=== PATIENT | female | born 1975 | race Caucasian/White ===

== ENCOUNTER 2019-07-22 15:30 | Outpatient (RCR) | payer OTHER, SELFPAY ==
--- NOTE | 2019-06-27 16:02 | HP.OTEVAL ---
Patient's Visit Information MARY JO MALDONADO is a 43 year old F, referred to Occupational Therapy by Jose D Duran MD, with a diagnosis of right Metacapal. Date of Evaluation: 06/27/19 Occupational Therapist: HERNANDEZ Maurer/Jonah, CHT - Subjective Subjective: This 43 year old female was seen for OT eval with dx. of closed displaced fx of neck of 5th Metacarpal bone- about two weeks ago- sx was 2018. Order is for hand based orthoplast orthosis in safe position- allowed to start active motion now active assistive motion at 2-4 weeks NO gripping for 4 weeks. Pt s/p 1 week 1 day s/p ORIF MC neck fracture with headless screw. - Pain right hand 2 Pain Intensity Range: 2, 6 - ROM ROM Comments: right LF MCP 0/10 PIP -15/50. right RF MCP 0/30 PIP 65. right MF MCP 0/65 PIP 100 - Strength Hearing Aid Repairer: right NT left 55# Lateral Pinch: right NT left 12# Tripod Pinch: right NT left 14# - Sensation Sensation Comments: denies - Quick DASH-Disab of Arm,Shoulder& Hand Quick DASH Score: 68.3325 - Goals Goal:: Pt will demo an increase in right composite fist equal to unaffected left composite fist to return pt to OF with grooming, dressing and home mtg tasks by D/C. Pt will demo the ability to form a composite fist to hold and receive 10 coins without dropping coins/ and coin manipulation/money mtg. tasks by D/C. Pt will demo the ability to form a composite fist to return to performing BADLs and IADLS at PLOF by d/c. Goal:: Pt will report pain no greater than 1/10 with use of affected hand with BADLs and IADLs by d/c. Goal:: Pt will demo improvement with FMS demo by IND with manipulating fasteners by d/c Goal:: Pt will demo ind. Donning/doffing of custom orthosis by end of 1st session. Pt will demonstrate understanding of orthosis use and precautions by end of 1st session and demonstrate knowledge of returning to clinic if orthosis needs adj. to increase comfort by end of 1st session. - Rehabilitation General Assessment: PT demo 1 week and 1 day s/p ORIF MC neck fracture with headless screw- pt demo crystal newrosa healing fx, limited ROM and pain. Pt demo need for skilled OT services 1-2 x week for to provide custom orthosis (hand based intrinsic safe position). along with ROM ex. Today pt was van. custom orthosis hand based -therapist attempted to get pt in intrisic safe position pt to painful to ken. positioning- able to get MCP to 40* flex- pt ed. pt on precautions of orthosis, skin care and use. pt demo understanding and demo IND. donning and doffing orthosis. pt request HEP- therapist ed. pt on dr. order on ROM- pt demo understanding- pt to return if orthosis req. adj. to increase comfort and use. pt demo understanding and agree to POC. Rehabilitation Potential: Good - Anticipated Interventions Anticipated Interventions: A/AAROM/PROM, Strengthening, Triggerpoint Release, Desensitization, Fine Motor Coord/Padilla - Visit Plan Frequency: 1-2x /Week Duration: 6 Weeks TEXT: Thank you for the opportunity to evaluate your patient. For Medicare and Medicare HMO plans, please review the plan of care and approve it. It will need to be FAXED BACK to us at [phone] for Medicare purposes. Please let me know if there are questions or concerns regarding this plan of care. Physician Signature: Date:
--- NOTE | 2019-07-22 16:04 | HP.OTDCSUM_ITS ---
HP - OT D/C Summary It has been my pleasure to treat MARY JO MALDONADO under orders from Jose D Duran MD, for the diagnosis of right Metacapal for a total of 5 visit(s). Please see the following information for a summary of their discharge status. - Objective Objective/Function: right MCP 0/20 increase from 10 - Goals Patient Goals: Regain Mobility, Regain Strength, Decrease Pain, Decrease Swelling/Stiffness, Improve Fine Motor Skills, Use Hand/Wrist/Arm Normally Ag ain, Increase ROM Other: orthosis use Goal:: Pt will demo an increase in right composite fist equal to unaffected left composite fist to return pt to PLOF with grooming, dressing and home mtg tasks by D/C. Pt will demo the ability to form a composite fist to hold and receive 10 coins without dropping coins/ and coin manipulation/money mtg. tasks by D/C. Pt will demo the ability to form a composite fist to return to performing BADLs and IADLS at PLOF by d/c. Goal:: Pt will report pain no greater than 1/10 with use of affected hand with BADLs and IADLs by d/c. Goal:: Pt will demo improvement with FMS demo by IND with manipulating fasteners by d/c Goal:: Pt will demo ind. Donning/doffing of custom orthosis by end of 1st session. Pt will demonstrate understanding of orthosis use and precautions by end of 1st session and demonstrate knowledge of returning to clinic if orthosis needs adj. to increase comfort by end of 1st session. - Plan Plan: cont with ROM. adj . orthosis - D/C Information Discharge Comments: Pt seen for 5 OT visits- pt demo with limited MP gains in ROM- pt did return to and states she will have sx in Sep. for scar tissue- untill then pt to cont with HEP of ROM/ PROM/ and scar mtg. pt to call with question or concerns If there are questions or concerns regarding this patient's occupational therapy, please fell free to call me at [phone]. Thank you for the referral of this patient. Sincerely, Kavita Harvey, OTR/L, CHT
== END 2019-07-22 19:00 | disposition home or self-care (01) ==
LOC: OT 15:30
PROVIDERS: Family Provider Family Medicine; PCP Family Medicine; Referring Provider Orthopaedic Surgery; Visit Provider Orthopaedic Surgery
DX: S62.336D Displaced fracture of neck of fifth metacarpal bone, right hand, subsequent encounter for fracture with routine healing (principal)
CPT/HCPCS: 97140; 97166; 97760

== ENCOUNTER → 2019-10-31 10:45 | Outpatient (CLI) | payer OTHER, SELFPAY ==
[2019-10-31 12:23] LABS: Absolute Lymphocyte Count 1.75 X10^3/uL (0.83-4.51); Absolute Neutrophil Count 5.2 X10^3/uL (2.0-7.7); Basophil# 0.04 X10^3/uL; Basophil% 0.5 % (0-1); Eosinophil# 0.27 X10^3/uL; Eosinophils% 3.3 % (0-5); Hematocrit 41.2 % (37-47); Hemoglobin 13.7 g/dL (12.0-15.0); Lymphocyte # 1.75 X10^3/ul (4.0); Lymphocyte % 21.7 % (19-41); Mean Corp Hgb Conc 33.3 g/dL (32-36); Mean Corpuscular Hgb 29.8 pg (27.0-32.0); Mean Corpuscular Volume 89.8 fL (81-99); Mean Platelet Vol. 10.3 fl (6.2-12.0); Monocyte# 0.75 X10^3/uL; Monocyte% 9.3 % (0-10); NRBC Flagged by Analyzer 0 % (0-5); Neutrophil # 5.21 X10^3/uL (2.7-7.7); Neutrophil % 64.6 % (47-70); Platelet Count 348 K/mm3 (150-450); RBC Distribution Width CV 12.6 % (11.6-14.6); RBC Distribution Width SD 41.3 fl (35.1-43.9); Red Blood Count 4.59 M/mm3 (4.2-5.4); White Blood Count 8.1 K/mm3 (4.4-11.0)
[2019-10-31 12:37] LABS: AST(SGOT) 18 U/L (15-37); Alanine Aminotransfer ALT/SGPT 32 U/L (13-56); Albumin, Serum 3.9 g/dL (3.2-5.0); Alkaline Phosphatase 93 U/L (45-117); Anion Gap 7 (5-15); BUN 12 mg/dL (7-18); BUN/Creat Ratio 12.3 RATIO (10-20); Calcium,Total 8.8 mg/dL (8.5-10.1); Chloride 100 mmol/L (98-107); Cholesterol 253 mg/dL (200); Creatinine, Serum 0.98 mg/dL (0.55-1.02); EST Glomerular Filtration Rate 65 mL/min (>60); Est Glom Filt Rate - Afr Amer 79 mL/min (>60); Globulin 3.9 g/dL (2.2-4.2); Glucose 86 mg/dL (74-106); High Density Lipoprotein 49 mg/dL; Protein, Total 7.8 g/dL (6.4-8.2); Sodium Level 137 mmol/L (136-145); T4 Free Direct 0.77 ng/dL (0.76-1.46); Triglycerides 118 mg/dL; Very Low Density Lipoprotein 24 mg/dL (5-40)
[2019-10-31 12:39] LABS: Hemoglobin A1c 5.3 % (4.2-6.3)
[2019-10-31 12:42] LABS: hCG Titer Quant., Serum 4 mIU/mL (1-3)
== END ==
PROVIDERS: Family Provider Family Medicine; PCP Family Medicine; Visit Provider Family Medicine
DX: Z00.00 Encounter for general adult medical examination without abnormal findings (principal); N93.9 Abnormal uterine and vaginal bleeding, unspecified; R63.5 Abnormal weight gain
CPT/HCPCS: 36415; 80053; 80061; 82533; 83036; 84439; 84443; 84702; 85025

== ENCOUNTER → 2019-12-31 15:13 | Outpatient (CLI) | payer OTHER, SELFPAY ==
[2017-06-24 12:03] VITALS: BMI 37.3
[2019-12-31 17:49] LABS: Anion Gap 5 (5-15); BUN 11 mg/dL (7-18); BUN/Creat Ratio 13.5 RATIO (10-20); Calcium,Total 8.8 mg/dL (8.5-10.1); Chloride 104 mmol/L (98-107); Cholesterol 199 mg/dL (200); Creatinine, Serum 0.82 mg/dL (0.55-1.02); EST Glomerular Filtration Rate 81 mL/min (>60); Est Glom Filt Rate - Afr Amer 98 mL/min (>60); Glucose 91 mg/dL (74-106); High Density Lipoprotein 41 mg/dL; Potassium 3.7 mmol/L (3.5-5.1); Sodium Level 137 mmol/L (136-145); T4 Free Direct 1.24 ng/dL (0.76-1.46); Thyroid Stim Hormone (TSH) 0.08 uIU/mL (0.358-3.74); Triglycerides 151 mg/dL; Very Low Density Lipoprotein 30 mg/dL (5-40)
== END ==
PROVIDERS: Family Provider Family Medicine; PCP Family Medicine; Visit Provider Family Medicine
DX: E03.9 Hypothyroidism, unspecified (principal); E78.5 Hyperlipidemia, unspecified
CPT/HCPCS: 36415; 80048; 80061; 84439; 84443

== ENCOUNTER → 2020-01-30 14:31 | Outpatient (CLI) | payer OTHER, SELFPAY ==
[2017-06-24 12:03] VITALS: BMI 37.3
[2020-01-30 18:05] LABS: Free T3 3.1 pg/mL (2.18-3.98); T4 Free Direct 0.76 ng/dL (0.76-1.46); T4 Total, Thyroxin 6.5 ug/dL (4.8-13.9); Thyroid Stim Hormone (TSH) 0.29 uIU/mL (0.358-3.74)
[2020-02-07 20:06] LABS: Thyroxin Bind Glob (TBG) 22 ug/mL (13-39)
[2020-02-07 22:14] LABS: Anti-Thyroglobulin AB 10.8 IU/mL (0.0-0.9); Thyroglobulin RIA 3.8 ng/mL (.); Thyroid Peroxidase AB 148 IU/mL (0-34)
== END ==
PROVIDERS: PCP Family Medicine; Referring Provider Family Medicine; Visit Provider Family Medicine
DX: E03.9 Hypothyroidism, unspecified (principal)
CPT/HCPCS: 36415; 84432; 84436; 84439; 84442; 84443; 84481; 86376; 86800

== ENCOUNTER → 2020-05-25 15:20 | Outpatient (CLI) | payer OTHER, SELFPAY ==
[2020-05-25 18:26] LABS: Free T3 2.5 pg/mL (2.18-3.98); T4 Free Direct 0.82 ng/dL (0.76-1.46); T4 Total, Thyroxin 7.2 ug/dL (4.8-13.9); Thyroid Stim Hormone (TSH) 0.06 uIU/mL (0.358-3.74)
[2020-05-28 15:31] LABS: Thyroxin Bind Glob (TBG) 21 ug/mL (13-39)
== END ==
PROVIDERS: PCP Family Medicine; Referring Provider Family Medicine; Visit Provider Family Medicine
DX: E03.9 Hypothyroidism, unspecified (principal)
CPT/HCPCS: 36415; 84436; 84439; 84442; 84443; 84481

== ENCOUNTER → 2020-12-31 15:30 | Outpatient (CLI) | payer OTHER, SELFPAY ==
[2020-08-03 10:40] VITALS: BMI 30.9
[2020-12-31 18:04] LABS: T4 Free Direct 1.31 ng/dL (0.76-1.46); Thyroid Stim Hormone (TSH) 0.08 uIU/mL (0.358-3.74)
== END ==
LOC: MTLAB 15:32
PROVIDERS: PCP Family Medicine; Referring Provider Internal Medicine Endocrinology, Diabetes & Metabolism; Visit Provider Internal Medicine Endocrinology, Diabetes & Metabolism
DX: E03.8 Other specified hypothyroidism (principal); E06.3 Autoimmune thyroiditis
CPT/HCPCS: 36415; 84439; 84443

== ENCOUNTER → 2021-04-01 16:24 | Outpatient (CLI) | payer OTHER, SELFPAY ==
[2020-08-03 10:40] VITALS: BMI 30.9
[2021-04-01 18:11] LABS: Thyroid Stim Hormone (TSH) 0.23 uIU/mL (0.358-3.74)
== END ==
PROVIDERS: PCP Family Medicine; Referring Provider Internal Medicine Endocrinology, Diabetes & Metabolism; Visit Provider Internal Medicine Endocrinology, Diabetes & Metabolism
DX: E03.8 Other specified hypothyroidism (principal); E06.3 Autoimmune thyroiditis
CPT/HCPCS: 36415; 84439; 84443

== ENCOUNTER → 2022-03-01 | Outpatient (CLI) | payer OTHER, SELFPAY ==
[2022-03-01 15:22] LABS: T4 Free Direct 0.99 ng/dL (0.76-1.46); Thyroid Stim Hormone (TSH) 1.32 uIU/mL (0.358-3.74)
== END | disposition home or self-care (01) ==
LOC: MTLAB 12:44
PROVIDERS: PCP Family Medicine; Referring Provider Family Medicine; Visit Provider Family Medicine
DX: E03.9 Hypothyroidism, unspecified (principal)
CPT/HCPCS: 36415; 84439; 84443

== ENCOUNTER → 2025-06-25 | Outpatient (CLI) | payer OTHER, SELFPAY ==
[2025-06-25 13:09] LABS: AST(SGOT) 15 U/L (<=31); Alanine Aminotransfer ALT/SGPT 14 U/L (<=34); Albumin, Serum 4.0 g/dL (3.5-5.0); Alkaline Phosphatase 74 U/L (35-104); Anion Gap 11 (5-15); BUN 7 mg/dL (4-19); BUN/Creat Ratio 7.2 RATIO (10-20); Calcium,Total 9.3 mg/dL (7.6-11.0); Carbon Dioxide 22.8 mmol/L (21.0-32.0); Chloride 106 mmol/L (98-108); Cholesterol 187 mg/dL (<=200); Globulin 3.1 g/dL (2.2-4.2); Glucose 105 mg/dL (70-99); Low Density Lipoprotein Calc. 110 mg/dL; Potassium 4.1 mmol/L (3.3-5.1); Triglycerides 96 mg/dL; Very Low Density Lipoprotein 19 mg/dL (5-40); Vitamin D,25 Hydroxy 24.0 ng/mL (30-100); cholesterol:hdl ratio screen 3.23
[2025-06-25 13:14] LABS: Hematocrit 38.1 % (37-47); Hemoglobin 12.4 g/dL (12.0-15.0); Immature Granulocytes Count 0.030 X10^3/uL (0.0-0.0); Mean Corp Hgb Conc 32.5 g/dL (32-36); Mean Corpuscular Volume 90.7 fL (81-99); Mean Platelet Vol. 11.0 fl (6.2-12.0); NRBC Flagged by Analyzer 0 % (0-5); Platelet Count 289 K/mm3 (150-450); RBC Distribution Width CV 13.4 % (11.6-14.6); RBC Distribution Width SD 45.1 fl (35.1-43.9); Red Blood Count 4.20 M/mm3 (4.2-5.4); White Blood Count 9.6 K/mm3 (4.4-11.0)
== END | disposition home or self-care (01) ==
LOC: BFHLAB 09:09
PROVIDERS: PCP Family Medicine; Visit Provider Family Medicine
DX: Z00.00 Encounter for general adult medical examination without abnormal findings (principal); E03.9 Hypothyroidism, unspecified; E55.9 Vitamin D deficiency, unspecified
CPT/HCPCS: 36415; 80053; 80061; 82306; 84439; 85025

== ENCOUNTER → 2025-07-23 | Outpatient (CLI) | payer OTHER, SELFPAY ==
--- NOTE | 2025-07-23 12:02 | BI_ITS ---
EXAM: SCRN MAMM (CAD)W/DEVIN BILAT DATE: 07/23/2025 CLINICAL HISTORY: F, Age 49 y/o , SCREENING No family history. TECHNIQUE: Procedure Code: BISMWCADBTOM Modality: MG Procedure: SCRN MAMM (CAD)W/DEVIN BILAT COMPARISON: Baseline examination. FINDINGS: TISSUE DENSITY: The breasts are heterogeneously dense, which may obscure small masses. Bilateral Breast Mammographic Findings: No significant masses, calcifications or other abnormalities are identified. Small benign-appearing axillary lymph nodes. BI/SCRN MAMM (CAD)W/DEVIN BILAT IMPRESSION: Unremarkable bilateral screening mammogram. OVERALL FINAL ASSESSMENT BI-RADS 2: BENIGN RECOMMENDATION: Routine annual follow-up in 1 Year Additional Recommendation none A letter with findings and recommendations will be mailed to the patient. Reading Location: [id number]
--- NOTE | 2025-07-23 12:02 | BI_ITS ---
EXAM: SCRN MAMM (CAD)W/DEVIN BILAT DATE: 07/23/2025 CLINICAL HISTORY: F, Age 49 y/o , SCREENING No family history. TECHNIQUE: Procedure Code: BISMWCADBTOM Modality: MG Procedure: SCRN MAMM (CAD)W/DEVIN BILAT COMPARISON: Baseline examination. FINDINGS: TISSUE DENSITY: The breasts are heterogeneously dense, which may obscure small masses. Bilateral Breast Mammographic Findings: No significant masses, calcifications or other abnormalities are identified. Small benign-appearing axillary lymph nodes. BI/SCRN MAMM (CAD)W/DEVIN BILAT IMPRESSION: Unremarkable bilateral screening mammogram. OVERALL FINAL ASSESSMENT BI-RADS 2: BENIGN RECOMMENDATION: Routine annual follow-up in 1 Year Additional Recommendation none A letter with findings and recommendations will be mailed to the patient. Reading Location: [id number]
== END | disposition home or self-care (01) ==
LOC: OPBI 12:00
PROVIDERS: PCP Family Medicine; Referring Provider Family Medicine; Visit Provider Family Medicine
DX: Z12.31 Encounter for screening mammogram for malignant neoplasm of breast (principal)
CPT/HCPCS: 77063; 77067

== ENCOUNTER 2025-07-24 19:42 | Emergency (ER) | payer OTHER, SELFPAY ==
[2025-07-24 19:43] VITALS: BP 154/87; PULSE 94; RESP 18; TEMP 36.4; O2SAT 100; BMI 33.0
--- OUTSIDE RECORDS SUMMARY | 2025-07-24 20:41 | XMS RPT_ITS | CCD ---
Author Organization [facility] Care Team Providers Care Electrical Research Engineer Name Role Phone Gigi Walker DO Primary Care Provider DR GIGI WALKER DO Primary Care Unavailab mayito ROGERS MD, DR GERSON Sorenson Attending GIGI Baker Primary Care Unavailable GIGI WALKER Primary Care Unavailable Gigi Walker DO Primary Care Provider Dr. Gigi Walker DO Primary Care Provider [phone] Dr. Gigi Walker DO Attending Provider GIGI WALKER Referring Unavailable ARUNA HARDWICK JR Admitting Unavailable ARUNA HARDWICK JR Primary Care Unavailable ARUNA HARDWICK JR Attending Unavailable GIGI WALKER Consulting Unavailable PROVIDER, UNKNOWN Consulting Unavailable GUANAKO JEROME DR Admitting Unavailable GUANAKO JEROME DR Primary Care Unavailable GUANAKO JEROME DR Attending Unavailable GIGI WALKER Consulting Unavailable PROVIDER, UNKNOWN Consulting Unavailable Gigi Walker Primary Care Unavailable Gigi Walker Referring Unavailable Gigi Walker Attending Unavailable Gigi Walker Primary Care Unavailable Gigi Walker Attending Unavailable Gigi Walker Attending Unavailable Gigi Walker Primary Care Unavailable Allergies Allergy Classification Reported Allergen(s) Allergy Type Date of Onset Reaction(s) Facility (5 sources) Acetaminophen / HYDROcodone; Translations: [HYDROCODONE-ACET AMINOPHEN] Drug Allergy 4 GI Upset [facility] (5 sources) Amoxicillin; Translations: [AMOXICILLIN] Drug Allergy 1 [facility] (5 sources) Codeine; Translations: [CODEINE] Drug Allergy 4 GI Upset [facility] (6 sources) traMADol; Translations: [TRAMADOL] Drug Allergy 4 GI Upset [facility] (2 sources) Adhesive Tape; Translations: [adhesive tape] Allergy to substance 0 Unknown [facility] (1 source) Penicillins Propensity to adverse reactions 0 Vomiting [facility] (1 source) Penicillins Drug allergy (disorder) 0 [facility] Repository (1 source) traMADol Drug Allergy 0 [facility] Repository Medications Current Medications Medication Drug Class(es) Dates Sig (Normalized) Sig (Original) Acetaminophen (4 sources) ACETAMINOPHEN (T YLENOL ORAL) Take by mouth. Active ACETAMINOPHEN (T YLENOL ORAL) Take by mouth. 0 Active Comment on above: Take by mouth. acetaminophen 250 mg / aspirin 250 mg / caffeine 65 mg oral tablet (1 source) Platelet Aggregation Inhibitor, Nonsteroidal Anti-inflammatory Drug, Central Nervous System Stimulant, Methylxanthine Start: 08-03-20 Aspirin-Acetaminop hen-Caffeine (Excedrin Extra Strength) 250-250-65 mg tablet Active 1 {tbl} PO ONCE August 03, 2020 12:00am ALPRAZolam 1 mg oral tablet (1 source) Benzodiazepine Start: 06-24-20 17 take 1-2 mg by mouth twice daily as needed for anxiety Alprazolam (Xanax) 1 MG tablet Active 1 - 2 mg PO TWICE DAILY NEEDED as needed for Anxiety June 24, 2017 12:00am citalopram 20 mg oral tablet (3 sources) Serotonin Reuptake Inhibitor Start: 10-29-20 21 take 1 tablet by mouth once daily citalopram (CELEXA) 20 mg tablet Take 20 mg by mouth once daily. 10/29/2021 Active Comment on above: Take 20 mg by mouth once daily. ibuprofen 200 mg oral capsule (4 sources) Nonsteroidal Anti-inflammatory Drug Start: 08-03-20 take 1 capsule by mouth every six hours as needed Ibuprofen (Motrin Ib) 200 mg capsule Active 200 mg PO EVERY 6 HOURS as needed August 03, 2020 12:00am End: 07-14-2022 IBUPROFEN ORAL Take by mouth . 07/14/2022 Discontinued End: 07-14-2022 IBUPROFEN ORAL Take by mouth . 0 07/14/2022 Discontinued Comment on above: Take by mouth. levothyroxine sodium 0.088 mg oral tablet (10 sources) l-Thyroxine Start: 07-14-2022 take 1 tablet by mouth once daily levothyroxine (SYNTHROID) 88 mcg tablet Take 1 tablet by mouth once daily. 07/14/2022 Active Start: 01-01-2021 take 1 tablet by daylin th once daily Levothyroxine 100 mcg tablet Active 100 ug PO DAILY 30 January 01, 2021 1:00am Start: 08-31-2020 End: 07-14-2022 levothyroxine (SYNTHROID) 11 2 mcg tablet Take 88 mcg by mouth once daily. 08/31/2020 07/14/2022 Discontinued Start: 08-03-2020 End: 01-01-2021 take 1 tablet by mouth once daily Levothyroxine 112 mcg tablet Discontinued 112 ug PO DAILY 28 04August 03, 2020 12:00am January 01, 2021 8:44am Start: 10-31-2019 End: 07-14-2022 take 1 tablet by mouth once daily levothyroxine (SYNTHROID) 125 mcg tablet Take 1 tablet by mouth once daily. 10/31/2019 07/14/2022 Discontinued Comment on above: Take 1 tablet by daylin th once daily. Take 88 mcg by mouth once daily. LORazepam 0.5 mg oral tablet (4 sources) Benzodiazepine Start: 0 take 0.5-1 mg by mouth every twelve hours as needed LORazepam (ATIVAN) 0.5 mg Take 0.5-1 mg by mouth twice daily as needed. 06/01/2020 Active Comment on above: Take 0.5-1 mg by daylin th twice daily as needed. magnesium hydroxide 80 mg/ml oral suspension (1 source) Start: 0 take 1 mL by mouth once daily as needed Magnesium Hydroxide (Dulcolax (Magnesium Hydroxide)) 400 mg/5 mL suspension Active 5 mL PO DAILY as needed August 03, 2020 12:00am omeprazole 20 mg delayed release oral capsule (10 sources) Proton Pump Inhibitor Start: 0 omeprazole (PRILOSEC) 20 mg capsule 40 mg. 09/27/2020 Active Start: 08-03-2020 End: 02-02-2021 take 1 capsule by mouth once daily Omeprazole 20 mg capsule,delayed release(DR/EC) Active 20 mg PO DAILY 30 February 02, 2021 9:11am End: 07-14-2022 take 20 mg by mouth once daily Omeprazole 20 mg TbEC T tia 20 mg by mouth once daily. 07/14/2022 Discontinued Comment on above: 40 mg. Take 20 mg by mouth once daily. Completed/Discontinued Medications Medication Drug Class(es) Dates Sig (Normalized) Sig (Original) ondansetron 4 mg oral tablet (1 source) Serotonin-3 Receptor Antagonist Start: 11-27-2019 End: 05-18-2021 take 1 tablet by mouth every eight hours as needed ondansetron (ZOFRAN) 4 mg tablet Take 1 tablet by mouth every 8 hours as needed. 15 tablet 11/27/2019 05/18/2021 Discontinued (Course of therapy completed) thyroid (long-term) 60 mg oral tablet (5 sources) Start: 08-03-2020 End: 07-14-2022 take 1 tablet by mouth once daily Thyroid (Pork) (Hamilton Thyroid) 60 mg tablet Discontinued 60 mg PO DAILY August 03, 2020 12:00am August 03, 2020 11:31am Start: 08-03-2020 End: 08-03-2020 take 1 tablet by mouth once daily Thyroid (Pork) (Hamilton Thyroid) 90 mg tablet Discontinued 90 mg PO DAILY August 03, 2020 12:00am August 03, 2020 11:31am Comment on above: Take 60 mg by mouth once daily. Problems Active Problems Problem Classification Problem Date Documented Date Episodic/Chronic Anxiety disorders (4 sources) Anxiety; Translations: [Anxiety disorder, unspecified] Onset: 06-17-2019 06-17-2019 Chronic Esophageal disorders (4 sources) Gastroesophageal reflux disease without esophagitis; Translations: [Gastro-esophageal reflux disease without esophagitis] Onset: 06-17-2019 06-17-2019 Chronic Headache; including migraine (5 sources) Refractory migraine without aura; Translations: [Migraine without aura, intractable, without status migrainosus] Onset: 08-24-2018 08-24-2018 Chronic Other connective tissue disease (1 source) Pain in right hand; Translations: [Pain in right hand] 09-28-2020 Episodic Other nutritional; endocrine; and metabolic disorders (1 source) Obesity; Translations: [Other obesity due to excess calories] Onset: 06-17-2019 11-11-2019 Chronic Other nutritional; endocrine; and metabolic disorders (3 sources) Obesity caused by energy imbalance; Translations: [Other obesity due to excess calories] Onset: 06-17-2019 11-11-2019 Chronic Other screening for suspected conditions (not mental disorders or infectious disease) (1 source) Encounter for screening mammogram for malignant neoplasm of breast; Translations: [Encounter for screening mammogram for malignant neoplasm of breast] Onset: 07-23-2025 Episodic Spondylosis; intervertebral disc disorders; other back problems (2 sources) Backache; Translations: [Dorsalgia, unspecified] Episodic Thyroid disorders (5 sources) Hypothyroidism; Translations: [Other specified hypothyroidism] Onset: 11-11-2019 11-11-2019 Chronic Past or Other Problems Problem Classification Problem Date Documented Da te Episodic/Chronic Fluid and electrolyte disorders (4 sources) Hypokalemia; Translations: [Hypokalemia] Onset: 11-11-2019 11-11-2019 Episodic Fracture of upper limb (4 sources) Closed fracture of neck of fifth metacarpal bone; Translations: [Displaced fracture of neck of fifth metacarpal bone, right hand, initial encounter for closed fracture] Onset: 06-17-2019 06-17-2019 Episodic Other connective tissue disease (3 sources) Adhesive capsulitis of right shoulder; Translations: [Adhesive capsulitis of right shoulder] Onset: 12-30-2024 Episodic Other connective tissue disease (1 source) Calcific tendinitis of right shoulder; Translations: [Calcific tendinitis of right shoulder] Onset: 12-30-2024 Episodic Other non-traumatic joint disorders (4 sources) Finger joint stiff; Translations: [Stiffness of right hand, not elsewhere classified] Onset: 12-30-2019 12-30-2019 Episodic Screening and history of mental health and substance abuse codes (4 sources) Ex-smoker; Translations: [Personal history of nicotine dependence] Onset: 06-17-2019 06-17-2019 Episodic Sprains and strains (1 source) Strain of muscle, fascia and tendon of triceps, right arm, subsequent encounter; Translations: [Strain of muscle, fascia and tendon of triceps, right arm, subsequent encounter] Onset: 12-30-2024 Episodic Results Test Name Value Interpretation Reference Range Facility SCRN MAMM (CAD)W/DEVIN León n 07-23-2025 SCRN MAMM (CAD)W/DEVIN BILAT [facility] Imaging Services [address] [place] [address] SCRN MAMM (CAD)W/DEVIN BILAT MR#: [id number] Acct: [id number] Name: MARY JO MALDONADO Rep #: [id number] : 1975 F 49 From: Steve ortega MD PCP: Dr. Gigi Walker DO Status: REG CLI Study: SCRN MAMM (CAD)W/DEVIN BILAT Date of Exam: 07/01 02/21 Exam# [id number] Ordering Dr: Gigi Walker DO EXAM: SCRN MAMM (CAD)W/DEVIN BILAT DATE: 07/23/2025 CLINICAL HISTORY: F, Age 49 y/o , SCREENING No family history. TECHNIQUE: Procedure Code: [id number] Modality: MG Procedure: SCRN MAMM (CAD)W/DEVIN BILAT COMPARISON: Baseline examination. FINDINGS: TISSUE DENSITY: The breasts are heterogeneously dense, which may obscure small masses. Bilateral Breast Mammographic Findings: No significant masses, calcifications or other abnormalities are identified. Small benign-appearing axillary lymph nodes. BI/SCRN MAMM (CAD)W/DEVIN BILAT IMPRESSION: Unremarkable bilateral screening mammogram. OVERALL FINAL ASSESSMENT BI-RADS 2: BENIGN RECOMMENDATION: Routine annual follow-up in 1 Year Additional Recommendation none A letter with findings and recommendations will be mailed to the patient. Reading Location: [facility] CC: Dr. Gigi Walker DO Hazardous Waste Technician: Signed Normal [facility] Absolute lymphocyte countOrd ered By: Gigi Walker on 06-25-2025 Lymphocytes Auto (Unsp spec) [#/Vol] 0.95 10*3/uL 0.83-4.51 [facility] Absolute neutrophil countOrd ered By: Gigi Walker on 06-25-2025 Neutrophils (Bld) [#/Vol] 7.7 10*3/uL 2.0-7.7 [facility] Anion gap in Serum or Plasma Ordered By: Gigi Walker on 06-25-2025 Anion gap [Moles/Vol] 11 mmol/L 5-15 [facility] Automated lymphocyte count a s percentage of total leukocytesOrdered By: Gigi Walker on 06-25-2025 Lymphocytes/100 WBC Auto (Unsp spec) 9.9 % Low 19-41 [facility] BUN/creatinine ratioOrdered By: Gigi Walker on 06-25-2025 Urea nitrogen/Creatinine [Mass ratio] 7.2 mg/mg Low 10-20 [facility] Basophil percentageOrdered B y: Gigi Walker on 06-25-2025 Basophils/100 WBC (Bld) 0.5 % 0-1 [facility] Bilirubin, totalOrdered By: Gigi Walker on 06-25-2025 Bilirubin [Mass/Vol] 0.41 mg/dL 0.00-1.30 [facility] CBC W/Diff, Automatedon 05-31 Absolute Lymph 0.95 X10 3/uL Normal 0.83-4.51 [facility] Comment on above: Performed By: #### L 500.4100, L500.4050, L100.0100, L506.1001, L506.0400 #### [facility] Laboratory [address] [place], [address] Absolute Neut 7.7 X10 3/uL Normal 2.0-7.7 [facility] Comment on above: Performed By: #### L 500.4100, L500.4050, L100.0100, L506.1001, L506.0400 #### [facility] [address] [place], [address] Basophils/100 WBC (Bld) 0.5 % Normal 0-1 [facility] Comment on above: Performed By: #### L 500.4100, L500.4050, L100.0100, L506.1001, L506.0400 #### [facility] [address] [place], [address] Eosinophils/100 WBC (Bld) 2.5 % Normal 0-5 [facility] Comment on above: Performed By: #### L 500.4100, L500.4050, L100.0100, L506.1001, L506.0400 #### [facility] [address] [place], [address] Erythrocyte distribution width (RBC) [Ratio] 13.4 % Normal 11.6-14.6 [facility] Comment on above: Performed By: #### L 500.4100, L500.4050, L100.0100, L506.1001, L506.0400 #### [facility] [address] [place], [address] Hematocrit (Bld) [Volume fraction] 38.1 % Normal 37-47 [facility] Comment on above: Performed By: #### L 500.4100, L500.4050, L100.0100, L506.1001, L506.0400 #### [facility] [address] [place], [address] Hemoglobin (Bld) [Mass/Vol] 12.4 g/dL Normal 12.0-15.0 [facility] Comment on above: Performed By: #### L 500.4100, L500.4050, L100.0100, L506.1001, L506.0400 #### [facility] [address] [place], [address] IG% 0.300 Normal 0.0-0.9 [facility] Comment on above: Result Comment: IG% - Immature Granulocytes (promyelocytes, myelocytes and metamyelocytes) > 1% indicates that a LEFT SHIFT is Present. Performed By: #### L 500.4100, L500.4050, L100.0100, L506.1001, L506.0400 #### [facility] [address] [place], [address] Lymphocytes/100 WBC (Bld) 9.9 % Low 19-41 [facility] Comment on above: Performed By: #### L 500.4100, L500.4050, L100.0100, L506.1001, L506.0400 #### [facility] [address] [place], [address] MCH (RBC) [Entitic mass] 29.5 pg Normal 27.0-32.0 [facility] Comment on above: Performed By: #### L 500.4100, L500.4050, L100.0100, L506.1001, L506.0400 #### [facility] [address] [place], [address] MCHC (RBC) [Mass/Vol] 32.5 g/dL Normal 32-36 [facility] Comment on above: Performed By: #### L 500.4100, L500.4050, L100.0100, L506.1001, L506.0400 #### [facility] [address] [place], [address] MCV (RBC) [Entitic vol] 90.7 fL Normal 81-99 [facility] Comment on above: Performed By: #### L 500.4100, L500.4050, L100.0100, L506.1001, L506.0400 #### [facility] [address] [place], [address] Monocytes/100 WBC (Bld) 7.0 % Normal 0-10 [facility] Comment on above: Performed By: #### L 500.4100, L500.4050, L100.0100, L506.1001, L506.0400 #### [facility] [address] [place], [address] Neutrophils/100 WBC (Bld) 79.8 % High 47-70 [facility] Comment on above: Performed By: #### L 500.4100, L500.4050, L100.0100, L506.1001, L506.0400 #### [facility] [address] [place], [address] Nucleated RBC (Bld) [#/Vol] 0 10*3/uL Normal 0-5 [facility] Comment on above: Performed By: #### L 500.4100, L500.4050, L100.0100, L506.1001, L506.0400 #### [facility] [address] [place], [address] Platelet mean volume (Bld) [Entitic vol] 11.0 fL Normal 6.2-12.0 [facility] Comment on above: Performed By: #### L 500.4100, L500.4050, L100.0100, L506.1001, L506.0400 #### [facility] [address] [place], [address] Platelets (Bld) [#/Vol] 289 10*3/uL Normal 150-450 [facility] Comment on above: Performed By: #### L 500.4100, L500.4050, L100.0100, L506.1001, L506.0400 #### [facility] [address] [place], [address] RBC (Bld) [#/Vol] 4.20 10*6/uL Normal 4.2-5.4 [facility] Comment on above: Performed By: #### L 500.4100, L500.4050, L100.0100, L506.1001, L506.0400 #### [facility] [address] [place], [address] RDW SD 45.1 fl High 35.1-43.9 [facility] Comment on above: Performed By: #### L 500.4100, L500.4050, L100.0100, L506.1001, L506.0400 #### [facility] [address] [place], [address] WBC (Bld) [#/Vol] 9.6 10*3/uL Normal 4.4-11.0 [facility] Comment on above: Performed By: #### L 500.4100, L500.4050, L100.0100, L506.1001, L506.0400 #### [facility] [address] [place], [address] Calculated very low density lipoprotein (VLDL) cholesterol measurementOrdered By: Gigi Walker on 06-25-2025 Calculated very low density lipoprotein (VLDL) cholesterol measurement 19 mg/dL 5-40 [facility] Carbon dioxide, total [Moles /volume] in Central venous bloodOrdered By: Gigi Walker on 06-25-2025 CO2 [Moles/Vol] 22.8 mmol/L 21.0-32.0 [facility] Chloride assayOrdered By: Ryan Walker on 06-25-2025 Chloride [Moles/Vol] 106 mmol/L 98-108 [facility] Comprehensive Metabolic Prof ilon 06-25-2025 Albumin [Mass/Vol] 4.0 g/dL Normal 3.5-5.0 [facility] Comment on above: Performed By: #### L 500.4100, L500.4050, L100.0100, L506.1001, L506.0400 #### [facility] [address] [place], [address] Albumin/Globulin [Mass ratio] 1.3 {ratio} Normal 0.9-2.4 [facility] Comment on above: Performed By: #### L 500.4100, L500.4050, L100.0100, L506.1001, L506.0400 #### [facility] [address] [place], [address] ALK PHOS 74 U/L Normal 35-104 [facility] Comment on above: Performed By: #### L 500.4100, L500.4050, L100.0100, L506.1001, L506.0400 #### [facility] [address] [place], [address] ALT [Catalytic activity/Vol] 14 U/L Normal <=34 [facility] Comment on above: Performed By: #### L 500.4100, L500.4050, L100.0100, L506.1001, L506.0400 #### [facility] [address] [place], [address] AST [Catalytic activity/Vol] 15 U/L Normal <=31 [facility] Comment on above: Performed By: #### L 500.4100, L500.4050, L100.0100, L506.1001, L506.0400 #### [facility] [address] [place], [address] Bilirubin [Mass/Vol] 0.41 mg/dL Normal 0.00-1.30 [facility] Comment on above: Performed By: #### L 500.4100, L500.4050, L100.0100, L506.1001, L506.0400 #### [facility] [address] [place], [address] BUN/CRE 7.2 RATIO Low 10-20 [facility] Comment on above: Performed By: #### L 500.4100, L500.4050, L100.0100, L506.1001, L506.0400 #### [facility] [address] [place], [address] Calcium [Mass/Vol] 9.3 mg/dL Normal 7.6-11.0 [facility] Comment on above: Performed By: #### L 500.4100, L500.4050, L100.0100, L506.1001, L506.0400 #### [facility] [address] [place], [address] Chloride [Moles/Vol] 106 mmol/L Normal 98-108 [facility] Comment on above: Performed By: #### L 500.4100, L500.4050, L100.0100, L506.1001, L506.0400 #### [facility] [address] [place], [address] CO2 [Moles/Vol] 22.8 mmol/L Normal 21.0-32.0 [facility] Comment on above: Performed By: #### L 500.4100, L500.4050, L100.0100, L506.1001, L506.0400 #### [facility] [address] [place], [address] Creatinine [Mass/Vol] 0.94 mg/dL Normal 0.70-1.20 [facility] Comment on above: Performed By: #### L 500.4100, L500.4050, L100.0100, L506.1001, L506.0400 #### [facility] [address] [place], [address] GAP 11 Normal 5-15 [facility] Comment on above: Performed By: #### L 500.4100, L500.4050, L100.0100, L506.1001, L506.0400 #### [facility] [address] [place], [address] GFR/1.73 sq M.predicted among non-blacks MDRD (S/P/Bld) [Vol rate/Area] 74 mL/min/{1.73_m2} Normal >60 [facility] Comment on above: Result Comment: mL/m in/1.73m2 CKD-EPI Creatinine Equation (2020) Performed By: #### L 500.4100, L500.4050, L100.0100, L506.1001, L506.0400 #### [facility] [address] [place], [address] Globulin (S) [Mass/Vol] 3.1 g/dL Normal 2.2-4.2 [facility] Comment on above: Performed By: #### L 500.4100, L500.4050, L100.0100, L506.1001, L506.0400 #### [facility] [address] [place], [address] Glucose [Mass/Vol] 105 mg/dL High 70-99 [facility] Comment on above: Performed By: #### L 500.4100, L500.4050, L100.0100, L506.1001, L506.0400 #### [facility] [address] [place], [address] Potassium [Moles/Vol] 4.1 mmol/L Normal 3.3-5.1 [facility] Comment on above: Performed By: #### L 500.4100, L500.4050, L100.0100, L506.1001, L506.0400 #### [facility] [address] [place], [address] Sodium [Moles/Vol] 140 mmol/L Normal 133-145 [facility] Comment on above: Performed By: #### L 500.4100, L500.4050, L100.0100, L506.1001, L506.0400 #### [facility] [address] [place], [address] T PROT 7.1 g/dL Normal 5.9-8.4 [facility] Comment on above: Performed By: #### L 500.4100, L500.4050, L100.0100, L506.1001, L506.0400 #### [facility] [address] [place], [address] Urea nitrogen [Mass/Vol] 7 mg/dL Normal 4-19 [facility] Comment on above: Performed By: #### L 500.4100, L500.4050, L100.0100, L506.1001, L506.0400 #### [facility] [address] [place], [address] Eosinophil percentageOrdered By: Gigi Walker on 06-25-2025 Eosinophils/100 WBC (Bld) 2.5 % 0-5 [facility] Erythrocyte distribution wid th ratioOrdered By: Gigi Walker on 06-25-2025 Erythrocyte distribution width (RBC) [Ratio] 13.4 % 11.6-14.6 [facility] Erythrocyte distribution wid th standard deviationOrdered By: Gigi Walker on 06-25-2025 Erythrocyte distribution width (RBC) [Ratio] 45.1 fl High 35.1-43.9 [facility] Glomerular filtration rate ( GFR) estimation/1.73 sq m using serum, plasma, or whole bOrdered By: Gigi Walkre on 06-25-2025 GFR/1.73 sq M.predicted among non-blacks MDRD (S/P/Bld) [Vol rate/Area] 74 mL/min/{1.73_m2} >60 [facility] Comment on above: mL/min/1.73m2 CKD-EP I Creatinine Equation (2020) Hematocrit Auto (Bld) [Volum e fraction]Ordered By: Gigi Walker on 06-25-2025 Hematocrit (Bld) [Volume fraction] 38.1 % 37-47 [facility] Hemoglobin measurementOrdere d By: Gigi Walker on 06-25-2025 Hemoglobin (Bld) [Mass/Vol] 12.4 g/dL 12.0-15.0 [facility] Immature granulocytes/100 WB C Auto (Bld)Ordered By: Gigi Walker on 06-25-2025 Immature granulocytes/100 WBC (Bld) 0.300 % 0.0-0.9 [facility] Comment on above: IG% - Immature Granu locytes (promyelocytes, myelocytes and metamyelocytes) > 1% indicates that a LEFT SHIFT is Present. LDL calc ser/plasOrdered By: Gigi Walker on 06-25-2025 Cholesterol in LDL [Mass/Vol] 110 mg/dL [facility] Comment on above: Sqcdogaysl=692-079 m g/dL & Higher Itqa=777 mg/dL or greaterFriedwald Equation for LDL-C Laboratory - Chemistry and C hemistry - challengeOrdered By: Gigi Walker on 06-25-2025 AST [Catalytic activity/Vol] 15 U/L <32 [facility] Lipid Profileon 06-25-2025 CHOL:HDL 3.23 Normal [facility] Comment on above: Performed By: #### L 500.4100, L500.4050, L100.0100, L506.1001, L506.0400 #### [facility] Laboratory [address] [place], [address] Cholesterol [Mass/Vol] 187 mg/dL Normal <=200 [facility] Comment on above: Result Comment: Chol esterol level, Desirable <200 mg/dL Borderline high cholesterol 200-239 mg/dL High cholesterol >=240 mg/dL Recommendations of the NCEP Adult Treatment Panel for the following risk-cutoff thresholds for the [place] population. Performed By: #### L 500.4100, L500.4050, L100.0100, L506.1001, L506.0400 #### [facility] Laboratory [address] [place], [address] Cholesterol in HDL [Mass/Vol] 58 mg/dL Normal [facility] Comment on above: Result Comment: Nickie onal Cholesterol Education Program (NCEP) guidelines: <40 mg/dL: Low HDL-cholesterol (major risk factor for CHD) >= 60 mg/dL: High HDL-cholesterol (negative risk factor for CHD) HDL-cholesterol is affected by a number of factors, e.g. smoking, exercise, hormones, sex and age. Performed By: #### L 500.4100, L500.4050, L100.0100, L506.1001, L506.0400 #### [facility] Laboratory [address] [place], [address] Cholesterol in LDL [Mass/Vol] 110 mg/dL Normal [facility] Comment on above: Result Comment: Bord mrhfzx=849-550 mg/dL Higher Xzwj=632 mg/dL or greater Friedwald Equation for LDL-C Performed By: #### L 500.4100, L500.4050, L100.0100, L506.1001, L506.0400 #### [facility] Laboratory [address] [place], [address] Cholesterol in VLDL [Mass/Vol] 19 mg/dL Normal 5-40 [facility] Comment on above: Performed By: #### L 500.4100, L500.4050, L100.0100, L506.1001, L506.0400 #### [facility] Laboratory [address] [place], [address] Triglyceride [Mass/Vol] 96 mg/dL Normal [facility] Comment on above: Result Comment: The drugs N-Acetylcysteine and Metamizole may falsely depress this assay. Normal range: <150 mg/dL Borderline High: 150-199 mg/dL High: 200-499 mg/dL Very High: >500 mg/dL Performed By: #### L 500.4100, L500.4050, L100.0100, L506.1001, L506.0400 #### [facility] Laboratory [address] [place], [address] MCV (mean corpuscular volume ) determinationOrdered By: Gigi Walker on 06-25-2025 MCV (RBC) [Entitic vol] 90.7 fL 81-99 [facility] Mean corpuscular hemoglobin (MCH) determinationOrdered By: Gigi Walker on 06-25-2025 MCH (RBC) [Entitic mass] 29.5 pg 27.0-32.0 [facility] Mean corpuscular hemoglobin concentration (MCHC) determinationOrdered By: Gigi Walker on 06-25-2025 MCHC (RBC) [Mass/Vol] 32.5 g/dL 32-36 [facility] Mean platelet volume determi nationOrdered By: Gigi Walker on 06-25-2025 Platelet mean volume (Bld) [Entitic vol] 11.0 fL 6.2-12.0 [facility] Monocyte percentageOrdered B y: Gigi Walker on 06-25-2025 Monocytes/100 WBC (Bld) 7.0 % 0-10 [facility] Neutrophil percentageOrdered By: Gigi Walker on 06-25-2025 Neutrophils/100 WBC (Bld) 79.8 % High 47-70 [facility] Nucleated red blood cell per centageOrdered By: Gigi Walker on 06-25-2025 Nucleated RBC/100 WBC (Bld) [Ratio] 0 % 0-5 [facility] Platelet countOrdered By: Ryan Walker on 06-25-2025 Platelets (Bld) [#/Vol] 289 10*3/uL 150-450 [facility] Potassium measurement (mass/ volume)Ordered By: Gigi Wakler on 06-25-2025 Potassium (Unsp spec) [Mass/Vol] 4.1 mmol/L 3.3-5.1 [facility] RBC Auto (Bld) [#/Vol]Ordere d By: Gigi Walker on 06-25-2025 RBC (Bld) [#/Vol] 4.20 10*6/uL 4.2-5.4 [facility] Screening total cholesterol/ high density lipoprotein (HDL) cholesterol ratioOrdered By: Gigi Walker on 06-25-2025 Cholesterol.total/Choles terol in HDL [Mass ratio] 3.23 {ratio} [facility] Serum creatinine measurement (mass/volume)Ordered By: Gigi Walker on 06-25-2025 Creatinine [Mass/Vol] 0.94 mg/dL 0.70-1.20 [facility] Serum globulin measurementOr dered By: Gigi Walker on 06-25-2025 Globulin (S) [Mass/Vol] 3.1 g/dL 2.2-4.2 [facility] Serum glucose measurement (m ass/volume)Ordered By: Gigi Walker on 06-25-2025 Glucose [Mass/Vol] 105 mg/dL High 70-99 [facility] Serum or plasma alanine montoya otransferase (ALT) measurementOrdered By: Gigi Walker on 06-25-2025 ALT [Catalytic activity/Vol] 14 U/L <35 [facility] Serum or plasma albumin alon urement (mass/volume)Ordered By: Gigi Walker on 06-25-2025 Albumin [Mass/Vol] 4.0 g/dL 3.5-5.0 [facility] Serum or plasma albumin/glob ulin mass ratioOrdered By: Gigi Walker on 06-25-2025 Albumin/Globulin [Mass ratio] 1.3 {ratio} 0.9-2.4 [facility] Serum or plasma alkaline kayode sphatase measurementOrdered By: Gigi Walker on 06-25-2025 ALP [Catalytic activity/Vol] 74 U/L 35-104 [facility] Serum or plasma calcium alon urement (mass/volume)Ordered By: Gigi Walker on 06-25-2025 Calcium [Mass/Vol] 9.3 mg/dL 7.6-11.0 [facility] Serum or plasma cholesterol in HDL measurement (mass/volume)Ordered By: Gigi Walker on 06-25-2025 Cholesterol in HDL [Mass/Vol] 58 mg/dL >40 [facility] Comment on above: National Cholesterol Education Program (NCEP) guidelines:<40 mg/dL: Low HDL-cholesterol (major risk factor for CHD)>= 60 mg/dL: High HDL-cholesterol (negative risk factor for CHD)HDL-cholesterol is affected by a number of factors, e.g. smoking, exercise, hormones, sex and age. Serum or plasma cholesterol measurement (mass/volume)Ordered By: Gigi Walker on 06-25-2025 Cholesterol [Mass/Vol] 187 mg/dL <201 [facility] Comment on above: Cholesterol level, D esirable <200 mg/dLBorderline high cholesterol 200-239 mg/dLHigh cholesterol >=240 mg/dLRecommendations of the NCEP Adult Treatment Panel for the following risk-cutoff thresholds for the [place] population. Serum or plasma urea nitroge n measurement (mass/volume)Ordered By: Gigi Walker on 06-25-2025 Urea nitrogen [Mass/Vol] 7 mg/dL 4-19 [facility] Sodium levelOrdered By: Gigi Walker on 06-25-2025 Sodium [Moles/Vol] 140 mmol/L 133-145 [facility] T4 Free Directon 06-25-2025 T4 FREE DIRECT 0.60 ng/dL Low 0.76-1.46 [facility] Comment on above: Performed By: #### L 500.4100, L500.4050, L100.0100, L506.1001, L506.0400 #### [facility] Laboratory [address] [place], [place], [id number] T4 freeOrdered By: Gigi serrano on 06-25-2025 Free T4 [Mass/Vol] 0.60 ng/dL Low 0.76-1.46 [facility] Total proteinOrdered By: Gina Walker on 06-25-2025 Protein [Mass/Vol] 7.1 g/dL 5.9-8.4 [facility] Triglycerides measurementOrd ered By: Gigi Walker on 06-25-2025 Triglyceride [Mass/Vol] 96 mg/dL <199 [facility] Comment on above: The drugs N-Acetylcy steine and Metamizole may falsely depress this assay. Normal range: <150 mg/dLBorderline High: 150-199 mg/dLHigh: 200-499 mg/dLVery High: >500 mg/dL Vitamin D,25 Hydroxyon 06-25 Vitamin D 25-OH 24.0 ng/mL Low 30-100 [facility] Comment on above: Result Comment: Shilpi min D Status Deficiency: <20 ng/mL (50nmol/L) Insufficiency: 20-30 ng/mL (50-75 nmol/L) Sufficiency: 30-100 ng/mL (75-250 nmol/L) Toxicity: >100 ng/mL (>250 nmol/L) Performed By: #### L 500.4100, L500.4050, L100.0100, L506.1001, L506.0400 #### [facility] Laboratory [address] [place], [address] White blood cell (WBC) count Ordered By: Gigi Walker on 06-25-2025 WBC (Bld) [#/Vol] 9.6 10*3/uL 4.4-11.0 [facility] CV VENOUS ARM RTon CV VENOUS ARM RT [address] [address] Patient: MARY JO MALDONADO Phone#: : 1975 Age: 48 Gender: F Pt. Type: ER Account: [id number] Location: 052 Ordering: ARUNA HARDWICK Exam Date: 10/02/2024/11:57 Family Phys: GIGI WALKER Charge Code: 838300 Physician: Daniels Order #: [id number] Dose#: PROCEDURE: VENOUS DOPPLER RT ARM COMPARISON: None. INDICATIONS: ARM PAIN TECHNIQUE: Color duplex Doppler ultrasound evaluation analysis was performed in the usual manner. GABE RICHARDS T [facility] TRACTOR TRAILER MECHANIC RISK FACTORS FOR VENOUS DISEASE: EXAMINATION: RIGHT +Present -Reduced o Absent LEFT SPONT PHASIC AUG REFLUX COMP SPONT PHASIC AUG REFLUX COMP + + + o + JUGULAR + + + o + SUBCL.(prox) + + + o + AXILLARY V + + + o + BRACHIAL V + CEPHALIC V + BASILIC V + + + o + RADIAL V + + + o + ULNAR V SONOGRAPHERS NOTES: FINDINGS: THROMBI: None visible. COMPRESSIBILITY: Normal. OTHER: Negative. CONCLUSION: 1. There is no evidence of superficial or deep vein thrombus. [address] [address] Patient: MARY JO MALDONADO Phone#: : 1975 Age: 48 Gender: F Pt. 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 Medication Given (Toradol) IM 15 mg Wastage: 15 mg wasted. - 11:37 Raul Keane R.N. 11:37 10/02/2024 (NOW x1) Raul Keane R.N. Scanned 1 of 1 [facility] ED NURSES CLINICAL NOTEon ED NURSES CLINICAL NOTE Nurse Narrative Nurse Clinical Narrative [address] [address] [id number] 10/02/2024 Patient: MARY JO MALDONADO Sex: Female : 1975 Age: 48y Disposition: Discharge to Home Disposition Decision Time: 12:26 10/02/2024 Departure Time: 12:36 10/02/2024 TRIAGE Arrived by private vehicle. Historian: patient. ( Pt states she noted about a month ago discomfort in the right shoulder, the discomfort has not improved.). Triage time: 09:05 10/02/2024. Acuity: LEVEL 4. Chief Complaint: INJURY TO RIGHT SHOULDER. SEPSIS SCREEN: NEGATIVE. SIRS criteria negative. No possible sources of infection. -- :10/02/24 CHINO Coleman R.N. 09:17 10/02/24. BP: 143/84 MAP: 104. HR: 78. RR: 14. O2 saturation: 100% Temperature: 97.6 F. Pain level now 3/10. Describes the pain as aching. Physician notified. -- 09:17 10/02/24 EST Theresa Coleman R.N. Measurements: 09:24 10/02/24 Wt: 83.5 kg, Ht/Tavares: 64.0 in, BMI: 31.58 -- 09:24 10/02/24 EST Theresa Coleman R.N. 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 omeprazole 40 mg capsule,delayed release: 80 mg once a day . -- 09:29 10/02/24 EST Theresa Coleman R.N. D3-80/K 10 -- 09:30 10/02/24 EST Theresa Coleman R.N. 1 of 4 Nurse Narrative Allergies: no known drug allergies -- 09:20 10/02/24 EST Theresa Coleman R.N. Problems: Hypothyroidism -- 09:10/02/24 EST Theresa Coleman R.N. 09:05 10/02/24. Preferred pharmacy: [facility]. -- 09:10/02/24 EST Theresa Coleman R.N. ADDITIONAL SURGERIES: Tubal Ligation -- 09:10/02/24 EST Theresa Coleman R.N. Adenoidectomy -- 09:10/02/24 EST Theresa Coleman R.N. Tonsillectomy -- 09:10/02/24 EST Theresa Coleman R.N. right wrist -- 09:21 10/02/24 EST Theresa Coleman R.N. History 09:05 10/02/24. PAST MEDICAL HX: No menstrual periods. SOCIAL HX: Smoker- current status unknown. Occasional vaping. Alcohol use; consumes beer occasionally. The patient has not traveled outside the [place] Infectious disease exposure: No infectious disease exposure. ABUSE ASSESSMENT: The patient answered yes to the question(s) Do you feel safe in your home? and no to the question(s) Are you afraid to go home?. No report of abuse. SELF HARM ASSESSMENT: Self harm assessment was performed. The patient answered no to the question(s) Have you recently felt down, depressed, or hopeless? and Do you have thoughts of harming or killing yourself?. FALL RISK ASSESSMENT: Fall risk assessment completed. No risk factors identified. -- :10/02/24 CHINO Coleman R.N. 2 of 4 Nurse Narrative 09:24 10/02/24. PAST MEDICAL HX: Denies current . -- 09:10/02/24 CHINO Coleman R.N. Interventions 09:05 10/02/24. Identification band on patient. Advanced care plan discussed with patient. Patient does not have advanced directive. -- :10/02/24 CHINO Coleman R.N. PHYSICAL ASSESSMENT 10:10/02/24. GENERAL / NEURO / PSYCH: Alert. Appears in no acute distress. 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 Pt states pain is a 2/10 while at rest but with certain movements pain is a 7-8/10, throbbing aching, and hurts when just lift the covers off her at night and wakes her while sleeping.). EXTREMITIES: Capillary refill is less than 2 seconds in the extremities. Extremity pulses are within normal limits. Extremities exhibit normal ROM. Neuro-vascular status intact to the extremity. Right arm: tenderness. No laceration, puncture wound, foreign body or deformity. No localization. SKIN: Skin intact. Skin is warm and dry. -- 10:06 10/02/24 CHINO Medel R.N. NURSING PROGRESS NOTES 10:25 10/02/24. alarm technician at the patient's bedside (10:25 10/02/2024). -- 10:42 10/02/24 CHINO Medel R.N. 11:23 10/02/24. Care transferred and report received (from Vane STEVENS). -- 11:38 10/02/24 CHINO Keane R.N. 11:37 10/02/24. KetorOLAC (Toradol) IM 15 mg given. Medication Wastage: 15 mg wasted. -- 11:37 10/02/24 CHINO Keane R.N. 11:54 10/02/24. ( validation technician at bedside with DVT study.). -- 11:54 10/02/24 EST Raul Keane R.N. DISPOSITION / DISCHARGE Departure time: 12:36 10/02/2024. Condition at departure: improved. No learning barriers present. Discharge instructions provided and reviewed with the patient. The patient was discharged by the physician. The patient was discharged home. The patient left ambulatory and via private vehicle. Patient driving. -- 12:38 10/02/24 EST Raul Keane R.N. 3 of 4 Nurse Narrative (Electronically signed by Raul Keane R.N. 10/02/24 13:50:15 EST) Generated by [facility] 4 of (more content not included)... Normal [facility] ED ORDER SHEET (CPOE ONLY)on 10-02-2024 ED ORDER SHEET (CPOE ONLY) Order Sheet Order Sheet [address] [place] [address] [id number] 10/02/2024 Patient: MARY JO MALDONADO Sex: Female : 1975 Age: 48y MEASUREMENTS: Wt: 83.5 kg, Ht/Tavares: 64.0 in, BMI: 31.58 ALLERGIES: No known drug allergies MEDICATION/IV/DRIP/F LUID ORDERS Order Description Priority Entered Acknowledged Completed KetorOLAC (Toradol) IM15 mg 11:17 10/02/2024 11:37 (NOW x1) Aruna Hardwick D.O. 10/02/2024 Raul Keane R.N. LAB ORDERS Order Description Priority Entered Acknowledged Collected Completed DIAGNOSTIC STUDY ORDERS Order Description Priority Entered Acknowledged Completed Humerus R 2V Stat Stat 10:12 10/02/2024 10:42 Aruna Hardwick D.O. 10/02/2024 Vane Medel R.N. Reason for Study: Pain CV Upper Ext RT Venous Stat 11:10 10/02/2024 11:27 Doppler Stat Aruna Hardwick D.O. 10/02/2024 Vane Medel, 1 of 2 Order Sheet Hosea Reason for Study: pain,limb STAFF ORDERS Order Description Priority Entered Acknowledged Collected Completed [Electronically signed by Aruna Hardwick D.O. (10/02/2024 12:34 EST)] 2 of 2 Normal [facility] ED PHYSICIAN CLINICAL REPORT on 10-02-2024 ED PHYSICIAN CLINICAL REPORT Narrative Physician Clinical Narrative [facility] [address] [place] [phone] 10/02/2024 Patient: MARY JO MALDONADO Sex: Female : 1975 Age: 48y Measurements Wt: 83.5 kg, Ht/Tavares: 64.0 in, BMI: 31.58 Initial Vital Sign Measured Time BP MAP HR RR O2Sat ETCO2 Temp Pain GCS RTS 09:17 10/02/2024 143/84 104 78 14 100% 97.6 F 3 Time Seen: 09:48 10/02/2024. Arrived- By private vehicle. Historian- patient. HISTORY OF PRESENT ILLNESS Chief Complaint: UPPER EXTREMITY PAIN. This started 2 months and is still present. Symptoms located in the area of the right arm. Patient notes an injury. Similar symptoms previously. None. Recent medical care: Not recently seen/assessed. REVIEW OF SYSTEMS : No difficulty with urination, urinary frequency or hematuria. CONSTITUTIONAL: No fever or chills. THROAT: No sore throat. PSYCHIATRIC: No depression. RESPIRATORY: No cough. SKIN: No skin rash. ENDO/HEME/LYMPH: No enlarged lymph nodes. MUSCULOSKELETAL: No neck pain. GI: No abdominal pain, nausea or diarrhea. NEUROLOGICAL: No headache. 1 of 6 Narrative PAST HISTORY Hypothyroidism Surgeries: Adenoidectomy right wrist Tonsillectomy Tubal Ligation Medications: D3-80/K 10 [employer] OFF[employer]ER Thyroid 30 mg tablet omeprazole 40 mg capsule,delayed release: 80 mg once a day . Allergies: no known drug allergies SOCIAL HISTORY Unknown if ever smoked. No alcohol use or drug use. ADDITIONAL NOTES The nursing notes have been reviewed. PHYSICAL EXAM Vital Signs: Have been reviewed. Appearance: No acute distress. Eyes: Pupils equal, round and reactive to light. Eyes normal inspection. Neck: Normal inspection. CVS: Normal heart rate and rhythm. Respiratory: No respiratory distress. Skin: Skin warm and dry. Normal skin color. Normal skin turgor. Extremities: Upper extremities exhibit normal ROM. Right arm. Neurovascular intact distally. (Tenderness noted over the dorsal aspect of the mid humerus over the triceps. Pain is elicited with extension Of the forearm 2 of 6 Narrative with resistance. There is no pain over the biceps. No bruising or masses.). Neuro: Oriented X 3. No motor deficit. No sensory deficit. LABS, X-RAYS, AND EKG Diagnostic Study Tests: CV VENOUS ARM RT Final EXAM Date: 10/02/2024 12:13:00 EST MsgRcvd: 10/02/2024 12:[address] [address] Patient: MARY JO MALDONADO Phone#: : 1975 Age: 48 Gender: F Pt. Type: ER Account: [id number] Location: [facility] Ordering: ARUNA HARDWICK Exam Date: 10/02/2024/11:57 Family Phys: GIGI WALKER Charge Code: [id number] Physician: Daniels Order #: [id number] Dose#: PROCEDURE: VENOUS DOPPLER RT ARM COMPARISON: None. INDICATIONS: ARM PAIN TECHNIQUE: Color duplex Doppler ultrasound evaluation analysis was performed in the usual manner. GABE RICHARDS T [facility] TRACTOR TRAILER MECHANIC RISK FACTORS FOR VENOUS DISEASE: EXAMINATION: RIGHT +Present -Reduced o Absent LEFT SPONT PHASIC AUG REFLUX COMP SPONT PHASIC AUG REFLUX COMP + + + o + JUGULAR + + + o + SUBCL.(prox) + + + o + AXILLARY V + + + o + BRACHIAL V + CEPHALIC V + BASILIC V + + + o + RADIAL V 3 of 6 Narrative + + + o + ULNAR V SONOGRAPHERS NOTES: FINDINGS: THROMBI: None visible. COMPRESSIBILITY: Normal. OTHER: Negative. CONCLUSION: 1. There is no evidence of superficial or deep vein thrombus. [address] [address] Patient: MARY JO MALDONADO Phone#: : 1975 Age: 48 Gender: F Pt. Type: ER Account: [id number] Location: 2 Ordering: ARUNA HARDWICK Exam Date: 10/02/2024/11:57 Family Phys: GIGI WALKER Charge Code: [id number] Physician: Daniels Order #: [id number] Dose#: Dictated by: Sangeetha Pizarro MD on 10/02/2024 at 12:22 Approved by: Sangeetha Pizarro MD on 10/02/2024 at 12:23 HUMERUS RT Final EXAM Date: 10/02/2024 10:49:00 EST MsgRcvd: 10/02/2024 11:22 [place] [address] Patient: MARY JO MALDONADO Phone#: : 1975 Age: 48 Gender: F Pt. Type: ER Account: [id number] Location: [facility] Ordering: ARUNA HARDWICK Exam Date: 10/02/2024/10:22 Family Phys: GIGI WALKER Charge Code: [id number] Physician: Daniels Order #: [id number] Dose#: PROCEDURE: X-RAY HUMERUS RT MIN 2 VIEWS COMPARISON: None. 4 of 6 Narrative INDICATIONS: Pain. FINDINGS: BONES: Normal. No significant arthropathy or acute abnormality. SOFT TISSUES: Negative. No visible soft tissue swelling. EFFUSION: None visible. OTHER: Negative. CONCLUSION: No acute disease. Di (more content not included)... Normal [facility] [address] [id number] 10/02/2024 Patient: MARY JO MALDONADO Sex: Female : 1975 Age: 48y Item Facility Professional Category Description Code Code Quantity Fee Total Nurse/E/M EMERGENCY 486537 1 $0.00 $0.00 DEPARTMENT VISIT HIGH/URGENT SEVERITY (72969-91) Nurse/IV/IM/Infusion s IM/SQ (30979) 276870 1 $0.00 $0.00 Grand Total $0.00 Providers Aruna Hardwick D.O. Chief Complaint UPPER EXTREMITY PAIN. Principal Diagnosis Muscle strain of the left triceps. 1 of 2 Superbill ICD-10 Codes S46.312A: Strain of muscle, fascia and tendon of triceps, left arm, initial encounter 2 of 2 Normal [facility] ED VISIT SUMMARYon ED VISIT SUMMARY Visit Overview Visit Overview [place] [address] [facility] 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 1 of 3 Visit Overview PAST MEDICAL HISTORY / PROBLEMS Hypothyroidism No menstrual periods PAST SURGICAL HISTORY Adenoidectomy right wrist Tonsillectomy Tubal Ligation SOCIAL HISTORY Smoking status: Yes Alcohol use: Yes ED COURSE MEDICATIONS GIVEN IN EMERGENCY DEPARTMENT 11:37 10/02/24 KetorOLAC (Toradol) IM 15 mg IV SITE INFORMATION INTAKE OUTPUT REASSESMENT (most recent) 10:01 10/02/24. GENERAL / NEURO / PSYCH: Alert. Appears in no acute distress. 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 Pt states pain is a 2/10 while at rest but with certain movements pain is a 7-8/10, throbbing aching, and hurts when just lift the covers off her at night and wakes her while sleeping.). EXTREMITIES: Capillary refill is less than 2 seconds in the extremities. Extremity pulses are within normal limits. Extremities exhibit normal ROM. Neuro-vascular status intact to the extremity. Right arm: tenderness. No laceration, puncture wound, foreign body or deformity. No localization. SKIN: Skin intact. Skin is warm and dry. VITAL SIGNS 2 of 3 Visit Overview First Vitals Last Vitals Temp 09:17 10/02/24 97.6 F Temp 09:17 10/02/24 97.6 F BP 09:17 10/02/24 143/84 BP 09:17 10/02/24 143/84 HR 09:17 10/02/24 78 HR 09:17 10/02/24 78 RR 09:17 10/02/24 14 RR 09:17 10/02/24 14 O2 Sat 09:10/02/24 100% O2 Sat 09:10/02/24 100% Pain 09:17 10/02/24 3 Pain 09:10/02/24 3 ETCO2 09:10/02/24 ETCO2 09:17 10/02/24 GCS 09:10/02/24 GCS 09:17 10/02/24 RTS 09:17 10/02/24 RTS 09:17 10/02/24 PROCEDURES NURSING INTERVENTIONS LABS / STUDIES LABS / STUDIES ORDERED CV Upper Ext RT Venous Doppler Humerus R 2V CLINICAL IMPRESSION MUSCLE STRAIN OF THE LEFT TRICEPS 3 of 3 Normal [facility] ED VITALS FLOW SHEETon 10-02 ED VITALS FLOW SHEET Vitals Vital Sign Flow Sheet [address] [address] [id number] 10/02/2024 Patient: MARY JO MALDONADO Sex: Female : 1975 Age: 48y Measurements Wt: 83.5 kg, Ht/Tavares: 64.0 in, BMI: 31.58 Measured Time BP MAP HR RR O2Sat ETCO2 Temp Pain GCS RTS 09:17 10/02/2024 143/84 104 78 14 100% 97.6 F 3 1 of 1 Normal [facility] HUMERUS RTon 10-02-2024 HUMERUS RT [address] [address] Patient: MARY JO MALDONADO. Phone#: : 1975 Age: 48 Gender: F Pt. Type: ER Account: [id number] Location: 052 Ordering: ARUNA HARDWICK Exam Date: 10/02/2024/10:22 Family Phys: GIGI WALKER Charge Code: 821320 Physician: Daniels Order #: [id number] Dose#: PROCEDURE: X-RAY HUMERUS RT MIN 2 VIEWS COMPARISON: None. INDICATIONS: Pain. FINDINGS: BONES: Normal. No significant arthropathy or acute abnormality. SOFT TISSUES: Negative. No visible soft tissue swelling. EFFUSION: None visible. OTHER: Negative. CONCLUSION: No acute disease. Dictated by: Sangeetha Pizarro MD on 10/02/2024 at 11:18 Approved by: Sangeetha Pizarro MD on 10/02/2024 at 11:18 [facility] 10-20-2023 [facility] Telephone (UCTR) MARY JO MALDONADO ([id number]) 1975 F Date Time Provider Department 10/20/23 CHAUNCEY HOUSER [facility] During your visit today, we recorded the following information about you: Chauncey Houser PA 10/20/2023 8:58 AM Signed Please call patient and let her know that her COVID test came back positive. Isolate for 5 days. Mask for 5 more days. Supportive measures as discussed at visit. Brianna Santana 10/20/2023 9:55 AM Signed Patient given results and verbalized understanding of instructions given. Brianna Santana Allergies As of Date: 10/20/2023 Noted Allergy Reaction AMOXICILLIN 10/17/2001 Comments: yeast infections TRAMADOL 09/09/2014 8 - GI Upset TYLENOL #3 (CODEINE) 09/09/2014 8 - GI Upset VICODIN (HYDROCODONE-ACETAMI NOPHE*09/09/2014 8 - GI Upset Date Reviewed: 10/19/2023 Reviewed by: Mesha Neri APRN.LASER SPECIALIST - Fully Assessed Reason for Visit: Results [95] Prescriptions as of 10/20/2023 - levothyroxine (SYNTHROID) 88 mcg tablet Take 1 tablet by mouth once daily. - citalopram (CELEXA) 20 mg tablet Take 20 mg by mouth once daily. - LORazepam (ATIVAN) 0.5 mg Take 0.5-1 mg by mouth twice daily as needed. - omeprazole (PRILOSEC) 20 mg capsule 40 mg. - ACETAMINOPHEN (TYLENOL ORAL) Take by mouth. Problem List As Of Date 10/20/2023 Noted Resolved Migraine without aura, intractable, without sta*08/24/2018 Anxiety [F41.9] 06/17/2019 Gastroesophageal reflux disease without esophag*06/17/2019 Former smoker [Z87.891] 06/17/2019 Class 1 obesity due to excess calories without *06/17/2019 Closed displaced fracture of neck of fifth meta*06/17/2019 Other specified hypothyroidism [E03.8] 11/11/2019 Hypokalemia [E87.6] 11/11/2019 Finger stiffness, right [M25.641] 12/30/2019 Encounter Status:Closed by BRIANNA SANTANA on 10/20/23 [facility] CNOVon 10-19-2023 CNOV Office Visit (UCWSTR) MARY JO MALDONADO ([id number]) 1975 F Date Time Provider Department 10/19/23 5:45 PM MESHA NERI WS During your visit today, we recorded the following information about you: Temperature Pulse Respiration Blood pressure 98.5 degrees 90/minute 21/minute 130/90 Weight 86.2 kg Mesha Neri APRN.LASER SPECIALIST 10/19/2023 6:10 PM Signed Subjective The history is provided by the patient. No speech language pathology assistant was used. HPI Mary Jo Maldonado is a 47 year old female who presents today for CC of needs a PCR covid test for work. She had two rapid positive tests this week. She is having cough, nasal congestion, ear pressure, and runny nose Symptoms started Monday evening. She denies any fever, sob, nausea, vomiting diarrhea. Using dayquil and nyquil with short term relief. BP 130/90 Pulse 90 Temp 36.9 ?C (98.5 ?F) Resp 21 Wt 86.2 kg (190 lb) LMP 12/30/2016 SpO2 97% BMI 32.61 kg/m? Social History Tobacco Use Smoking status: Every Day Packs/day: .05 Types: Cigarettes Last attempt to quit: 02/11/2019 Years since quittin.6 Smokeless tobacco: Never Tobacco comments: vapes Vaping Use Vaping Use: current everyday user Substance Use Topics Alcohol use: Yes Comment: occasional Drug use: Never PAST MEDICAL HISTORY Diagnosis Date Anxiety Hypothyroidism Migraine without aura, intractable, without status migrainosus 08/24/2018 I have confirmed and edited as necessary, the [facility] Review of Systems Constitutional: Negative for chills and fever. HENT: Negative for congestion, ear pain, sinus pain and sore throat. Respiratory: Positive for cough. Negative for sputum production, shortness of breath and wheezing. Cardiovascular: Negative for chest pain. Musculoskeletal: Negative for myalgias. Neurological: Negative for headaches. Objective Physical Exam Vitals and nursing note reviewed. HENT: Head: Normocephalic and atraumatic. Right Ear: Tympanic membrane, ear canal and external ear normal. Left Ear: Tympanic membrane, ear canal and external ear normal. Nose: Mucosal edema, congestion and rhinorrhea present. Right Sinus: No maxillary sinus tenderness or frontal sinus tenderness. Left Sinus: No maxillary sinus tenderness or frontal sinus tenderness. Mouth/Throat: Pharynx: Uvula midline. Posterior oropharyngeal erythema present. No oropharyngeal exudate. Cardiovascular: Rate and Rhythm: Normal rate and regular rhythm. Heart sounds: Normal heart sounds. Pulmonary: Effort: Pulmonary effort is normal. Breath sounds: Normal breath sounds. Lymphadenopathy: Head: Right side of head: No submental, submandibular or tonsillar adenopathy. Left side of head: No submental, submandibular or tonsillar adenopathy. Cervical: No cervical adenopathy. Skin: General: Skin is warm and dry. Neurological: Mental Status: She is alert. Psychiatric: Mood and Affect: Affect normal. ASSESSMENT/PLAN: 1. URI with cough and congestion - ICD9: 465.9, ICD10: J06.9 (primary diagnosis) - Discussed viral etiology and rationale for treatment. - Symptomatic treatment with prn analgesia - Supportive care with fluids and rest 2. Positive self-administered antigen test for COVID-19 - ICD9: 079.89, ICD10: U07.1 PCR done, guidelines discussed. - COVID NAAT, UPPER RESPIRATORY, ROUTINE Diagnosis and treatment plan were discussed and questions were answered to the patient's satisfaction. Pt acknowledged understanding of concepts and follow up plan. Specific signs and symptoms that would indicate the need for higher level of care were discussed in detail warranting prompt ER evaluation. MEGAN Grayson Tonya, APRN.CNP 10/19/2023 6:10 PM Signed covid test ordered You will be notified in 12-24 hours, results available on MyChart Rest, increase water intake Motrin or Tylenol as needed for fever or pain. Salt water gargles, chloraseptic spray or lozenges as needed for sore throat. Warm beverages, honey. Nasal saline spray as needed Cool mist humidifier at night Tylenol (generic acetaminophen) 500 mg-2 tabs every 8 hrs. as needed for fever and aches Ibuprofen 600 mg (3-200mg tablets) every 6 hours -Sudafed (generic is fine), behind the counter, 2x30 mg tabs twice daily as needed for congestion -Mucinex (generic is fine) Guaifenesin 1200 mg twice daily to help with cough and to thin out mucus * Seek medical care immediately, call 911, go to ER if you have chest pain, difficulty breathing, shortness of breath, inability to swallow. Follow the CDC guidelines for isolation for covid positive: 1. Everyone, regardless of vaccination status, should stay home for 5 days. 2. If you have no symptoms or your symptoms are resolving after 5 days, you can leave your house. 3. Continue to wear a mask around others for 5 additional days. If you have a fe (more content not included)... Normal [facility] SARS-CoV-2 RNA Resp Ql DIANNA+p harmony 10-19-2023 SARS-CoV-2 (COVID-19) RNA DIANNA+probe Ql (Resp) COVID 19 RESULT: Detected The method used is RT-PCR or an equivalent NAAT method. Reference Range (the expected result in uninfected individuals): Not detected Normal [facility] Comment on above: Performed By: #### [id number] #### [facility] CLIA [id number] [address] [place] [address] [place] XR ELBOW MINIMUM 3 VIEWS RIG HTon 05-24-2023 XR ELBOW MINIMUM 3 VIEWS RIGHT ORIGINAL EXAMINATION: THREE XRAY VIEWS OF THE RIGHT ELBOW 05/23/2023 10:30 pm COMPARISON: Same day forearm radiograph. HISTORY: ORDERING SYSTEM PROVIDED HISTORY: Reason for Exam: pain FINDINGS: No acute fracture or dislocation. The joint spaces are maintained. No joint effusion. No radiopaque retained foreign body or appreciable soft tissue swelling. IMPRESSION: No acute fracture or dislocation. I have personally reviewed the images of this examination and agree with the resident's findings and interpretation. Interpreted by: Dutch Santos Preliminary Report By: Artis Bernal Electronically signed By Dutch Santos Dictated Date: 05/23/2023 10:46:21 PM Prelim Date: 05/23/2023 10:47:20 PM Sign Date: 05/23/2023 11:02:40 PM Ordering Provider: GERSON Hodge [facility] ([place]) XR FOREARM 2 VIEWS RIGHTon 0 05-24-2023 XR FOREARM 2 VIEWS RIGHT ORIGINAL EXAMINATION: TWO XRAY VIEWS OF THE RIGHT FOREARM 05/23/2023 10:30 pm COMPARISON: None. HISTORY: ORDERING SYSTEM PROVIDED HISTORY: Reason for Exam: pain FINDINGS: No acute fracture or dislocation. The joint spaces are maintained. No joint effusion. No radiopaque retained foreign body or appreciable soft tissue swelling. IMPRESSION: No acute fracture or dislocation. I have personally reviewed the images of this examination and agree with the resident's findings and interpretation. Interpreted by: Dutch Santos Preliminary Report By: Artis Bernal Electronically signed By Dutch Santos Dictated Date: 05/23/2023 10:45:06 PM Prelim Date: 05/23/2023 10:46:11 PM Sign Date: 05/23/2023 11:02:14 PM Ordering Provider: GERSON ROGERS [facility] ([place]) XR SHOULDER MINIMUM 2 VIEWS RIGHTon 05-24-2023 XR SHOULDER MINIMUM 2 VIEWS RIGHT ORIGINAL EXAMINATION: TWO XRAY VIEWS OF THE RIGHT SHOULDER 05/23/2023 10:32 pm COMPARISON: None. HISTORY: ORDERING SYSTEM PROVIDED HISTORY: Reason for Exam: pain FINDINGS: No acute fracture or dislocation. The coracoclavicular distance is within normal limits. No radiopaque retained foreign body or appreciable soft tissue swelling. The included thoracic structures are unremarkable. IMPRESSION: No acute fracture or dislocation. I have personally reviewed the images of this examination and agree with the resident's findings and interpretation. Interpreted by: Dutch Santos Preliminary Report By: Artis Bernal Electronically signed By Dutch Santos Dictated Date: 05/23/2023 10:47:27 PM Prelim Date: 05/23/2023 10:48:30 PM Sign Date: 05/23/2023 11:03:13 PM Ordering Provider: GERSON ROGERS [facility] ([place]) CNOVon 02-14-2023 CNOV Office Visit (UCWSTR) MARY JO MALDONADO ([id number]) 1975 F Date Time Provider Department 02/14/23 2:15 PM SHARON DE PAZ [facility] During your visit today, we recorded the following information about you: Temperature Pulse Respiration Blood pressure 98.3 degrees 81/minute 16/minute 112/78 Weight 85.5 kg Sharon De Paz APRN.HALIE 02/14/2023 2:48 PM Signed Subjective Came in with complaints of itching rash on bilateral lower legs. Patient says she had it about 10 days. Patient says about 2 weeks ago she was clearing trees from her yard. Patient's never had poison crystal. Patient denies any other symptoms. The history is provided by the patient. No speech language pathology assistant was used. Rash Review of Systems Skin: Positive for itching and rash. Objective Physical Exam Constitutional: Appearance: Normal appearance. Pulmonary: Effort: Pulmonary effort is normal. Skin: Comments: Patient does have contact dermatitis located in the areas marked above that appear to be vesicular in nature and consistent with contact dermatitis of poison crystal. Neurological: Mental Status: She is alert. PAST MEDICAL HISTORY Diagnosis Date Anxiety Hypothyroidism Migraine without aura, intractable, without status migrainosus 08/24/2018 PAST SURGICAL HISTORY Procedure Laterality Date CAPSULECTOMY/CAPSULO CASIMIRO IPHAL JOINT EACH Right 11/26/2019 Right 5th finger capsulotomy, MCP joint tenolysis of extensor tendons, manipulation under anesthesia PIP joint OPEN TX METACARPAL FRACTURE SINGLE EA BONE Right 06/19/2019 ORIF Right 5th MC PAST SURGICAL HISTORY OF 1977 tonsils AND adenoids PAST SURGICAL HISTORY OF 2005 tubes tied PAST SURGICAL HISTORY OF 2005 right wrist surgery ALLERGIES Amoxicillin, Tramadol, Tylenol #3 [Codeine], and Vicodin [Hydrocodone-Acetami nophen] MEDICATIONS levothyroxine (SYNTHROID) 88 mcg tablet Take 1 tablet by mouth once daily. citalopram (CELEXA) 20 mg tablet Take 20 mg by mouth once daily. LORazepam (ATIVAN) 0.5 mg Take 0.5-1 mg by mouth twice daily as needed. omeprazole (PRILOSEC) 20 mg capsule 40 mg. ACETAMINOPHEN (TYLENOL ORAL) Take by mouth. predniSONE (DELTASONE) 10 mg tablet Take 4 tabs daily for 3 days, then 2 tabs daily for 3 days, then 1 tab daily for 3 days with food. FAMILY HISTORY Problem Relation Age of Onset Hypertension Mother Thyroid Mother Diabetes Father Hypertension Father Cancer Maternal Grandfather Cancer Paternal Grandmother Social History Tobacco Use Smoking status: Every Day Packs/day: 0.05 Types: Cigarettes Last attempt to quit: 02/11/2019 Years since quittin.0 Smokeless tobacco: Never Tobacco comments: vapes Vaping Use Vaping Use: current everyday user Substance Use Topics Alcohol use: Yes Comment: occasional Drug use: Never ASSESSMENT/PLAN: 1. Allergic contact dermatitis due to plants, except food - ICD9: 692.6, ICD10: L23.7 - PREDNISONE 10 MG TABLET Patient was educated about proper use of medication supportive therapies. Patient will follow-up if signs and symptoms seem to getting worse not better. Patient was okay with this care plan. Sharon De Paz APRN.LASER SPECIALIST Allergies As of Date: 02/14/2023 Noted Allergy Reaction AMOXICILLIN 10/17/2001 Comments: yeast infections TRAMADOL 09/09/2014 8 - GI Upset TYLENOL #3 (CODEINE) 09/09/2014 8 - GI Upset VICODIN (HYDROCODONE-ACETAMI NOPHE*09/09/2014 8 - GI Upset Date Reviewed: 02/14/2023 Reviewed by: Mckenzie Hdez LPN - Fully Assessed Reason for Visit: Rash [1087] Cmt: Body rash x 10 days Primary Visit Diagnosis:Allergic contact dermatitis due to plants, except food [L23.7] Order(s):predniSONE (DELTASONE) 10 mg tabletTake 4 tabs daily for 3 days, then 2 tabs daily for 3 days, then 1 tab daily for 3 days with food.Disp: 21 tabletRfl: 0 Prescriptions as of 02/14/2023 - predniSONE (DELTASONE) 10 mg tablet Take 4 tabs daily for 3 days, then 2 tabs daily for 3 days, then 1 tab daily for 3 days with food. - levothyroxine (SYNTHROID) 88 mcg tablet Take 1 tablet by mouth once daily. - citalopram (CELEXA) 20 mg tablet Take 20 mg by mouth once daily. - LORazepam (ATIVAN) 0.5 mg Take 0.5-1 mg by mouth twice daily as needed. - omeprazole (PRILOSEC) 20 mg capsule 40 mg. - ACETAMINOPHEN (TYLENOL ORAL) Take by mouth. Problem List As Of Date 02/14/2023 Noted Resolved Migraine without aura, intractable, without sta*08/24/2018 Anxiety [F41.9] 06/17/2019 Gastroesophageal reflux disease without esophag*06/17/2019 Former smoker [Z87.891] 06/17/2019 Class 1 obesity due to excess calories without *06/17/2019 Closed displaced fracture of neck of fifth meta*06/17/2019 Other specified hypothyroidism [E03.8] 11/11/2019 Hypokalemia [E87.6] 11/11/2019 Finger stiffness, right [M25.641] 12/30/2019 Prescriptions ordered this encounter Disp Refills Start En (more content not included)... Normal [facility] XR THORACIC LIMITED 2V AP/LA Ton 07-14-2022 [facility] XR Thoracic spine AP and Lat eralon 07-14-2022 IMPRESSION: Thoracic spine mild degenerative changes. Hazardous Waste Technician: YAMIL Transcribe Date/Time: Jul 14 2022 2:29P Dictated by : ESTEPHANIE COLLADO MD This examination was interpreted and the report reviewed and electronically signed by: ESTEPHANIE COLLADO MD on Jul 14 2022 2:30PM [facility] DIVISION OF RADIOLOGY * * *Final Report* * * DATE OF EXAM: Jul 14 2022 1:37PM WOX [id number] - XR THORACIC 2V AP/LAT / PROCEDURE REASON: Upper back pain * * * * Physician Interpretation * * * * EXAM TITLE: XR THORACIC 2V AP/LAT EXAM DATE/TIME: 07/14/2022 1:37 PM COMPARISON: None. CLINICAL INDICATION/HISTORY: Upper back pain TECHNIQUE: AP, swimmer's and lateral views of the thoracic spine are presented FINDINGS: No fractures or subluxations are noted. The disc spaces are well preserved. There is mild osteophyte formation. There is no paraspinal mass or bony destructive process. DIVISION OF RADIOLOGY Provider, [facility] - 07/14/2022 * * *Final Report* * * DATE OF EXAM: Jul 14 2022 1:37PM WOX [id number] - XR THORACIC 2V AP/LAT / PROCEDURE REASON: Upper back pain * * * * Physician Interpretation * * * * EXAM TITLE: XR THORACIC 2V AP/LAT EXAM DATE/TIME: 07/14/2022 1:37 PM COMPARISON: None. CLINICAL INDICATION/HISTORY: Upper back pain TECHNIQUE: AP, swimmer's and lateral views of the thoracic spine are presented FINDINGS: No fractures or subluxations are noted. The disc spaces are well preserved. There is mild osteophyte formation. There is no paraspinal mass or bony destructive process. IMPRESSION IMPRESSION: Thoracic spine mild degenerative changes. Hazardous Waste Technician: YAMIL Transcribe Date/Time: Jul 14 2022 2:29P Dictated by : ESTEPHANIE COLLADO MD This examination was interpreted and the report reviewed and electronically signed by: ESTEPHANIE COLLADO MD on Jul 14 2022 2:30PM [facility]ative[facility] XR Thoracic spine AP and Lat eralOrdered By: Cc Provider on 07-14-2022 [facility] XR Foot - left AP and Latera l and obliqueon 11-23-2021 IMPRESSION: No fracture. Hazardous Waste Technician: PSCB Transcribe Date/Time: Nov 23 2021 7:06P Dictated by : SELENE OLMOS MD This examination was interpreted and the report reviewed and electronically signed by: SELENE OLMOS MD on Nov 23 2021 7:09PM [facility] DIVISION OF RADIOLOGY * * *Final Report* * * DATE OF EXAM: Nov 23 2021 7:04PM WOX [id number] - XR FOOT 3V AP/LAT/OBL LT / PROCEDURE REASON: Foot injury, left, initial encounter * * * * Physician Interpretation * * * * EXAMINATION: XR FOOT 3V AP/LAT/OBL LT HISTORY: vacuum shafting cleaner fell on midfoot dorsal side on top of the foot, apin across top of midfoot. Foot injury, left, initial encounter. TECHNIQUE: XR FOOT 3V AP/LAT/OBL LT Laterality: LEFT Number of different views (projections): 3 M: XB_1 COMPARISON: There are no prior relevant examinations available for comparison within the [facility]. RESULT: Standing frontal radiographs of the bilateral feet with oblique and lateral weightbearing views of the left foot show no acute osseous, articular or soft tissue process. Joint spaces are preserved. DIVISION OF RADIOLOGY Provider, [facility] - 11/23/2021 * * *Final Report* * * DATE OF EXAM: Nov 23 2021 7:04PM WOX [id number] - XR FOOT 3V AP/LAT/OBL LT / PROCEDURE REASON: Foot injury, left, initial encounter * * * * Physician Interpretation * * * * EXAMINATION: XR FOOT 3V AP/LAT/OBL LT HISTORY: vacuum shafting cleaner fell on midfoot dorsal side on top of the foot, apin across top of midfoot. Foot injury, left, initial encounter. TECHNIQUE: XR FOOT 3V AP/LAT/OBL LT Laterality: LEFT Number of different views (projections): 3 M: XB_1 COMPARISON: There are no prior relevant examinations available for comparison within the [facility]. RESULT: Standing frontal radiographs of the bilateral feet with oblique and lateral weightbearing views of the left foot show no acute osseous, articular or soft tissue process. Joint spaces are preserved. IMPRESSION IMPRESSION: No fracture. Hazardous Waste Technician: YAMIL Transcribe Date/Time: Nov 23 2021 7:06P Dictated by : SELENE OLMOS MD This examination was interpreted and the report reviewed and electronically signed by: SELENE OLMOS MD on Nov 23 2021 7:09PM EST [facility] Radiology Study observation (narrative) [facility] XR Foot - left AP and Latera l and obliqueOrdered By: Ccf Provider on 11-23-2021 [facility] XR Hand - right PA and Later al and Obliqueon 09-28-2020 IMPRESSION: Postsurgical changes without interval complication. No acute osseous or articular process noted. Hazardous Waste Technician: YAMIL Transcribe Date/Time: Sep 28 2020 6:16P Dictated by : SELENE OLMOS MD This examination was interpreted and the report reviewed and electronically signed by: SELENE OLMOS MD on Sep 28 2020 6:18PM EST DIVISION OF RADIOLOGY * * *Final Report* * * DATE OF EXAM: Sep 28 2020 6:07PM WOX [id number] - XR HAND 3V PA/LAT/OBL RT / PROCEDURE REASON: Hand pain, right * * * * Physician Interpretation * * * * EXAMINATION: XR HAND 3V PA/LAT/OBL RT HISTORY: Cadet right hand lump in the area of the index and middle finger MCP joints x several days. No known injury. Pt has a old injury to the right small finger resulting in chronic flexion. TECHNIQUE: XR HAND 3V PA/LAT/OBL RT Laterality: RIGHT Number of different views (projections): 3 M: XB_1 COMPARISON: Comparison is made to prior right hand dated 09/19/2019, 27 June 2019 and May 2019 RESULT: AP, oblique and lateral radiographs of the right hand show no acute osseous, articular or soft tissue process. Remote surgical pinning of the right fifth metacarpal as well as unchanged persistent posttraumatic flexion of the right fifth PIP is unchanged. Visualized surgical hardware is intact and there is no radiographic evidence for loosening or superimposed fracture. DIVISION OF RADIOLOGY Provider, [facility] - 09/28/2020 * * *Final Report* * * DATE OF EXAM: Sep 28 2020 6:07PM WOX [id number] - XR HAND 3V PA/LAT/OBL RT / PROCEDURE REASON: Hand pain, right * * * * Physician Interpretation * * * * EXAMINATION: XR HAND 3V PA/LAT/OBL RT HISTORY: Cadet right hand lump in the area of the index and middle finger MCP joints x several days. No known injury. Pt has a old injury to the right small finger resulting in chronic flexion. TECHNIQUE: XR HAND 3V PA/LAT/OBL RT Laterality: RIGHT Number of different views (projections): 3 M: XB_1 COMPARISON: Comparison is made to prior right hand dated 09/19/2019, 27 June 2019 and May 2019 RESULT: AP, oblique and lateral radiographs of the right hand show no acute osseous, articular or soft tissue process. Remote surgical pinning of the right fifth metacarpal as well as unchanged persistent posttraumatic flexion of the right fifth PIP is unchanged. Visualized surgical hardware is intact and there is no radiographic evidence for loosening or superimposed fracture. IMPRESSION IMPRESSION: Postsurgical changes without interval complication. No acute osseous or articular process noted. Hazardous Waste Technician: PSCB Transcribe Date/Time: Sep 28 2020 6:16P Dictated by : SELENE OLMOS MD This examination was interpreted and the report reviewed and electronically signed by: SELENE OLMOS MD on Sep 28 2020 6:18PM [facility] Radiology Study observation (narrative) Erwin Porter XR Hand - right PA and Later al and ObliqueOrdered By: Ccf Provider on 09-28-2020 [facility] CNTHERAPYon 01-16-2020 CNTHERAPY OT/PT/Speech Visit ([facility]) MARY JO MALDONADO ([id number]) 1975 F Date Time Provider Department 01/16/20 11:45 AM ROSANNA JEROME (OT) [facility] Date Time Provider Department Center 01/16/2020 11:45 AM [id number] JEROME *[facility] Reason for Visit: OT Discharge [750] Reason For Visit History Recorded Primary Visit Diagnosis:Pain of right hand [M79.641] Other Visit Diagnoses:Finger stiffness, right [M25.641] Closed displaced fracture of neck of fifth metacarpal bone of right hand, sequela [S62.336S] Allergies As of Date: 01/16/2020 Noted Allergy Reaction AMOXICILLIN 10/17/2001 Comments: yeast infections TRAMADOL 09/09/2014 8 - GI Upset TYLENOL #3 (CODEINE) 09/09/2014 8 - GI Upset VICODIN (HYDROCODONE-ACETAMI NOPHE*09/09/2014 8 - GI Upset Date Reviewed: 01/13/2020 Reviewed by: Jose D Duran - Fully Assessed Prescriptions as of 01/16/2020 Sig: ARMOUR THYROID 60 MG TABLET Take 60 mg by mouth once lilia* OMEPRAZOLE 20 MG TABLET,DELAY* Take 20 mg by mouth once lilia* ONDANSETRON HCL 4 MG TABLET Take 1 tablet by mouth every * LEVOTHYROXINE 125 MCG TABLET Take 1 tablet by mouth once d* TYLENOL ORAL Take by mouth. IBUPROFEN ORAL Take by mouth. Progress Notes: Rosanna Jerome OT/Jonah 04/03/2020 2:27 PM Addendum 04/03/2020 REHABILITATION AND SPORTS THERAPY OCCUPATIONAL THERAPY DISCONTINUANCE OF CARE Plan of Care Period: Start of Care Date: 12/05/19 Last Visit Date: 01/16/2020 Therapy Program: The following is a summary of the interventions provided for this episode of care; Therapeutic exercise, Self-snf management and Modalities Assessment: The following is the goal status: Patient will report a good understanding of diagnosis and OT recommendations for progression of program PROGRESSING 01/15 Patient will demonstrate independence with ongoing home exercise program PROGRESSING 01/15 Patient will increase AROM of right small and ring finger increase of 30 FITZGERALD or more in order to be able to maintain a bolt 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 PROGRESSED 01/15 Patient will report a good understanding of the use of modalities to help manage discomfort and promote healing PROGRESSED 01/15 Patient will independently demonstrate scar massage/management in order to decrease scar adherence by discharge PROGRESSED 01/15 Based on the most recent progress report, patient was progressing as expected toward functional goals based on documented subjective information on progress. Reason for Discontinuation of Care: Patient has not returned to therapy or scheduled additional follow-up appointments. Rosanna Jerome OT/L Episode Visit Count: 7 Therapist That Will Oversee The Plan Of Care: Joselito Marte Start of Care Date: 12/05/19 Onset Date: 11/26/19 Patient Identified by Name and Date of : Yes REHABILITATION AND SPORTS THERAPY OCCUPATIONAL THERAPY PROGRESS REPORT PLAN OF CARE UPDATE: Assessment: Mary Jo Maldonado exhibits difficulty with arom and improvements in AROM and strength . She continues to be limited with lifting and carrying. She is progressing as expected towards her therapy goals as demonstrated by: documented subjective information on progress. She will benefit from continued skilled therapy requiring exercises splinting manual techniques in order to improve function. Functional gains: Increased endurance / activity tolerance Increased independence with HEP Increased ROM Patient will report a good understanding of diagnosis and OT recommendations for progression of program PROGRESSING 01/15 Patient will demonstrate independence with ongoing home exercise program PROGRESSING 01/15 Patient will increase AROM of right small and ring finger increase of 30 FITZGERALD or more in order to be able to maintain a bolt 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 PROGRESSED 01/15 Patient will report a good understanding of the use of modalities to help manage discomfort and promote healing PROGRESSED 01/15 Patient will independently demonstrate scar massage/management in order to decrease scar adherence by discharge PROGRESSED 01/15 Planned Interventions, Frequency, and Duration: , Total Number of Visits Planned: 1 Planned Treatment Interventions: Prefabricated orthosis fitting;Custom orthosis fabrication;Therapeu tic exercise PLAN FOR NEXT VISIT: reassess upgrade HEP as needed SUBJECTIVE: Pt reporting overall finger and hand is better Pain: Post Treatment Pain Post Treatment Pain Level: 0 PROMIS Scales Higher is Better 12/03/2019 12/23/2019 01/09/2020 Phys Func - Score 55 (within normal limits) 50 (within normal limits) - Phys Func - Percentile 69 % 50 % - Social Roles - Score 45 (within normal limits) - 52 (within normal limits) Social Role - Percentile 31 % - 58 % GH Physical - Score 42.3 - - GH Physical - Percentile 22 % - - GH Mental - Score 38.8 - - GH Mental - Percentile 13 % - - Self-Eff Symptom - Score - - 50 (Average) Self-Eff Symptom - Percentile - - 50 % T-scores: mean of general population = 50. 5 points is clinically meaningfully difference Percentiles provide an indication of how the patient's score ranks in relation to the general population. Higher percentile rankings indicate better function/quality of life. 50th percentile is the average of the general population and indicates half of respondents had a worse score. Lower is Better 12/03/2019 12/23/2019 Fatigue - Score 59 (mild) 57 (mild) Fatigue - Percentile 18 % 24 % T-scores: mean of general population = 50. 5 points is clinically meaningfully difference Percentiles provide an indication of how the patient's score ranks in relation to the general population. Higher percentile rankings indicate better function/quality of life. 50th percentile is the average of the general population and indicates half of respondents had a worse score. OBJECTIVE MEASURES WITH LEVEL OF FUNCTION: Hand Right Hand AROM: Little Finger Left Hand AROM: Little Finger Strength: Associate Of Science In Nursing Position 2 Hand Strength L Associate Of Science In Nursing Position 2 (lbs): 40 lbs Hand AROM R Little Finger MP Flexion : 20 Degrees R Little Finger PIP Extension : -50 Degrees R Little Finger PIP Flexion : 82 Degrees R Little Finger DIP Extension : 0 Degrees R Little Finger DIP Flexion : 50 Degrees TREATMENT: Therapeutic Exercise: 1: tendon gliding with scar retraction 2: continue with putty exercise at home upgrade to medium (green) 3: PROM small finger 6: US 0.5 WCM2 x 5 minutes cont with scar retraction followed by scar massage Skilled Intervention: Patient was educated in proper exercise technique and purpose for exercises. Skilled judgment was provided in selection of appropriate interventions. Billing: Ana Rosa: Therapeutic Exercise ([id number]): 1:1 time:40 minutes (3 units: 38-52 mins) Total time: 40 minutes Rosanna Jerome OT/REINA Previous Version Normal [facility] PROGRESSon 01-16-2020 PROGRESS HNO ID: [id number] Author: Rosanna Jerome Service: ? Author Type: Occupational Therapist Type: Progress Notes Filed: 04/03/2020 2:27 PM Note Text: 04/03/2020 REHABILITATION AND SPORTS THERAPY OCCUPATIONAL THERAPY DISCONTINUANCE OF CARE Plan of Care Period: Start of Care Date: 12/05/19 Last Visit Date: 01/16/2020 Therapy Program: The following is a summary of the interventions provided for this episode of care; Therapeutic exercise, Self-snf management and Modalities Assessment: The following is the goal status: Patient will report a good understanding of diagnosis and OT recommendations for progression of program PROGRESSING 01/15 Patient will demonstrate independence with ongoing home exercise program PROGRESSING 01/15 Patient will increase AROM of right small and ring finger increase of 30 FITZGERALD or more in order to be able to maintain a bolt 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 PROGRESSED 01/15 Patient will report a good understanding of the use of modalities to help manage discomfort and promote healing PROGRESSED 01/15 Patient will independently demonstrate scar massage/management in order to decrease scar adherence by discharge PROGRESSED 01/15 Based on the most recent progress report, patient was progressing as expected toward functional goals based on documented subjective information on progress. Reason for Discontinuation of Care: Patient has not returned to therapy or scheduled additional follow-up appointments. Rosanna Jerome OT/Jonah Episode Visit Count: 7 Therapist That Will Oversee The Plan Of Care: Joselito Marte Start of Care Date: 12/05/19 Onset Date: 11/26/19 Patient Identified by Name and Date of : Yes REHABILITATION AND SPORTS THERAPY OCCUPATIONAL THERAPY PROGRESS REPORT PLAN OF CARE UPDATE: Assessment: Mary Jo Maldonado exhibits difficulty with arom and improvements in AROM and strength . She continues to be limited with lifting and carrying. She is progressing as expected towards her therapy goals as demonstrated by: documented subjective information on progress. She will benefit from continued skilled therapy requiring exercises splinting manual techniques in order to improve function. Functional gains: Increased endurance / activity tolerance Increased independence with HEP Increased ROM Patient will report a good understanding of diagnosis and OT recommendations for progression of program PROGRESSING 01/15 Patient will demonstrate independence with ongoing home exercise program PROGRESSING 01/15 Patient will increase AROM of right small and ring finger increase of 30 FITZGERALD or more in order to be able to maintain a bolt 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 PROGRESSED 01/15 Patient will report a good understanding of the use of modalities to help manage discomfort and promote healing PROGRESSED 01/15 Patient will independently demonstrate scar massage/management in order to decrease scar adherence by discharge PROGRESSED 01/15 Planned Interventions, Frequency, and Duration: , Total Number of Visits Planned: 1 Planned Treatment Interventions: Prefabricated orthosis fitting;Custom orthosis fabrication;Therapeu tic exercise PLAN FOR NEXT VISIT: reassess upgrade HEP as needed SUBJECTIVE: Pt reporting overall finger and hand is better Pain: Post Treatment Pain Post Treatment Pain Level: 0 PROMIS Scales Higher is Better 12/03/2019 12/23/2019 01/09/2020 Phys Func - Score 55 (within normal limits) 50 (within normal limits) - Phys Func - Percentile 69 % 50 % - Social Roles - Score 45 (within normal limits) - 52 (within normal limits) Social Role - Percentile 31 % - 58 % GH Physical - Score 42.3 - - GH Physical - Percentile 22 % - - GH Mental - Score 38.8 - - GH Mental - Percentile 13 % - - Self-Eff Symptom - Score - - 50 (Average) Self-Eff Symptom - Percentile - - 50 % T-scores: mean of general population = 50. 5 points is clinically meaningfully difference Percentiles provide an indication of how the patient's score ranks in relation to the general population. Higher percentile rankings indicate better function/quality of life. 50th percentile is the average of the general population and indicates half of respondents had a worse score. Lower is Better 12/03/2019 12/23/2019 Fatigue - Score 59 (mild) 57 (mild) Fatigue - Percentile 18 % 24 % T-scores: mean of general population = 50. 5 points is clinically meaningfully difference Percentiles provide an indication of how the patient's score ranks in relation to the general population. Higher percentile rankings indicate better function/quality of life. 50th percentile is the average of the general population and indicates half of respondents had a worse score. OBJECTIVE MEASURES WITH LEVEL OF FUNCTION: Hand Right Hand AROM: Little Finger Left Hand AROM: Little Finger Strength: Associate Of Science In Nursing Position 2 Hand Strength L Associate Of Science In Nursing Position 2 (lbs): 40 lbs Hand AROM R Little Finger MP Flexion : 20 Degrees R Little Finger PIP Extension : -50 Degrees R Little Finger PIP Flexion : 82 Degrees R Little Finger DIP Extension : 0 Degrees R Little Finger DIP Flexion : 50 Degrees TREATMENT: Therapeutic Exercise: 1: tendon gliding with scar retraction 2: continue with putty exercise at home upgrade to medium (green) 3: PROM small finger 6: US 0.5 WCM2 x 5 minutes cont with scar retraction followed by scar massage Skilled Intervention: Patient was educated in proper exercise technique and purpose for exercises. Skilled judgment was provided in selection of appropriate interventions. Billing: [facility]: Therapeutic Exercise ([id number]): 1:1 time:40 minutes (3 units: 38-52 mins) Total time: 40 minutes Rosanna Jerome OT/[facility] CNTHERAPYon 01-09-2020 CNTHERAPY OT/PT/Speech Visit ([facility]) MARY JO MALDONADO ([id number]) 1975 F Date Time Provider Department 01/09/20 1:30 PM ROSANNA JEROME (OT) [facility] Date Time Provider Department Center 01/09/2020 1:30 PM [id number] Visit: [facility] [504] Primary Visit Diagnosis:Finger stiffness, right [M25.641] Other Visit Diagnosis:Closed displaced fracture of neck of fifth metacarpal bone of right hand, sequela [S62.336S] Allergies As of Date: 01/09/2020 Noted Allergy Reaction AMOXICILLIN 10/17/2001 Comments: yeast infections TRAMADOL 09/09/2014 8 - GI Upset TYLENOL #3 (CODEINE) 09/09/2014 8 - GI Upset VICODIN (HYDROCODONE-ACETAMI NOPHE*09/09/2014 8 - GI Upset Date Reviewed: 12/09/2019 Reviewed by: Rhonda Russell (Pa) - Fully Assessed Prescriptions as of 01/09/2020 Sig: ONDANSETRON HCL 4 MG TABLET Take 1 tablet by mouth every * LEVOTHYROXINE 125 MCG TABLET Take 1 tablet by mouth once d* TYLENOL ORAL Take by mouth. IBUPROFEN ORAL Take by mouth. Progress Notes: Rosanna Jerome OT/Jonah 01/09/2020 5:00 PM Signed Episode Visit Count: 6 Therapist That Will Oversee The Plan Of Care: Joselito Marte Start of Care Date: 12/05/19 Onset Date: 11/26/19 Patient Identified by Name and Date of : Yes REHABILITATION AND SPORTS THERAPY OCCUPATIONAL THERAPY TREATMENT NOTE ASSESSMENT: Mary Jo Steven Bradfordchandrakantrenata demonstrated difficulty with small finger AROM. The patient will continue to benefit from continued skilled occupational therapy for exercises modalities and manual techniques PLAN FOR NEXT VISIT: SUBJECTIVE: s/p PIP manipulation capsulectomy tenolysis pt sick last week and did not get a chance to do her exercises much late to appoinment today. Pain: OBJECTIVE MEASURES WITH LEVEL OF FUNCTION: Hand Right Hand AROM: Little Finger Left Hand AROM: Little Finger Hand AROM R Little Finger MP Extension : 0 Degrees R Little Finger MP Flexion : 25 Degrees R Little Finger PIP Extension : -50 Degrees R Little Finger PIP Flexion : 82 Degrees R Little Finger DIP Extension : 0 Degrees R Little Finger DIP Flexion : 50 Degrees TREATMENT: Therapeutic Exercise: 1: tendon gliding with scar retraction 2: blocking with scar retraction 3: PROM small finger 4: provided additional straps for finger flexion glove 5: adjust static PIP extension splint 6: US 0.5 WCM2 x 5 minutes cont with scar retraction followed by scar massage Skilled Intervention: Patient was educated in proper exercise technique and purpose for exercises. Skilled judgment was provided in selection of appropriate interventions. Modalities: Fluidotherapy Body Region Treated - Fluidotherapy: right hand Patient Position: both hand with PROM FINGER FLKEXION AND EXTENSION Temperature: 106 Minute(s): 10 Activity 1: PROM See flowsheet for details regarding treatment. Skilled Intervention: Proper administration and selection of modality based on clinical presentation, deficits, and needs. Patient response monitored throughout treatment. Billing: Ana Rosa: Therapeutic Exercise ([id number]): 1:1 time:35 minutes (2 units: 23-37 mins) Fluidotherapy ([id number]) 1 unit(s) Total time: 45 minutes Rosanna Jerome OT/REINA [facility] PROGRESSon 01-09-2020 PROGRESS HNO ID: [id number] Author: Rosanna Jerome Service: ? Author Type: Occupational Therapist Type: Progress Notes Filed: 01/09/2020 5:00 PM Note Text: Episode Visit Count: 6 Therapist That Will Oversee The Plan Of Care: Joselito Marte Start of Care Date: 12/05/19 Onset Date: 11/26/19 Patient Identified by Name and Date of : Yes REHABILITATION AND SPORTS THERAPY OCCUPATIONAL THERAPY TREATMENT NOTE ASSESSMENT: Mary Jo Maldonado demonstrated difficulty with small finger AROM. The patient will continue to benefit from continued skilled occupational therapy for exercises modalities and manual techniques PLAN FOR NEXT VISIT: SUBJECTIVE: s/p PIP manipulation capsulectomy tenolysis pt sick last week and did not get a chance to do her exercises much late to appoinment today. Pain: OBJECTIVE MEASURES WITH LEVEL OF FUNCTION: Hand Right Hand AROM: Little Finger Left Hand AROM: Little Finger Hand AROM R Little Finger MP Extension : 0 Degrees R Little Finger MP Flexion : 25 Degrees R Little Finger PIP Extension : -50 Degrees R Little Finger PIP Flexion : 82 Degrees R Little Finger DIP Extension : 0 Degrees R Little Finger DIP Flexion : 50 Degrees TREATMENT: Therapeutic Exercise: 1: tendon gliding with scar retraction 2: blocking with scar retraction 3: PROM small finger 4: provided additional straps for finger flexion glove 5: adjust static PIP extension splint 6: US 0.5 WCM2 x 5 minutes cont with scar retraction followed by scar massage Skilled Intervention: Patient was educated in proper exercise technique and purpose for exercises. Skilled judgment was provided in selection of appropriate interventions. Modalities: Fluidotherapy Body Region Treated - Fluidotherapy: right hand Patient Position: both hand with PROM FINGER FLKEXION AND EXTENSION Temperature: 106 Minute(s): 10 Activity 1: PROM See flowsheet for details regarding treatment. Skilled Intervention: Proper administration and selection of modality based on clinical presentation, deficits, and needs. Patient response monitored throughout treatment. Billing: Ana Rosa: Therapeutic Exercise ([id number]): 1:1 time:35 minutes (2 units: 23-37 mins) Fluidotherapy ([id number]) 1 unit(s) Total time: 45 minutes Rosanna Jerome, OT/LCHT [facility] CNTHERAPYon 01-02-2020 CNTHERAPY OT/PT/Speech Visit ([facility]) MARY JO MALDONADO ([id number]) 1975 F Date Time Provider Department 01/02/20 11:45 AM ROSANNA JEROME () [facility] Date Time Provider Department Center 01/02/2020 11:45 AM [id number] JEROME *[facility] Reason for Visit: Occupational Therapy [504] Primary Visit Diagnosis:Finger stiffness, right [M25.641] Other Visit Diagnosis:Closed displaced fracture of neck of fifth metacarpal bone of right hand, sequela [S62.336S] Allergies As of Date: 01/02/2020 Noted Allergy Reaction AMOXICILLIN 10/17/2001 Comments: yeast infections TRAMADOL 09/09/2014 8 - GI Upset TYLENOL #3 (CODEINE) 09/09/2014 8 - GI Upset VICODIN (HYDROCODONE-ACETAMI NOPHE*09/09/2014 8 - GI Upset Date Reviewed: 12/09/2019 Reviewed by: Rhonda Russell (Pa) - Fully Assessed Prescriptions as of 01/02/2020 Sig: ONDANSETRON HCL 4 MG TABLET Take 1 tablet by mouth every * LEVOTHYROXINE 125 MCG TABLET Take 1 tablet by mouth once d* TYLENOL ORAL Take by mouth. IBUPROFEN ORAL Take by mouth. Progress Notes: CISCO Corrales 01/02/2020 2:50 PM Signed Episode Visit Count: 5 Therapist That Will Oversee The Plan Of Care: Joselito Marte Start of Care Date: 12/05/19 Onset Date: 11/26/19 Patient Identified by Name and Date of : Yes REHABILITATION AND SPORTS THERAPY OCCUPATIONAL THERAPY TREATMENT NOTE ASSESSMENT: Mary Jo Maldonado demonstrated difficulty with ROM of small finger. The patient will continue to benefit from continued skilled occupational therapy for exercises modalities manual techniques PLAN FOR NEXT VISIT: progress report SUBJECTIVE: Pt reports she does not bang her finger as much as she once did has been able to do paperwork at work Pain: Pain Pain Level: 1 OBJECTIVE MEASURES WITH LEVEL OF FUNCTION: Hand AROM R Little Finger MP Extension : 0 Degrees R Little Finger MP Flexion : 17 Degrees R Little Finger PIP Extension : -50 Degrees R Little Finger PIP Flexion : 85 Degrees R Little Finger DIP Extension : 0 Degrees R Little Finger DIP Flexion : 42 Degrees TREATMENT: Therapeutic Exercise: 1: tendon gliding with scar retraction 2: blocking with scar retraction 3: PROM small finger 4: wrapped in flexion with coban with hot pack for passive stretch 5: fabricated PIP extension static splint to wear at night instructed pt to continue with spring splint as able during the day 6: issued flexion glove instructed in wear schedule and precautions Skilled Intervention: Patient was educated in proper exercise technique and purpose for exercises. Correct performance of therapeutic exercises was facilitated with verbal and visual cuing. Manual Therapy: 1: joint mobilization to MP joint small digit 2: scar mobilization with suction tool Skilled Intervention: Manual skills to improve joint mobility, ROM, and decrease pain. Utilized anatomy knowledge of the therapist, and assessment of patient's response to intervention. Prefabricated orthosis: L 3912 O prefab flexion glove Prefabricated orthosis to provide Pt practiced orthosis application, donning on/off while under OT's supervision.. Patient was instructed in wear and care. Instructed in wearing schedule as able 3 x per day up to one hour . Skilled Intervention: Technical skill required for proper fitting of pre-fabricated orthotic and wearing schedule Billing: Ana Rosa: Therapeutic Exercise ([id number]): 1:1 time:25 minutes (2 units: 23-37 mins) Manual Therapy ([id number]): 1:1 time: 10 minutes (1 unit: 8-22 mins) Finger flexion glove Total time: 35 minutes Rosanna Jerome OT/REINA Normal [facility] PROGRESSon 01-02-2020 PROGRESS HNO ID: [id number] Author: Rosanna Jerome Service: ? Author Type: Occupational Therapist Type: Progress Notes Filed: 01/02/2020 2:50 PM Note Text: Episode Visit Count: 5 Therapist That Will Oversee The Plan Of Care: Joselito Marte Start of Care Date: 12/05/19 Onset Date: 11/26/19 Patient Identified by Name and Date of : Yes REHABILITATION AND SPORTS THERAPY OCCUPATIONAL THERAPY TREATMENT NOTE ASSESSMENT: Mary Jo Maldonado demonstrated difficulty with ROM of small finger. The patient will continue to benefit from continued skilled occupational therapy for exercises modalities manual techniques PLAN FOR NEXT VISIT: progress report SUBJECTIVE: Pt reports she does not bang her finger as much as she once did has been able to do paperwork at work Pain: Pain Pain Level: 1 OBJECTIVE MEASURES WITH LEVEL OF FUNCTION: Hand AROM R Little Finger MP Extension : 0 Degrees R Little Finger MP Flexion : 17 Degrees R Little Finger PIP Extension : -50 Degrees R Little Finger PIP Flexion : 85 Degrees R Little Finger DIP Extension : 0 Degrees R Little Finger DIP Flexion : 42 Degrees TREATMENT: Therapeutic Exercise: 1: tendon gliding with scar retraction 2: blocking with scar retraction 3: PROM small finger 4: wrapped in flexion with coban with hot pack for passive stretch 5: fabricated PIP extension static splint to wear at night instructed pt to continue with spring splint as able during the day 6: issued flexion glove instructed in wear schedule and precautions Skilled Intervention: Patient was educated in proper exercise technique and purpose for exercises. Correct performance of therapeutic exercises was facilitated with verbal and visual cuing. Manual Therapy: 1: joint mobilization to MP joint small digit 2: scar mobilization with suction tool Skilled Intervention: Manual skills to improve joint mobility, ROM, and decrease pain. Utilized anatomy knowledge of the therapist, and assessment of patient's response to intervention. Prefabricated orthosis: L 3912 HFO prefab flexion glove Prefabricated orthosis to provide Pt practiced orthosis application, donning on/off while under OT's supervision.. Patient was instructed in wear and care. Instructed in wearing schedule as able 3 x per day up to one hour . Skilled Intervention: Technical skill required for proper fitting of pre-fabricated orthotic and wearing schedule Billing: [place]: Therapeutic Exercise ([id number]): 1:1 time:25 minutes (2 units: 23-37 mins) Manual Therapy (10552): 1:1 time: 10 minutes (1 unit: 8-22 mins) Finger flexion glove Total time: 35 minutes Rosanna Jerome OT/[facility] CNTHERAPYon 12-30-2019 CNTHERAPY OT/PT/Speech Visit ([facility]) MARY JO MALDONADO ([id number]) 1975 F Date Time Provider Department 12/30/19 4:00 PM CHYNA WILLSON (OT/L) [facility] Date Time Provider Department Center 12/30/2019 4:00 PM [id number] [facility] Reason for Visit: Occupational Therapy [504] Primary Visit Diagnosis:Finger stiffness, right [M25.641] Allergies As of Date: 12/30/2019 Noted Allergy Reaction AMOXICILLIN 10/17/2001 Comments: yeast infections TRAMADOL 09/09/2014 8 - GI Upset TYLENOL #3 (CODEINE) 09/09/2014 8 - GI Upset VICODIN (HYDROCODONE-ACETAMI NOPHE*09/09/2014 8 - GI Upset Date Reviewed: 12/09/2019 Reviewed by: Rhonda Russell (Pa) - Fully Assessed Prescriptions as of 12/30/2019 Sig: ONDANSETRON HCL 4 MG TABLET Take 1 tablet by mouth every * LEVOTHYROXINE 125 MCG TABLET Take 1 tablet by mouth once d* TYLENOL ORAL Take by mouth. IBUPROFEN ORAL Take by mouth. Progress Notes: CISCO Andino 12/30/2019 6:19 PM Signed Episode Visit Count: 4 Therapist That Will Oversee The Plan Of Care: Joselito Marte Start of Care Date: 12/05/19 Onset Date: 11/26/19 Patient Identified by Name and Date of : Yes Surgical Procedure: PIP manipulation tenolysis capsulotomy Surgical Procedure Date: 11/26/19 REHABILITATION AND SPORTS THERAPY OCCUPATIONAL THERAPY TREATMENT NOTE ASSESSMENT: Mary Jo Maldonado demonstrated difficulty with thick adherent scarring and MP joint stiffness limiting functional A/PROM of small finger . The patient will continue to benefit from continued skilled occupational therapy for safe progression of exercises, splinting, scar management, modalities PLAN FOR NEXT VISIT: MP flex stretcing splint SUBJECTIVE: s/p PIP manipulation capsulectomy tenolysis pt sick last week and did not get a chance to do her exercises much late to appoinment today. Pain: Pain Pain Level: 1 Pain Location: Finger - Left Description: Aching Post Treatment Pain Post Treatment Pain Level: 4 Post Treatment Pain Location: Finger - Left Post Treatment Pain Description: Sharp;Burning Post Treatment Symptoms: 0 OBJECTIVE MEASURES WITH LEVEL OF FUNCTION: Hand Skin / Wound: Scar Scar: Severe adherance Right Hand AROM: Little Finger Hand AROM R Little Finger MP Extension : 0 Degrees R Little Finger MP Flexion : 20 Degrees R Little Finger PIP Extension : -30 Degrees R Little Finger PIP Flexion : 85 Degrees R Little Finger DIP Extension : -5 Degrees R Little Finger DIP Flexion : 53 Degrees TREATMENT: Therapeutic Exercise: 1: tendon gliding with scar retraction 2: blocking with scar retraction 3: PROM small finger Skilled Intervention: Patient was educated in proper exercise technique and purpose for exercises. Skilled judgment was provided in selection of appropriate interventions. Correct performance of therapeutic exercises was facilitated with verbal cuing. Patient education as noted. Manual Therapy: 1: joint mobilization to MP joint small digit 2: scar mobilization with dycem addedding retraction with gliding Skilled Intervention: Manual skills to improve joint mobility, ROM, and decrease pain. Utilized anatomy knowledge of the therapist, and assessment of patient's response to intervention. Home Exercise Program Assigned: 1: issued dycem for scar retraction exercises with tendon gliding and ROM to help mobilize scar 2: instructed on use of paper tape technique over scar to help with mobilizing scar to use during daytime activities and remove for dycem scar retraction ex 3: education on using dycem for scar retraction technique while performing tendon gliding and ROm ex [place]: [place]: Therapeutic Exercise ([id number]): 1:1 time:23 minutes (2 units: 23-37 mins) Manual Therapy ([id number]): 1:1 time: 15 minutes (1 unit: 8-22 mins) Total time: 38 minutes Chyna Willson OT/L Normal [facility] PROGRESSon 12-30-2019 PROGRESS HNO ID: [id number] Author: Chyna Lynch/Shaneka Willson Service: ? Author Type: Occupational Therapist Type: Progress Notes Filed: 12/30/2019 6:19 PM Note Text: Episode Visit Count: 4 Therapist That Will Oversee The Plan Of Care: Joselito Rosanna Start of Care Date: 12/05/19 Onset Date: 11/26/19 Patient Identified by Name and Date of : Yes Surgical Procedure: PIP manipulation tenolysis capsulotomy Surgical Procedure Date: 11/26/19 REHABILITATION AND SPORTS THERAPY OCCUPATIONAL THERAPY TREATMENT NOTE ASSESSMENT: Mary Jo Maldonado demonstrated difficulty with thick adherent scarring and MP joint stiffness limiting functional A/PROM of small finger . The patient will continue to benefit from continued skilled occupational therapy for safe progression of exercises, splinting, scar management, modalities PLAN FOR NEXT VISIT: MP flex stretcing splint SUBJECTIVE: s/p PIP manipulation capsulectomy tenolysis pt sick last week and did not get a chance to do her exercises much late to appoinment today. Pain: Pain Pain Level: 1 Pain Location: Finger - Left Description: Aching Post Treatment Pain Post Treatment Pain Level: 4 Post Treatment Pain Location: Finger - Left Post Treatment Pain Description: Sharp;Burning Post Treatment Symptoms: 0 OBJECTIVE MEASURES WITH LEVEL OF FUNCTION: Hand Skin / Wound: Scar Scar: Severe adherance Right Hand AROM: Little Finger Hand AROM R Little Finger MP Extension : 0 Degrees R Little Finger MP Flexion : 20 Degrees R Little Finger PIP Extension : -30 Degrees R Little Finger PIP Flexion : 85 Degrees R Little Finger DIP Extension : -5 Degrees R Little Finger DIP Flexion : 53 Degrees TREATMENT: Therapeutic Exercise: 1: tendon gliding with scar retraction 2: blocking with scar retraction 3: PROM small finger Skilled Intervention: Patient was educated in proper exercise technique and purpose for exercises. Skilled judgment was provided in selection of appropriate interventions. Correct performance of therapeutic exercises was facilitated with verbal cuing. Patient education as noted. Manual Therapy: 1: joint mobilization to MP joint small digit 2: scar mobilization with dycem addedding retraction with gliding Skilled Intervention: Manual skills to improve joint mobility, ROM, and decrease pain. Utilized anatomy knowledge of the therapist, and assessment of patient's response to intervention. Home Exercise Program Assigned: 1: issued dycem for scar retraction exercises with tendon gliding and ROM to help mobilize scar 2: instructed on use of paper tape technique over scar to help with mobilizing scar to use during daytime activities and remove for dycem scar retraction ex 3: education on using dycem for scar retraction technique while performing tendon gliding and ROm ex Billing: [place]: Therapeutic Exercise ([id number]): 1:1 time:23 minutes (2 units: 23-37 mins) Manual Therapy (98450): 1:1 time: 15 minutes (1 unit: 8-22 mins) Total time: 38 minutes Chyna Willson OT/L [facility] CNTHERAPYon 12-19-2019 CNTHERAPY OT/PT/Speech Visit ([facility]) MARY JO MALDONADO ([id number]) 1975 F Date Time Provider Department 12/19/19 1:30 PM ROSANNA JEROME (OT) [facility] Date Time Provider Department Center 12/19/2019 1:30 PM [id number] Visit: [facility]ational Therapy [504] Primary Visit Diagnosis:Closed displaced fracture of neck of fifth metacarpal bone of right hand, sequela [S62.336S] Allergies As of Date: 12/19/2019 Noted Allergy Reaction AMOXICILLIN 10/17/2001 Comments: yeast infections TRAMADOL 09/09/2014 8 - GI Upset TYLENOL #3 (CODEINE) 09/09/2014 8 - GI Upset VICODIN (HYDROCODONE-ACETAMI NOPHE*09/09/2014 8 - GI Upset Date Reviewed: 12/09/2019 Reviewed by: Rhonda Russell (Pa) - Fully Assessed Prescriptions as of 12/19/2019 Sig: ONDANSETRON HCL 4 MG TABLET Take 1 tablet by mouth every * LEVOTHYROXINE 125 MCG TABLET Take 1 tablet by mouth once d* TYLENOL ORAL Take by mouth. IBUPROFEN ORAL Take by mouth. Progress Notes: Rosanna Jerome OT/Jonah 12/19/2019 2:21 PM Signed Episode Visit Count: 3 Therapist That Will Oversee The Plan Of Care: Joselito Marte Start of Care Date: 12/05/19 Onset Date: 11/26/19 Patient Identified by Name and Date of : Yes REHABILITATION AND SPORTS THERAPY OCCUPATIONAL THERAPY TREATMENT NOTE ASSESSMENT: Mary Jo Maldonado demonstrated difficulty with edema full AROM and scar. The patient will continue to benefit from continued skilled occupational therapy for splinting modalities exercises PLAN FOR NEXT VISIT: MP flex stretcing splint SUBJECTIVE: Pt reports she was able to work light duty for 6 hour was sore Pain: Pain Pain Level: 5 Pain Location: Hand - Right OBJECTIVE MEASURES WITH LEVEL OF FUNCTION: Hand AROM R Little Finger MP Extension : 10 Degrees R Little Finger MP Flexion : 20 Degrees R Little Finger PIP Extension : -30 Degrees R Little Finger PIP Flexion : 74 Degrees R Little Finger DIP Extension : -15 Degrees R Little Finger DIP Flexion : 45 Degrees TREATMENT: Therapeutic Exercise: 1: tendon gliding 2: blocking 3: PROM small finger 4: issed silicone instructed in wear schedule and precautions 5: medium soft putty bolt man digit extension roll 6: spring extension splint instructed in wear schedule and precautions 7: scar mobilization with dycem Skilled Intervention: Patient was educated in proper exercise technique and purpose for exercises. Provided written instruction for home exercise program to facilitate proper performance and compliance. Correct performance of therapeutic exercises was facilitated with verbal cuing. Modalities: Fluidotherapy Body Region Treated - Fluidotherapy: right hand Patient Position: seated Temperature: 108 Minute(s): 10 See flowsheet for details regarding treatment. Skilled Intervention: Proper administration and selection of modality based on clinical presentation, deficits, and needs. Patient response monitored throughout treatment. Billing: Ana Rosa: Therapeutic Exercise ([id number]): 1:1 time:30 minutes (2 units: 23-37 mins) Fluidotherapy (94962) 1 unit(s) Finger extension splint Total time: 40 minutes Rosanna Jerome OT/MAXINEHT Annotated image of OT HAND THERAPUTTY EXERCISES PG 2 last updated by Rosanna Jerome on 12/19/2019 2:04 PM Normal [facility] PROGRESSon 12-19-2019 PROGRESS HNO ID: [id number] Author: Rosanna Jerome Service: ? Author Type: Occupational Therapist Type: Progress Notes Filed: 12/19/2019 2:21 PM Note Text: Episode Visit Count: 3 Therapist That Will Oversee The Plan Of Care: Joselito Marte Start of Care Date: 12/05/19 Onset Date: 11/26/19 Patient Identified by Name and Date of : Yes REHABILITATION AND SPORTS THERAPY OCCUPATIONAL THERAPY TREATMENT NOTE ASSESSMENT: Mary Jo Felderchandrakantrenata demonstrated difficulty with edema full AROM and scar. The patient will continue to benefit from continued skilled occupational therapy for splinting modalities exercises PLAN FOR NEXT VISIT: MP flex stretcing splint SUBJECTIVE: Pt reports she was able to work light duty for 6 hour was sore Pain: Pain Pain Level: 5 Pain Location: Hand - Right OBJECTIVE MEASURES WITH LEVEL OF FUNCTION: Hand AROM R Little Finger MP Extension : 10 Degrees R Little Finger MP Flexion : 20 Degrees R Little Finger PIP Extension : -30 Degrees R Little Finger PIP Flexion : 74 Degrees R Little Finger DIP Extension : -15 Degrees R Little Finger DIP Flexion : 45 Degrees TREATMENT: Therapeutic Exercise: 1: tendon gliding 2: blocking 3: PROM small finger 4: issed silicone instructed in wear schedule and precautions 5: medium soft putty bolt man digit extension roll 6: spring extension splint instructed in wear schedule and precautions 7: scar mobilization with dycem Skilled Intervention: Patient was educated in proper exercise technique and purpose for exercises. Provided written instruction for home exercise program to facilitate proper performance and compliance. Correct performance of therapeutic exercises was facilitated with verbal cuing. Modalities: Fluidotherapy Body Region Treated - Fluidotherapy: right hand Patient Position: seated Temperature: 108 Minute(s): 10 See flowsheet for details regarding treatment. Skilled Intervention: Proper administration and selection of modality based on clinical presentation, deficits, and needs. Patient response monitored throughout treatment. Billing: Ana Rosa: Therapeutic Exercise (30511): 1:1 time:30 minutes (2 units: 23-37 mins) Fluidotherapy (09870) 1 unit(s) Finger extension splint Total time: 40 minutes [facility]-2019 CNTHERAPY OT/PT/Speech Visit ([facility]) MARY JO MALDONADO ([id number]) 1975 F Date Time Provider Department 12/10/19 12:45 PM [facility] Date Time Provider Department Center 12/10/2019 12:45 PM [id number] JEROME *[facility] Reason for Visit: Occupational Therapy [504] Primary Visit Diagnosis:Closed displaced fracture of neck of fifth metacarpal bone of right hand, sequela [S62.336S] Allergies As of Date: 12/10/2019 Noted Allergy Reaction AMOXICILLIN 10/17/2001 Comments: yeast infections TRAMADOL 09/09/2014 8 - GI Upset TYLENOL #3 (CODEINE) 09/09/2014 8 - GI Upset VICODIN (HYDROCODONE-ACETAMI NOPHE*09/09/2014 8 - GI Upset Date Reviewed: 12/09/2019 Reviewed by: Rhonda Russell (Pa) - Fully Assessed Prescriptions as of 12/10/2019 Sig: ONDANSETRON HCL 4 MG TABLET Take 1 tablet by mouth every * LEVOTHYROXINE 125 MCG TABLET Take 1 tablet by mouth once d* TYLENOL ORAL Take by mouth. IBUPROFEN ORAL Take by mouth. Progress Notes: Rosanna Jerome OT/L 12/10/2019 1:56 PM Signed Episode Visit Count: 2 Therapist That Will Oversee The Plan Of Care: Joselito Marte Start of Care Date: 12/05/19 Onset Date: 11/26/19 Patient Identified by Name and Date of : Yes REHABILITATION AND SPORTS THERAPY OCCUPATIONAL THERAPY TREATMENT NOTE ASSESSMENT: Mary Jo Maldonado demonstrated difficulty with AROM small finger has lost some motion since initial eval, . The patient will continue to benefit from continued skilled occupational therapy for education splinting manual techniques exercises and modalities PLAN FOR NEXT VISIT: trial fluido, or paraffin in wrapped position SUBJECTIVE: Pt reporting sutures were removed reports she feels incision keeps opening up reports she has tried nahum taping and only splints on occasion Pain: Pain Pain Level: 2 Pain Location: Hand - Right OBJECTIVE MEASURES WITH LEVEL OF FUNCTION: Hand AROM R Little Finger MP Flexion : 23 Degrees R Little Finger PIP Extension : -30 Degrees R Little Finger PIP Flexion : 74 Degrees R Little Finger DIP Extension : -18 Degrees R Little Finger DIP Flexion : 44 Degrees TREATMENT: Therapeutic Exercise: 1: tendon gliding 2: blocking 3: PROM small finger 4: instructed in keeping incision dry secondary to a lot of moisture instructed in scar massage in dry areas 5: moist hot pack with extension stretch 6: fabricated hand based splint for protection during work only 7: fabricated PIP extension static splint for night wear or 1 hour period of time during the day instructed in wear schedule and precautions 8: ball rolling on table for extension stretch 9: instructed in importance of frequent motion Skilled Intervention: Patient was educated in proper exercise technique and purpose for exercises. Skilled judgment was provided in selection of appropriate interventions. Custom orthosis: Custom orthosis to provide other: to increase motion . Patient was instructed in care of orthosis and wearing schedule at night with precautions after she determines by day wear she can tolerate it during the day or during the day for 1 hour. Skilled Intervention: Clinical knowledge and skills required for custom orthotic fabrication and wearing schedule Billing: [place]: Therapeutic Exercise ([id number]): 1:1 time:45 minutes (3 units: 38-52 mins) Finger extension static splint custom Total time: 55 minutes Rosanna Jerome OT/REINA Normal [facility] PROGRESSon 12-10-2019 PROGRESS HNO ID: [id number] Author: Rosanna Jerome Service: ? Author Type: Occupational Therapist Type: Progress Notes Filed: 12/10/2019 1:56 PM Note Text: Episode Visit Count: 2 Therapist That Will Oversee The Plan Of Care: Joselito Marte Start of Care Date: 12/05/19 Onset Date: 11/26/19 Patient Identified by Name and Date of : Yes REHABILITATION AND SPORTS THERAPY OCCUPATIONAL THERAPY TREATMENT NOTE ASSESSMENT: Mary Jo Maldonado demonstrated difficulty with AROM small finger has lost some motion since initial eval, . The patient will continue to benefit from continued skilled occupational therapy for education splinting manual techniques exercises and modalities PLAN FOR NEXT VISIT: trial fluido, or paraffin in wrapped position SUBJECTIVE: Pt reporting sutures were removed reports she feels incision keeps opening up reports she has tried nahum taping and only splints on occasion Pain: Pain Pain Level: 2 Pain Location: Hand - Right OBJECTIVE MEASURES WITH LEVEL OF FUNCTION: Hand AROM R Little Finger MP Flexion : 23 Degrees R Little Finger PIP Extension : -30 Degrees R Little Finger PIP Flexion : 74 Degrees R Little Finger DIP Extension : -18 Degrees R Little Finger DIP Flexion : 44 Degrees TREATMENT: Therapeutic Exercise: 1: tendon gliding 2: blocking 3: PROM small finger 4: instructed in keeping incision dry secondary to a lot of moisture instructed in scar massage in dry areas 5: moist hot pack with extension stretch 6: fabricated hand based splint for protection during work only 7: fabricated PIP extension static splint for night wear or 1 hour period of time during the day instructed in wear schedule and precautions 8: ball rolling on table for extension stretch 9: instructed in importance of frequent motion Skilled Intervention: Patient was educated in proper exercise technique and purpose for exercises. Skilled judgment was provided in selection of appropriate interventions. Custom orthosis: Custom orthosis to provide other: to increase motion . Patient was instructed in care of orthosis and wearing schedule at night with precautions after she determines by day wear she can tolerate it during the day or during the day for 1 hour. Skilled Intervention: Clinical knowledge and skills required for custom orthotic fabrication and wearing schedule Billing: [place]: Therapeutic Exercise ([id number]): 1:1 time:45 minutes (3 units: 38-52 mins) Finger extension static splint custom Total time: 55 minutes Rosanna Jerome, OT/[facility] CNTHERAPYon 12-05-2019 CNTHERAPY OT/PT/Speech Visit ([facility]) MARY JO MALDONADO ([id number]) 1975 F Date Time Provider Department 12/05/19 11:00 AM ROSANNA JEROME (OT) [facility] Date Time Provider Department Center 12/05/2019 11:00 AM [id number] JEROME *[facility] Reason for Visit: OT EVAL [748] Primary Visit Diagnosis:Finger stiffness, right [M25.641] Other Visit Diagnosis:Closed displaced fracture of neck of fifth metacarpal bone of right hand with routine healing, subsequent encounter [S62.336D] Allergies As of Date: 12/05/2019 Noted Allergy Reaction AMOXICILLIN 10/17/2001 Comments: yeast infections TRAMADOL 09/09/2014 8 - GI Upset TYLENOL #3 (CODEINE) 09/09/2014 8 - GI Upset VICODIN (HYDROCODONE-ACETAMI NOPHE*09/09/2014 8 - GI Upset Date Reviewed: 11/26/2019 Reviewed by: Hema Mckenzie (Rn) FRANTZ Cartagen[place] - Fully Assessed Prescriptions as of 12/05/2019 Sig: ONDANSETRON HCL 4 MG TABLET Take 1 tablet by mouth every * LEVOTHYROXINE 125 MCG TABLET Take 1 tablet by mouth once d* TYLENOL ORAL Take by mouth. IBUPROFEN ORAL Take by mouth. Progress Notes: CISCO Corrales 12/05/2019 3:33 PM Signed Episode Visit Count: 1 Therapist That Will Oversee The Plan Of Care: Joselito Marte Start of Care Date: 12/05/19 Onset Date: 11/26/19 Patient Identified by Name and Date of : Yes [facility] REHABILITATION AND SPORTS THERAPY OCCUPATIONAL THERAPY EVALUATION PLAN OF CARE: Assessment: Mary Jo Maldonado presents with the chief complaint of stiffness and edema. She presents with impairments of AROM edema and scar. She may benefit from skilled occupational therapy services to improve function. 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 Patient will report a good understanding of the use of modalities to help manage discomfort and promote healing Patient will independently demonstrate scar massage/management in order to decrease scar adherence by discharge Planned Interventions, Frequency, and Duration: Current Frequency: 1x/week Duration: 8 weeks Total Number of Visits Planned: 8 Planned Treatment Interventions: Custom orthosis fabrication;Prefabri cated orthosis fitting;Therapeutic exercise;Manual therapy;Self-snf management;Modalitie sFluidotherapy PLAN FOR NEXT VISIT: remove sutures scar management measure strength Patient demonstrates good understanding of plan of care and treatment. The above goals and plan of care were discussed and agreed upon by patient/family. SUBJECTIVE: Mary Jo Maldonado is a 43 year old female seen today for s/p PIP manipulation capsulectomy tenolysis Functional Limitations: gripping;pinching;we ight bearing Prior Level of Function: Independent without limitations Patient Goals: to resume motion and function Intake Information: Prescription present Previous Treatment: None Pain: Pain Pain Level: 0 Pain Location: Hand - Right Description: Sore Frequency: Intermittent Post Treatment Pain Post Treatment Pain Level: 0 Post Treatment Pain Location: Hand - Right PROMIS Scales Higher is Better 12/03/2019 Phys Func - Score 55 (within normal limits) Phys Func - Percentile 69 % Social Roles - Score 45 (within normal limits) Social Role - Percentile 31 % GH Physical - Score 42.3 GH Physical - Percentile 22 % GH Mental - Score 38.8 GH Mental - Percentile 13 % T-scores: mean of general population = 50. 5 points is clinically meaningfully difference Percentiles provide an indication of how the patient's score ranks in relation to the general population. Higher percentile rankings indicate better function/quality of life. 50th percentile is the average of the general population and indicates half of respondents had a worse score. Lower is Better 12/03/2019 Fatigue - Score 59 (mild) Fatigue - Percentile 18 % T-scores: mean of general population = 50. 5 points is clinically meaningfully difference Percentiles provide an indication of how the patient's score ranks in relation to the general population. Higher percentile rankings indicate better function/quality of life. 50th percentile is the average of the general population and indicates half of respondents had a worse score. OBJECTIVE MEASURES WITH LEVEL OF FUNCTION: Hand Skin / Wound: Sutures Wound Description: to be removed Edema Location: right hand and finger Edema Description: Moderate Edema Measurements: Digits Edema - Digits: Little Finger R Little Finger P1 (cm): 6 cm R Little Finger P2 (cm): 5.4 cm L Little Finger P1 (cm): 5.2 cm L Little Finger P2 (cm): 4.4 cm Wrist AROM: Right Limitation Right Hand AROM: Ring Finger;Little Finger Sensation: Reports tingling or numbness UE AROM R Wrist Extension: 55 Degrees R Wrist Flexion: 75 Degrees R Wrist Radial Deviation: 30 Degrees R Wrist Ulnar Deviation: 15 Degrees Hand AROM R Ring Finger MP Extension : 0 Degrees R Ring Finger MP Flexion : 20 Degrees R Ring Finger PIP Extension: 0 Degrees R Ring Finger PIP Flexion : 57 Degrees R Ring Finger DIP Extension: 0 Degrees R Ring Finger DIP Flexion : 34 Degrees R Little Finger MP Extension : 4 Degrees R Little Finger MP Flexion : 35 Degrees R Little Finger PIP Extension : -30 Degrees R Little Finger PIP Flexion : 103 Degrees R Little Finger DIP Extension : 0 Degrees R Little Finger DIP Flexion : 55 Degrees Education: Education Learning Preferences: Demonstration;Explan ation Barriers: None Learning/educational needs: Home exercise program;Plan of Care;Brace Fit Education Provided: Yes, see treatment interventions for education provided Education Provided To: Patient Education Mode/Type: Demonstration;Explan ation/Discussion;Lit erature/Printed Materials Response to Education/Teach Back: States/Identifies;Re turn Demonstration;Requir es Review/Additional Education TREATMENT: Evaluation Evaluation Therapeutic Exercise: 1: tendon gliding 2: blocking 3: PROM small finger 4: assess incision deferred siuture removal til next week 5: instructed in edema reduction chun davison instructed in wear schedule 6: fabricated hand splint instructed in wear schedule and precautions Skilled Intervention: Patient was educated in proper exercise technique and purpose for exercises. Skilled judgment was provided in selection of appropriate interventions. Provided written instruction for home exercise program to facilitate proper performance and compliance. Self-Jail Management: 1: educated in diagnosis and healing 2: emphasized importance for frequent ROM Skilled Intervention: Skilled judgment in the selection of proper modification for activity of daily living/home management based on clinical presentation, deficits, and needs. Custom orthosis: L 3913 HFO custom w/o joints (oppon/ hand mendes/ hand trigger/ other) Custom orthosis to provide Pt practiced orthosis application, donning on/off while under OT's supervision. and to promote healing. Patient was instructed in care of orthosis and wearing schedule Protection only outdoors / heavy use.. Skilled Intervention: Clinical knowledge and skills required for custom orthotic fabrication and wearing schedule Billing: [place]: Evaluation - Moderate Complexity (44706) Self Care / Home Management (64921): 1:1 time:10 minutes (1 unit: 8-22 mins) Therapeutic Exercise (99446): 1:1 time:10 minutes (1 unit: 8-22 mins) Custom hand finger splint Total time: 55 minutes Rosanna Jerome OT/[facility] Annotated image of OT HAND TENDON GLIDING FINGER EX'S last updated by Rosanna Jerome on 12/05/2019 11:51 AM Normal [facility] PROGRESSon 12-05-2019 PROGRESS HNO ID: [id number] Author: Rosanna Jerome Service: ? Author Type: Occupational Therapist Type: Progress Notes Filed: 12/05/2019 3:33 PM Note Text: Episode Visit Count: 1 Therapist That Will Oversee The Plan Of Care: Joselito Marte Start of Care Date: 12/05/19 Onset Date: 11/26/19 Patient Identified by Name and Date of : Yes [facility] OCCUPATIONAL THERAPY EVALUATION PLAN OF CARE: Assessment: Mary Jo Maldonado presents with the chief complaint of stiffness and edema. She presents with impairments of AROM edema and scar. She may benefit from skilled occupational therapy services to improve function. 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 Patient will report a good understanding of the use of modalities to help manage discomfort and promote healing Patient will independently demonstrate scar massage/management in order to decrease scar adherence by discharge Planned Interventions, Frequency, and Duration: Current Frequency: 1x/week Duration: 8 weeks Total Number of Visits Planned: 8 Planned Treatment Interventions: Custom orthosis fabrication;Prefabri cated orthosis fitting;Therapeutic exercise;Manual therapy;Self-snf management;Modalitie sFluidotherapy PLAN FOR NEXT VISIT: remove sutures scar management measure strength Patient demonstrates good understanding of plan of care and treatment. The above goals and plan of care were discussed and agreed upon by patient/family. SUBJECTIVE: Mary Jo Maldonado is a 43 year old female seen today for s/p PIP manipulation capsulectomy tenolysis Functional Limitations: gripping;pinching;we ight bearing Prior Level of Function: Independent without limitations Patient Goals: to resume motion and function Intake Information: Prescription present Previous Treatment: None Pain: Pain Pain Level: 0 Pain Location: Hand - Right Description: Sore Frequency: Intermittent Post Treatment Pain Post Treatment Pain Level: 0 Post Treatment Pain Location: Hand - Right PROMIS Scales Higher is Better 12/03/2019 Phys Func - Score 55 (within normal limits) Phys Func - Percentile 69 % Social Roles - Score 45 (within normal limits) Social Role - Percentile 31 % GH Physical - Score 42.3 GH Physical - Percentile 22 % GH Mental - Score 38.8 GH Mental - Percentile 13 % T-scores: mean of general population = 50. 5 points is clinically meaningfully difference Percentiles provide an indication of how the patient's score ranks in relation to the general population. Higher percentile rankings indicate better function/quality of life. 50th percentile is the average of the general population and indicates half of respondents had a worse score. Lower is Better 12/03/2019 Fatigue - Score 59 (mild) Fatigue - Percentile 18 % T-scores: mean of general population = 50. 5 points is clinically meaningfully difference Percentiles provide an indication of how the patient's score ranks in relation to the general population. Higher percentile rankings indicate better function/quality of life. 50th percentile is the average of the general population and indicates half of respondents had a worse score. OBJECTIVE MEASURES WITH LEVEL OF FUNCTION: Hand Skin / Wound: Sutures Wound Description: to be removed Edema Location: right hand and finger Edema Description: Moderate Edema Measurements: Digits Edema - Digits: Little Finger R Little Finger P1 (cm): 6 cm R Little Finger P2 (cm): 5.4 cm L Little Finger P1 (cm): 5.2 cm L Little Finger P2 (cm): 4.4 cm Wrist AROM: Right Limitation Right Hand AROM: Ring Finger;Little Finger Sensation: Reports tingling or numbness UE AROM R Wrist Extension: 55 Degrees R Wrist Flexion: 75 Degrees R Wrist Radial Deviation: 30 Degrees R Wrist Ulnar Deviation: 15 Degrees Hand AROM R Ring Finger MP Extension : 0 Degrees R Ring Finger MP Flexion : 20 Degrees R Ring Finger PIP Extension: 0 Degrees R Ring Finger PIP Flexion : 57 Degrees R Ring Finger DIP Extension: 0 Degrees R Ring Finger DIP Flexion : 34 Degrees R Little Finger MP Extension : 4 Degrees R Little Finger MP Flexion : 35 Degrees R Little Finger PIP Extension : -30 Degrees R Little Finger PIP Flexion : 103 Degrees R Little Finger DIP Extension : 0 Degrees R Little Finger DIP Flexion : 55 Degrees Education: Education Learning Preferences: Demonstration;Explan ation Barriers: None Learning/educational needs: Home exercise program;Plan of Care;Brace Fit Education Provided: Yes, see treatment interventions for education provided Education Provided To: Patient Education Mode/Type: Demonstration;Explan ation/Discussion;Lit erature/Printed Materials Response to Education/Teach Back: States/Identifies;Re turn Demonstration;Requir es Review/Additional Education TREATMENT: Evaluation Evaluation Therapeutic Exercise: 1: tendon gliding 2: blocking 3: PROM small finger 4: assess incision deferred siuture removal til next week 5: instructed in edema reduction chun davison instructed in wear schedule 6: fabricated hand splint instructed in wear schedule and precautions Skilled Intervention: Patient was educated in proper exercise technique and purpose for exercises. Skilled judgment was provided in selection of appropriate interventions. Provided written instruction for home exercise program to facilitate proper performance and compliance. Self-Jail Management: 1: educated in diagnosis and healing 2: emphasized importance for frequent ROM Skilled Intervention: Skilled judgment in the selection of proper modification for activity of daily living/home management based on clinical presentation, deficits, and needs. Custom orthosis: L 3913 HFO custom w/o joints (oppon/ hand mendes/ hand trigger/ other) Custom orthosis to provide Pt practiced orthosis application, donning on/off while under OT's supervision. and to promote healing. Patient was instructed in care of orthosis and wearing schedule Protection only outdoors / heavy use.. Skilled Intervention: Clinical knowledge and skills required for custom orthotic fabrication and wearing schedule Billing: [place]: Evaluation - Moderate Complexity (59587) Self Care / Home Management (81254): 1:1 time:10 minutes (1 unit: 8-22 mins) Therapeutic Exercise (49388): 1:1 time:10 minutes (1 unit: 8-22 mins) Custom hand finger splint Total time: 55 minutes Rosanna Jerome OT/[facility] ANES Sandra 06-19-2019 ANES POST HNO ID: [id number] Author: Omer Melgar Service: Anesthesiology Author Type: Anesthesiologist Type: Anesthesia PostOp Filed: 06/19/2019 3:31 PM Note Text: POST ANESTHESIA EVALUATION NOTE SERVICE DATE: 06/19/2019 SERVICE TIME: 331 : 1975 Vitals: 06/19/19 1138 06/19/19 1500 06/19/19 1530 Temp: 37.1 ?C (98.8 ?F) 36.1 ?C (97 ?F) 36 ?C (96.8 ?F) 06/19/19 1235 06/19/19 1500 06/19/19 1515 06/19/19 1530 BP: 94/60 102/58 106/67 114/77 06/19/19 1235 06/19/19 1500 06/19/19 1515 06/19/19 1530 Pulse: (!) 54 77 62 (!) 53 06/19/19 1235 06/19/19 1500 06/19/19 1515 06/19/19 1530 Resp: 16 16 16 16 06/19/19 1235 06/19/19 1500 06/19/19 1515 06/19/19 1530 SpO2: 99% 96% 96% 98% Validated Vital Signs: Yes POST ANES STATUS: No apparent anesthetic complications. The patient is appropriately hydrated with stable respiratory and cardiovascular status. Patient has safe and adequate airway control. The patient has appropriate pain relief and no significant post operative nausea or vomiting. The patient has achieved baseline mental status. Intra-Operative Events: No Significant Anesthesia Events Further assessment by Anesthesia Service: None Other Remarks: SIGNATURE: Omer Melgar MD PATIENT NAME: Mary Jo Maldonado DATE: June 19, 2019 TIME: 3:31 PM PAGER/CONTACT #: anesthesia Normal [facility] ANES PREOPon 06-19-2019 ANES PREOP HNO ID: [id number] Author: Omer Melgar Service: Anesthesiology Author Type: Anesthesiologist Type: Anesthesia PreOp Filed: 06/19/2019 12:13 PM Note Text: ANESTHESIOLOGY DAY OF SURGERY NOTE SERVICE DATE: 06/19/2019 SERVICE TIME: 12.12 : 1975 Procedure(s) (LRB): ORIF METACARPAL (Right) Surgeon(s): Jose D Duran Estimated body mass index is 30.73 kg/m? as calculated from the following: Height as of 06/17/19: 162.6 cm (5' 4). Weight as of 06/17/19: 81.2 kg (179 lb). Most recent hematocrit and potassium results: Hematocrit 28.4 08/08/2002 ANES DOS/PREOP NOTE: Vitals: 06/19/19 1138 BP: 115/66 Pulse: (!) 54 Resp: 16 Temp: 37.1 ?C (98.8 ?F) SpO2: 98% ACTIVE PROBLEM LIST Migraine Without Aura, Intractable, Without Status Migrainosus Anxiety Gastroesophageal Reflux Disease Without Esophagitis Former Smoker Class 1 Obesity Due to Excess Calories Without Serious Comorbidity With Body Mass Index (Bmi) of 30.0 to 30.9 in Adult Closed Displaced Fracture of Neck of Fifth Metacarpal Bone of Right Hand PAST MEDICAL HISTORY Diagnosis Date - Anxiety - Migraine without aura, intractable, without status migrainosus 08/24/2018 PAST SURGICAL HISTORY Procedure Laterality Date - PAST SURGICAL HISTORY OF 1977 tonsils AND adenoids - PAST SURGICAL HISTORY OF 2005 tubes tied - PAST SURGICAL HISTORY OF 2005 right wrist surgery FAMILY HISTORY Problem Relation Age of Onset - Hypertension Mother - Thyroid Mother - Diabetes Father - Hypertension Father - Cancer Maternal Grandfather - Cancer Paternal Grandmother Social History: Social History Tobacco Use - Smoking status: Former Smoker Packs/day: 1.00 Types: Cigarettes Last attempt to quit: 02/11/2019 Years since quittin.3 - Smokeless tobacco: Never Used - Tobacco comment: no cigarettes; does vape Substance Use Topics - Alcohol use: Yes Comment: occasional - Drug use: Never No current facility-administere d medications on file prior to encounter. Current Outpatient Medications on File Prior to Encounter: ACETAMINOPHEN (TYLENOL ORAL) Take by mouth. escitalopram oxalate (LEXAPRO) 10 mg tablet topiramate (TOPAMAX) 25 mg tablet IBUPROFEN ORAL Take by mouth. Current Facility-Administere d Medications Medication Dose Route Frequency Provider Last Rate Last Dose - lidocaine 10 mg/mL (1 %) 1-2 mg injection (XYLOCAINE) 0.1-0.2 mL INTRADERMAL PRN Rhonda (Pa) [facility] - lactated ringers infusion 5-30 mL/hr INTRAVENOUS CONTINUOUS Rhonda (Pa) [facility] - clindamycin iv piggyback 600 mg in D5W 50 mL (CLEOCIN) 600 mg INTRAVENOUS Pre-Op Once Rhonda (Pa) [facility] - midazolam (PF) 2 mg injection (VERSED) 2 mg INTRAVENOUS Pre-Op Once Omer Melgar Allergies: ALLERGIES Allergen Reactions - Amoxicillin yeast infections - Tramadol GI Upset - Tylenol #3 [Codeine] GI Upset - Vicodin [Hydrocodon* GI Upset DOS EXAM: Adequate NPO status: Yes Anesthetic risks, benefits, alternatives, personnel and consent discussed: Yes Patient agrees to proceed: Yes Previous Anesthesia: No history of adverse event. Airway Assessment: MP 2; Neck ROM: Full ROM without neurologic symptoms; Airway Evaluation: No significant abnormalities Symptoms of Sleep Apnea: None Dentition: Poor dentition Additional Physical Exam: Lungs: Patient health status unchanged since recent history and physical. See history and physical for exam findings. Lungs clear to auscultation. Good diaphragmatic excursion. Cardiac: Patient health status unchanged since recent history and physical. See history and physical for exam findings. normal S1 and S2; no rubs, no murmurs, and no gallops Additional Pertinent Findings: N/A Blood Products: Not anticipated for this procedure. Anesthetic Plan: General, Standard ASA Monitors Pain Management Plan: Parenteral or Oral ASA Class: 2 Other Medical Problems: None Chronic Beta Elizabet medication administered within 24 hours: N/A I have interviewed and examined the patient. I have reviewed the medical record and/or the pre-anesthesia evaluation, pertinent labs, and test results. Significant changes in the patient's condition since the History and Physical, not otherwise documented in primary service progress notes: No This contains updated information obtained within 48 hours of Surgery/Procedure. SIGNATURE: Omer Melgar MD PATIENT NAME: Mary Jo Maldonado DATE: June 19, 2019 TIME: 12:12 PM CSN: [id number] [facility] NURSING PROGon 06-19-2019 NURSING PROG HNO ID: [id number] Author: Tami NolanRn) FRANTZ Garcia Service: Nursing Author Type: Registered Nurse Type: Nursing Progress Note Filed: 06/19/2019 12:48 PM Note Text: PRE OP LEARNING ASSESSMENT PROCEDURE/SURGERY: SURGERY: Preop protocol READINESS TO LEARN COGNITIVE ABILITY: Alert and oriented MOTIVATION TO LEARN: Eager FAMILY SUPPORT: High - Very involved in pt care PATIENT LEARNS BEST BY: Verbal Instruction FACTORS AFFECTING LEARNING: None PHYSICAL LIMITATIONS AFFECTING LEARNING: None Electronically Signed By: Tami Garcia RN In Department: [facility] OPERATIVE NOon 06-19-2019 OPERATIVE NO HNO ID: [id number] Author: Jose D Duran Service: Orthopaedic Surgery Author Type: Physician Type: Operative Report Filed: 06/23/2019 11:50 PM Note Text: OPERATIVE/PROCEDURE REPORT LOG ID: [id number] SURGERY/PROCEDURE DATE: 06/19/2019 INCISION/PROCEDURE START TIME: 2:11 PM INCISION CLOSE/PROCEDURE END TIME: 2:50 PM SURGEON(S)/PROCEDURA LIST(S) AND CHIEF LOCK TENDER OPERATOR(S): Surgeon(s) and Role: * Jose D Duran - Primary Physician Front Office Medical Assistant: Rhonda Russell (Pa) SURGERY/PROCEDURE(S) : Right, fifth metacarpal, open reduction and internal fixation. ANESTHESIA: Block Regional - Extremity Upper SURGERY/PROCEDURE DETAILS: This is a RHD, 43 yr old female who injured her right hand and sustained an angulated 5th MC fracture. She had malrotation and extensor lag. We reviewed the risks, benefits, alternatives and potential complications. She consented for surgery. On 06/19/2019, the patient was clearly identified and marked accordingly on the right, fifth finger. She received a regional block per the anesthetic team. She was given 600mg of Clinda in the IV within one hour of incision or tourniquet. She was taken to the OR and placed in a supine position . Anesthesia assumed control of the head and neck for the remainder of the case and added a MAC. The Right upper extremity was fitted with a tourniquet and set at 250mm Hg. It was then sterily prepped and draped in standard fashion. All other landmarks were appropriately padded in standard fashion. An appropriate timeout was conducted and all in the room were in agreement, signed consent form was on the chart, equipment was in the room.The extremity was exsanguinated with an eshmark bandage and the cuff was set at 250. A longitudinal incision was made over the extensor surface of the 5th MCP joint. Superficial dissection was made with tenotomy scissors. A longitudinal incision was made in the extensor tendon and down through the capsule. The fracture site was identified and a freer was used to enter the fracture site and lever the distal segment into anatomic alignment. The center of the MC head was identified And a k wire from the Accutrak micro screw set was driven in, across the fracture site in a center on center position and checked on fluoro. It was measured, drilled the near cortex, appropriately length screw selected and placed the headless screw with the correct amount of compression. Final images were obtained, showing appropriately positioned screw, and fracture reduction. The wound was copiously irrigated. The capsule was closed with 4-0 vicryl and the extensor mechanism was closed with 4-0 ethabond in a running, locked stitch. Last time irrigated and then the skin closed with 3-0 nylon. The finger was able to be flexed into a full flexed position. Xeroform gauze, 4 x 4s, webril cotton padding and a volar splint and light richardson and mal bandage for final dressings. The patient was safely awoken and transferred to the post-anesthesia care unit in stable condition. There were no complications during the procedure. PRE-OP/PRE-PROCEDURE DIAGNOSIS: Closed displaced fracture of neck of fifth metacarpal bone of right hand, initial encounter POST-OP/POST-PROCEDU RE DIAGNOSIS: Closed displaced fracture of neck of fifth metacarpal bone of right hand, initial encounter ESTIMATED BLOOD LOSS: 0 ml SPECIMENS: None IMPLANTABLE DEVICES: Accutrac micro 2.5mm DRAINS: None COMPLICATIONS: None PARTICIPATION IN SURGERY/PROCEDURE: I/primary surgeon/proceduralis t performed the procedure with assistance. No qualified resident/fellow was available. data entry assistant was required for patient transfer, positioning, tourniquet application, sterile prep and drape. Soft tissue retraction and digit/hand positioning during the procedure. Splint application and return to post care unit. SIGNATURE: Jose D Duran MD PATIENT NAME: Mary Jo Maldonado DATE: June 19, 2019 TIME: 3:05 PM PAGER/CONTACT #: [facility] OPERATIVE NO HNO ID: [id number] Author: Jose D Duran Service: Orthopaedic Surgery Author Type: Physician Type: Operative Report Filed: 08/05/2019 5:40 PM Note Text: dictated [facility] PT EDon 06-19-2019 PT ED HNO ID: [id number] Author: Carlota NolanRn) FRANTZ Herrera Service: Nursing Author Type: Registered Nurse Type: Patient Education Filed: 06/19/2019 3:47 PM Note Text: POST OP LEARNING RESPONSE INSTRUCTION PROVIDED TO: Patient and Family member METHOD OF INSTRUCTION: Individual instruction Written instruction - handouts Verbal instruction PATIENT / FAMILY RESPONSE: Verbalizes understanding of: POST-OPERATIVE INSTRUCTIONS-Correct actions to take to reduce postoperative complications FOLLOW-UP PLAN: Recommend - Recommend continued instruction and follow up as directed SUPPLEMENTAL MATERIAL: None REFERRAL (RECOMMENDATION): None Electronically Signed By: Carlota Herrera RN In Department: [facility] PT ED HNO ID: [id number] Author: Tami NolanRnLaurel Garcia RN Service: Nursing Author Type: Registered Nurse Type: Patient Education Filed: 06/19/2019 12:50 PM Note Text: Dr. Melgar at bedside for Right axillary nerve block. RN at bedside, pt monitored throughout, BP 115/66 Pulse (!) 54 Temp 37.1 ?C (98.8 ?F) Resp 16 LMP 12/30/2016 SpO2 98% . Pt tolerated procedure without difficulty. [facility] XR FLUOROSCOPYon 06-19-2019 XR FLUOROSCOPY * * *Final Report* * * DATE OF EXAM: Jun 19 2019 2:50PM MDR [id number] - XR FLUOROSCOPY / PROCEDURE REASON: ORIF RIGHT 5TH METACARPAL FOR FX * * * * Physician Interpretation * * * * INDICATION: ORIF RIGHT 5TH METACARPAL FOR FX TECHNIQUE: Fluoroscopy with 2 views of the right 5th metacarpal COMPARISON: 06/12/2019 Fluoroscopic Radiation Summary: Plane A, Air Kerma: 43.1 mGy Dose Area Product (DAP): 0.0 mGy*cmS2 Fluoro time: 2:01 min:sec FINDINGS/ IMPRESSION: Interval open reduction and internal fixation of the 5th metacarpal fracture. Satisfactory position of the cannulated screw and fracture fragments. Please refer to the performing LIP's report. Hazardous Waste Technician: PSCB Transcribe Date/Time: Jun 19 2019 3:08P Dictated by : BALDEV DALE MD This examination was interpreted and the report reviewed and electronically signed by: BALDEV DALE MD on Jun 19 2019 3:09PM EST [id number] [facility] NURSING PROGon 06-18-2019 NURSING PROG HNO ID: [id number] Author: Medina (Rn) FRANTZ Qiu Service: ? Author Type: Registered Nurse Type: Nursing Progress Note Filed: 06/18/2019 7:44 AM Note Text: PACC Nurse Progress Note History AND Physical: PACC Visit Date: 06/17/19 Original HANDP Date: N/A ED visit Date: N/A Outside HANDP Scanned Date: N/A Labs Within Last 6 Months: N/A Imaging Within Last 12 Months: X-ray-right hand Date of test: 06/12/19 See chart Cardiac Testing: N/A Last Menstrual Period: LMP Date: 12/30/16 Postmenopausal >1yr: Yes, S/P Hysterectomy: No BMI Percentile (PEDS): N/A Risk Assessment: N/A Anesthesia Review: N/A Narrative: Per HPI: GERD; Migraine; Anxiety Pre-op Considerations: N/A Chart Check: COMPLETED Medina Qiu RN June 18, 2019 7:43 AM [facility] HOSPon 06-13-2019 HOSP Patient:Mary Jo Maldonado MRN: Height:5' 4(1.626 m) Weight:179 lb (81.194 kg) Outpatient Medications as of 06/19/19: escitalopram oxalate (LEXAPRO) 10 mg tablet topiramate (TOPAMAX) 25 mg tablet ACETAMINOPHEN (TYLENOL ORAL) IBUPROFEN ORAL Admission/Clinic Administered Medications as of 06/19/19: lidocaine 10 mg/mL (1 %) 1-2 mg injection (XYLOCAINE) lactated ringers infusion clindamycin iv piggyback 600 mg in D5W 50 mL (CLEOCIN) Problem List: Migraine without aura, intractable, without status migrainosus [G43.019] Anxiety [F41.9] Gastroesophageal reflux disease without esophagitis [K21.9] Former smoker [Z87.891] Class 1 obesity due to excess calories without serious comorbidity with body mass index (BMI) of 30.0 to 30.9 in adult [E66.09, Z68.30] Closed displaced fracture of neck of fifth metacarpal bone of right hand [S62.336A] Allergies: Amoxicillin Tramadol Tylenol #3 [Codeine] Vicodin [Hydrocodone-Acetami nophen] Date Verified: 06/19/19 Lab Values No results within the last 30 days for the following basenames: K,HCT Progress Notes ([facility]): Jackie Milan Ma 06/13/2019 11:29 AM Signed Please schedule patient for Right hand 5th metacarpal open reduction internal fixation on 06/19/19. Dr. Duran is requesting Accutrak screws 2.0/2.4. Nelda Montoya [facility] 06/13/2019 2:10 PM Signed Surgical request and post ops completed. Patricia Arizmendi Ma 06/14/2019 9:37 AM Signed Surgery has been scheduled as requested. [facility] Notes [facility] Kathleen Michele RN 06/13/2019 10:35 AM Sign at close encounter Patient presents with: New Patient: right hand fracture AMB ROOMING INTAKE FLOWSHEET DATA Pain Pain Level: 5 Pain Location: Hand-Right Description: Shooting, Stabbing, Aching Duration Amount of Time: 1 Duration Units: Days Frequency: Continuous Intervention: Medication Patient states she punched a wall yesterday and injured right wrist. Patient is right handed. She was seen in urgent care. Wearing exos splint. She c/o pain in right wrist. is taking ibuprofen as needed with some relief. 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 Normal [facility] Vital Signs Date Time Vital Sign Value Performing Clinician Faci lity 07-14-2022 13:08-0400 Body temperature 98.4 [degF] Jalil Lomeli MD Work Phone: [facility] 07-14-2022 13:08-0400 Body weight 85.37 kg Jalil Lomeli MD Work Phone: [facility] 07-14-2022 13:08-0400 Diastolic blood pressure 84 mm[Hg] Jalil Lomeli MD Work Phone: [facility] 07-14-2022 13:08-0400 Heart rate 67 /min Jalil Lomeli MD Work Phone: [facility] 07-14-2022 13:08-0400 Respiratory rate 18 /min Jalil Lomeli MD Work Phone: [facility] 07-14-2022 13:08-0400 SaO2% (BldA) [Mass fraction] 99 % Jalil Lomeli MD Work Phone: [facility] 07-14-2022 13:08-0400 Systolic blood pressure 126 mm[Hg] Jalil Lomeli MD Work Phone: [facility] Encounters Encounter Date Encounter Type Care Provider Facility Start: 08-25-2025 ambulatory Gigi Walker Facility: [facility] Start: 07-23-2025 ambulatory Gigi Vishal Facility: [facility] Start: 07-04-2025 Encounter for genera l adult medical examination without abnormal findings Gigi [facility] Start: 06-25-2025 End: 06-25-[address] Gigi Walker DO Work Phone: -Laboratory [facility] Start: 06-25-2025 End: 06-25-[address] Gigi Walker DO -Laboratory [facility] Start: 06-25-2025 End: 06-25-2025 ambulatory Gigi Walker Facility:[facility] Start: 12-30-2024 End: 03-27-2025 ambulatory GUANAKO JEROME Tarun [facility] Start: 10-02-2024 End: 10-02-2024 Emergency department patient visit GIGI WALKER [facility] Start: 10-19-2023 End: 10-19-2023 ambulatory GIGI WALKER Facility:[facility] Start: 05-23-2023 End: 05-24-2023 Emergency department patient visit DR GIGI WALKER DO Facility:B Start: 02-14-2023 End: 02-14-2023 ambulatory GIGI WALKER Facility:[facility] Start: 07-14-2022 End: 07-14-2022 Subsequent hospital visit by physician Xr [facility] Work Phone: Radiology Comment on above: Upper back pain [M54 .9] Start: 07-14-2022 End: 07-14-2022 Patient encounter procedure Jalil Lomeli MD Work Phone: [facility] Comment on above: Upper back pain (Juliette daniel Dx) Start: 11-23-2021 End: 11-23-2021 Subsequent hospital visit by physician Xr [facility] Work Phone: Radiology Comment on above: Foot injury, left, i nitial encounter [F13.175B] Start: 09-28-2020 End: 09-28-2020 Subsequent hospital visit by physician Xr [facility] Work Phone: Radiology Comment on above: Hand pain, right [M7 9.641] Procedures Date Procedure Procedure Detail Performing Clinician Start: 06-25-2025 Vitamin D, 25-hydrox y measurement Dr. Gigi Walker DO Work Phone: Comment on above: Vitamin D StatusDefi ciency: <20 ng/mL (50nmol/L)Insufficiency: 20-30 ng/mL (50-75 nmol/L)Sufficiency: 30-100 ng/mL (75-250 nmol/L)Toxicity: >100 ng/mL (>250 nmol/L) Start: 07-14-2022 Radex spine thoracic 2 views Jalil Lomeli MD Work Phone: Start: 11-23-2021 Radex foot complete minimum 3 views Jose Womack APRN.LASER SPECIALIST Work Phone: Start: 09-28-2020 Radex hand minimum 3 views Krystina Will PA-C Work Phone: Plan of Treatment Date Care Activity Detail Author Start: 06-30-2024 Covid-19 Vaccine () Covid-19 Vaccine () [facility] Start: 06-30-2024 Influenza vaccination Influenza Vacc ine (#1) [facility] Start: 06-30-2022 Influenza vaccination INFLUENZA (#1) [facility] Start: 2019 COLOGUARD (FIT-DNA) COLOGUARD (FIT-D NA) [facility] Start: 2019 Colonoscopy COLONOSCOPY [facility] Start: 2019 COLORECTAL CANCER SCREENING COLORECTAL CANCER SCREENING [facility] Start: [address] COLONOGRAPHY [facility] Start: 2019 [facility]ET[facility]EN [facility] Start: 2019 Diabetes Screening Diabetes Screenin g [facility] Start: 2019 FECAL OCCULT BLOOD FECAL OCCULT BLOO D [facility] Start: 2019 Lipid panel Lipid Screening [facility] Start: 2019 LIPID SCREEN LIPID SCREEN [facility] Start: 2019 Screening for malign ant neoplasm of colon [facility] Start: 2019 SIGMOIDOSCOPY SIGMOIDOSCOPY [facility] Start: 2014 Mammography MAMMOGRAM [facility] Start: 2014 Screening for malign ant neoplasm of breast Mammogram Screening [facility] Start: 12-29-2008 PAP TESTING PAP TESTING [facility] Start: 12-29-2006 Screening for malign ant neoplasm of cervix Cervical Cancer Screening [facility] Start: 08-21-2006 HPV TESTING HPV TESTING [facility] Start: 1993 Hepatitis B Vaccine (1 of 3 - 19+ 3-dose series) Hepatitis B Vaccine (1 of 3 - 19+ 3-dose series) [facility] Start: 1993 Urine microalbumin profile [facility] Start: 1992 ANNUAL PCP TEAM STAINED GLASS PAINTER CHADWICK DISEASE VISIT ANNUAL PCP TEAM CHRONIC DISEASE VISIT [facility] Start: 1992 Depression Screening Depression Scre ening [facility] Start: 1992 HEPATITIS C SCREENING HEPATITIS C SC [facility] Start: 1992 Hepatitis C screening Hepatitis C Sc [facility] Start: 1992 HIV SCREENING HIV SCREENING [facility] Start: 1992 HIV screening HIV Screening [facility] Start: 1986 Adult depression scr eening assessment DEPRESSION SCREENING [facility] Start: 1980 PNEUMOCOCCAL (1 - PCV) PNEUMOCOCCAL (1 - PCV) [facility] Start: 1980 Pneumococcal vaccination Pneum ococcal Vaccine (1 of 2 - PCV) [facility] Start: 06-14-1975 COVID-19 VACCINE (#1) COVID-19 VACCI NE (#1) [facility] Start: 1974 HEPATITIS B (1 of 3 - 3-dose series) HEPATITIS B (1 of 3 - 3-dose series) [facility] Payers Date Payer Category Payer Self-pay 2019 Unknown [id number] 2015 Unknown [id number] 1975 Unknown [id number] 1974 Unknown [id number] 1974 Unknown [id number] [id number] Unknown [id number] Unknown [id number] [id number] [id number] Unknown [id number] Unknown [id number] Social History Date Type Detail Facility Start: 08-28-2020 End: 07-14-2022 Tobacco smoking status MDIS Smokes tobacco daily [facility] End: 02-11-2019 History of tobacco use Cigarette Smoker [facility] Start: 09-28-2020 End: 07-14-2022 Cigarettes smoked current (pack per day) - Reported 0.1 [facility] Start: 01-13-2020 End: 07-14-2022 Tobacco use and exposure Smokeless tobacco non-user [facility] Start: 09-28-2020 End: 07-14-2022 Alcohol intake Current drinker of alcohol (finding) [facility] Start: 06-13-2019 History SDOH Alcohol Comment occasional [facility] Start: 12-09-2019 End: 07-14-2022 Tobacco Comment vapes [facility] Start: 1975 Sex Assigned At Not on file [facility] Start: 08-29-2020 End: 07-14-2022 Exposure to SARS-CoV-2 (event) Not sure [facility] Start: 09-28-2020 End: 07-14-2022 Tobacco use panel [facility] National Score (1-10 0), lower number is lower risk Not on file [facility] Start: 1975 Sex Assigned At Female W [facility] Medical Equipment Procedure Code Equipment Code Equipment Origin al Text Equipment Identifier Dates Screw Acutrak 2 2.5-2.8mm Micro Full Thread Taper Titanium 30mm Bone Self - [id number] Start: 06-19-2019 Clinical Notes 09-28-2020 to 10-02-2024 Jalil Lomeli MD - 07/14/2022 1:14 PM Kayleen Brown, RT(R) - 11/23/2021 7:00 PM Kristina Martinez (Rt), Tech - 09/28/2020 6:20 PM EST Note Date & Type Note Facility 10-02-2024 Note Discharge Instructio ns Discharge Summary [address] [place] [id number] 10/02/2024 Patient: MARY JO MALDONADO Sex: Female : 1975 Age: 48y Thank you for visiting [facility]. You have been evaluated today by Aruna Hardwick D.O. for the following condition(s): Principal Diagnosis Muscle strain of the left triceps. INSTRUCTIONS Prescription Medications: cyclobenzaprine 10 mg tablet: Take 1 tablet by mouth every eight hours as needed for pain for 7 days, dispense 21 tablet. Refills 0. Notes prn muscle spasms. Pharmacy: [id number] - [address], [place] [id number]. Follow-up: Follow up with your healthcare provider. Understanding of the discharge instructions verbalized by patient. You have been given the following additional information: Muscle Strain in the Extremities Patient Signature 1 of 3 Discharge Instructions Facility [employer] Operator Date/Time General Instructions with ExitWriter [address] [place] [address] [id number] 10/02/2024 Patient: MARY JO MALDONADO Sex: Female : 1975 Age: 48y Thank you for visiting [facility]. You have been evaluated today by Aruna Hardwick D.O. for the following condition(s): Principal Diagnosis Muscle strain of the left triceps. INSTRUCTIONS Prescription Medications: cyclobenzaprine 10 mg tablet: Take 1 tablet by mouth every eight hours as needed for pain for 7 days, dispense 21 tablet. Refills 0. Notes prn muscle spasms. Pharmacy: [facility] #[id number] - [address], [place] [id number]. Follow-up: Follow up with your healthcare provider. Understanding of the discharge instructions verbalized by patient. ADDITIONAL INFORMATION 2 of 3 Discharge Instructions Muscle Strain in the Extremities A muscle strain is a stretching and tearing of muscle fibers. This causes pain, especially when you move that muscle. There may also be some swelling and bruising. Home care Keep the hurt area raised above heart level to reduce pain and swelling. This is especially important during the first 48 hours. Apply an ice pack over the injured area for 15 to 20 minutes every 3 to 6 hours. You should do this for the first 24 to 48 hours. You can make an ice pack by filling a plastic bag that seals at the top with ice cubes and then wrapping it with a thin towel. Be careful not to injure your skin with the ice treatments. Ice should never be applied directly to skin. Continue the use of ice packs for relief of pain and swelling as needed. After 48 hours, apply heat (warm shower or warm bath) for 15 to 20 minutes several times a day, or alternate ice and heat. You may use [id number] pain medicine to control pain, unless another medicine was prescribed. If you have chronic liver or kidney disease or ever had a stomach ulcer or gastrointestinal bleeding, talk with your healthcare provider before using these medicines. For leg strains: If crutches have been recommended, don't put full weight on the hurt leg until you can do so without pain. You can return to sports when you are able to hop and run on the injured leg without pain. Follow-up care Follow up with your healthcare provider, or as advised. When to seek medical advice Call your healthcare provider right away if any of these occur: The toes of the injured leg become swollen, cold, blue, numb, or tingly Pain or swelling increases 3 of 3 [facility] 10-19-2023 Note HNO ID: [id number] Author: Mesha Neri APRN.CNP Service: ? Author Type: Nurse Practitioner Type: Progress Notes Filed: 10/19/2023 6:10 PM Note Text: Subjective The history is provided by the patient. No speech language pathology assistant was used. HPI Mary Jo Maldonado is a 47 year old female who presents today for CC of needs a PCR covid test for work. She had two rapid positive tests this week. She is having cough, nasal congestion, ear pressure, and runny nose Symptoms started Monday evening. She denies any fever, sob, nausea, vomiting diarrhea. Using dayquil and nyquil with short term relief. BP 130/90 Pulse 90 Temp 36.9 ?C (98.5 ?F) Resp 21 Wt 86.2 kg (190 lb) LMP 12/30/2016 SpO2 97% BMI 32.61 kg/m? Social History Tobacco Use Smoking status: Every Day Packs/day: .05 Types: Cigarettes Last attempt to quit: 02/11/2019 Years since quittin.6 Smokeless tobacco: Never Tobacco comments: vapes Vaping Use Vaping Use: current everyday user Substance Use Topics Alcohol use: Yes Comment: occasional Drug use: Never PAST MEDICAL HISTORY Diagnosis Date Anxiety Hypothyroidism Migraine without aura, intractable, without status migrainosus 08/24/2018 I have confirmed and edited as necessary, the [facility] Review of Systems Constitutional: Negative for chills and fever. HENT: Negative for congestion, ear pain, sinus pain and sore throat. Respiratory: Positive for cough. Negative for sputum production, shortness of breath and wheezing. Cardiovascular: Negative for chest pain. Musculoskeletal: Negative for myalgias. Neurological: Negative for headaches. Objective Physical Exam Vitals and nursing note reviewed. HENT: Head: Normocephalic and atraumatic. Right Ear: Tympanic membrane, ear canal and external ear normal. Left Ear: Tympanic membrane, ear canal and external ear normal. Nose: Mucosal edema, congestion and rhinorrhea present. Right Sinus: No maxillary sinus tenderness or frontal sinus tenderness. Left Sinus: No maxillary sinus tenderness or frontal sinus tenderness. Mouth/Throat: Pharynx: Uvula midline. Posterior oropharyngeal erythema present. No oropharyngeal exudate. Cardiovascular: Rate and Rhythm: Normal rate and regular rhythm. Heart sounds: Normal heart sounds. Pulmonary: Effort: Pulmonary effort is normal. Breath sounds: Normal breath sounds. Lymphadenopathy: Head: Right side of head: No submental, submandibular or tonsillar adenopathy. Left side of head: No submental, submandibular or tonsillar adenopathy. Cervical: No cervical adenopathy. Skin: General: Skin is warm and dry. Neurological: Mental Status: She is alert. Psychiatric: Mood and Affect: Affect normal. ASSESSMENT/PLAN: 1. URI with cough and congestion - ICD9: 465.9, ICD10: J06.9 (primary diagnosis) - Discussed viral etiology and rationale for treatment. - Symptomatic treatment with prn analgesia - Supportive care with fluids and rest 2. Positive self-administered antigen test for COVID-19 - ICD9: 079.89, ICD10: U07.1 PCR done, guidelines discussed. - COVID NAAT, UPPER RESPIRATORY, ROUTINE Diagnosis and treatment plan were discussed and questions were answered to the patient's satisfaction. Pt acknowledged understanding of concepts and follow up plan. Specific signs and symptoms that would indicate the need for higher level of care were discussed in detail warranting prompt ER evaluation. Mesha Neri APRN.LASER SPECIALIST [facility] 02-14-2023 Note HNO ID: [id number] Author: Sharon De Paz APRN.LASER SPECIALIST Service: ? Author Type: Nurse Practitioner Type: Progress Notes Filed: 02/14/2023 2:48 PM Note Text: Subjective Came in with complaints of itching rash on bilateral lower legs. Patient says she had it about 10 days. Patient says about 2 weeks ago she was clearing trees from her yard. Patient's never had poison crystal. Patient denies any other symptoms. The history is provided by the patient. No speech language pathology assistant was used. Rash Review of Systems Skin: Positive for itching and rash. Objective Physical Exam Constitutional: Appearance: Normal appearance. Pulmonary: Effort: Pulmonary effort is normal. Skin: Comments: Patient does have contact dermatitis located in the areas marked above that appear to be vesicular in nature and consistent with contact dermatitis of poison crystal. Neurological: Mental Status: She is alert. PAST MEDICAL HISTORY Diagnosis Date Anxiety Hypothyroidism Migraine without aura, intractable, without status migrainosus 08/24/2018 PAST SURGICAL HISTORY Procedure Laterality Date CAPSULECTOMY/CAPSULOTOMY IPHAL JOINT EACH Right 11/26/2019 Right 5th finger capsulotomy, MCP joint tenolysis of extensor tendons, manipulation under anesthesia PIP joint OPEN TX METACARPAL FRACTURE SINGLE EA BONE Right 06/19/2019 ORIF Right 5th MC PAST SURGICAL HISTORY OF 1977 tonsils AND adenoids PAST SURGICAL HISTORY OF 2005 tubes tied PAST SURGICAL HISTORY OF 2006 right wrist surgery ALLERGIES Amoxicillin, Tramadol, Tylenol #3 [Codeine], and Vicodin [Hydrocodone-Acetaminophen] MEDICATIONS levothyroxine (SYNTHROID) 88 mcg tablet Take 1 tablet by mouth once daily. citalopram (CELEXA) 20 mg tablet Take 20 mg by mouth once daily. LORazepam (ATIVAN) 0.5 mg Take 0.5-1 mg by mouth twice daily as needed. omeprazole (PRILOSEC) 20 mg capsule 40 mg. ACETAMINOPHEN (TYLENOL ORAL) Take by mouth. predniSONE (DELTASONE) 10 mg tablet Take 4 tabs daily for 3 days, then 2 tabs daily for 3 days, then 1 tab daily for 3 days with food. FAMILY HISTORY Problem Relation Age of Onset Hypertension Mother Thyroid Mother Diabetes Father Hypertension Father Cancer Maternal Grandfather Cancer Paternal Grandmother Social History Tobacco Use Smoking status: Every Day Packs/day: 0.05 Types: Cigarettes Last attempt to quit: 02/11/2019 Years since quittin.0 Smokeless tobacco: Never Tobacco comments: vapes Vaping Use Vaping Use: current everyday user Substance Use Topics Alcohol use: Yes Comment: occasional Drug use: Never ASSESSMENT/PLAN: 1. Allergic contact dermatitis due to plants, except food - ICD9: 692.6, ICD10: L23.7 - PREDNISONE 10 MG TABLET Patient was educated about proper use of medication supportive therapies. Patient will follow-up if signs and symptoms seem to getting worse not better. Patient was okay with this care plan. Sharon De Paz APRN.[facility] 07-14-2022 History of Present illness Narrative Patient presents with: Fall: Pt reported fall at home 07/13/2022 mid back pain rated 8 w/mvmt. HPI: Back pain: Duration: fell in bath tub yesterday. Character: sharp with movement, constant pain Location: center of back Radiation: No. Aggravating: bending and twisting, deep breaths Relieving: holding still, lying down Pain relievers: Advil dual action Associated: lingering COVID cough Pertinent negatives: Denies numbness or weakness, fever, visible bruising. MEDICATIONS: citalopram (CELEXA) 20 mg tablet Take 20 mg by mouth once daily. LORazepam (ATIVAN) 0.5 mg Take 0.5-1 mg by mouth twice daily as needed. omeprazole (PRILOSEC) 20 mg capsule 40 mg. ACETAMINOPHEN (TYLENOL ORAL) Take by mouth. levothyroxine (SYNTHROID) 88 mcg tablet Take 1 tablet by mouth once daily. ALLERGIES: ALLERGIES Allergen Reactions Amoxicillin yeast infections Tramadol GI Upset Tylenol #3 [Codeine] GI Upset Vicodin [Hydrocodon* GI Upset VITALS: BP 126/84 Pulse 67 Temp 36.9 C (98.4 F) Resp 18 Wt 85.4 kg (188 lb 3.2 oz) LMP 12/30/2016 SpO2 99% BMI 32.30 kg/m PHYSICAL EXAM: GEN: pleasant, no acute distress, alert. Sits still in her chair to avoid pain. NECK: Supple. No lymphadenopathy or thyromegaly. No midline or paraspinal tenderness. HEART: regular rate, regular rhythm, no murmurs LUNGS: clear to auscultation, no wheezes or crackles, no increased WOB CHEST: No paraspinal tenderness. Tender thoracic spine around T8-T12. ABD: soft, non-distended, no masses palpated, non-tender EXT: no clubbing, no cyanosis, no edema BACK: Normal curvature of spine. No lumbar midline or paraspinal tenderness. Normal lower extremity strength. ASSESSMENT/PLAN: 1. Upper back pain - ICD9: 724.5, ICD10: M54.9 - XR THORACIC LIMITED 2V AP/LAT -no obvious fractures. Radiology interpretation is pending. The patient will be notified if there is a significant finding in the report not discussed at the time of the visit. Supportive care with as needed OTC analgesia. Follow-up with increasing pain, shortness of breath, progressive numbness or weakness. Jalil Lomeli MD documented in this encounter [facility] 11-23-2021 History of Present illness Narrative Radiology Service Progress Note PATIENT NAME: Mary Jo Maldonado DATE OF SERVICE: November 23, 2021 TIME: 6:57 PM PATIENT IDENTITY VERIFICATION COMPLETED USING TWO (2) IDENTIFIERS: Name and Date of confirmed by patient verbally. FALL SCREENING: Has the patient had 2 falls in the last year or 1 fall with injury or currently using an Ambulatory Assistive Device (Walker, Cane, Wheelchair, Crutches, etc.)? No PATIENT GENDER DATA: Female. status: : No status: NO. PATIENT RELEVANT IMPLANT DATA REVIEWED: Not Applicable RADIOLOGY DEPARTMENT: General X-ray: Exam(s) Completed: Lower Extremity X-Ray(s): Foot, Left and Wt. Bearing PERIPHERAL IV DATA: Not applicable SIGNED BY: RT Dajuan(R) November 23, 2021 6:57 PM documented in this encounter [facility] 09-28-2020 History of Present illness Narrative Radiology Service Progress Note PATIENT NAME: Mary Jo Maldonado DATE OF SERVICE: September 28, 2020 TIME: 6:01 PM PATIENT IDENTITY VERIFICATION COMPLETED USING TWO (2) IDENTIFIERS: Name and Date of confirmed by patient verbally. FALL SCREENING: Has the patient had 2 falls in the last year or 1 fall with injury or currently using an Ambulatory Assistive Device (Walker, Cane, Wheelchair, Crutches, etc.)? No PATIENT GENDER DATA: Female. status: : No status: NO. PATIENT RELEVANT IMPLANT DATA REVIEWED: Yes RADIOLOGY DEPARTMENT: General X-ray: Exam(s) Completed: Upper Extremity X-Ray(s): Hand, right : PERIPHERAL IV DATA: Not applicable SIGNED BY: RT Rhonda September 28, 2020 6:01 PM documented in this encounter [facility] Evaluation note Diagnosis Upper back pain- Primary [facility] Diagnosis Pre-operative examination- Primary Preoperative examination, unspecified Closed displaced fracture of neck of fifth metacarpal bone of right hand, sequela Anxiety Anxiety state, unspecified Gastroesophageal reflux disease without esophagitis Esophageal reflux Migraine without aura, intractable, without status migrainosus Class 1 obesity due to excess calories without serious comorbidity with body mass index (BMI) of 30.0 to 30.9 in adult Former smoker Personal history of tobacco use, presenting hazards to health Pre-operative examination- Primary Preoperative examination, unspecified Closed displaced fracture of neck of fifth metacarpal bone of right hand, sequela Hypokalemia Hypopotassemia Other specified hypothyroidism Gastroesophageal reflux disease without esophagitis Esophageal reflux Migraine without aura, intractable, without status migrainosus Anxiety Anxiety state, unspecified Class 1 obesity due to excess calories without serious comorbidity with body mass index (BMI) of 32.0 to 32.9 in adult Former smoker Personal history of tobacco use, presenting hazards to health Upper back pain documented in this encounter [facility] note* Diagnosis Pre-operative examination- Primary Preoperative examination, unspecified Closed displaced fracture of neck of fifth metacarpal bone of right hand, sequela Anxiety Anxiety state, unspecified Gastroesophageal reflux disease without esophagitis Esophageal reflux Migraine without aura, intractable, without status migrainosus Class 1 obesity due to excess calories without serious comorbidity with body mass index (BMI) of 30.0 to 30.9 in adult Former smoker Personal history of tobacco use, presenting hazards to health Pre-operative examination- Primary Preoperative examination, unspecified Closed displaced fracture of neck of fifth metacarpal bone of right hand, sequela Hypokalemia Hypopotassemia Other specified hypothyroidism Gastroesophageal reflux disease without esophagitis Esophageal reflux Migraine without aura, intractable, without status migrainosus Anxiety Anxiety state, unspecified Class 1 obesity due to excess calories without serious comorbidity with body mass index (BMI) of 32.0 to 32.9 in adult Former smoker Personal history of tobacco use, presenting hazards to health Hand pain, right Pain in limb [facility] noteNo assessment information availableWMercy Health [facility] Work Phone: Reason for referral (narrative)* Diagnostic Procedure Only (Urgent) - Closed Specialty Diagnoses / Procedures Referred By Contac t Referred To Contact XR IMAGING Diagnoses Upper back pain Procedures XR THORACIC LIMITED 2V AP/LAT RADEX SPINE THORACIC 2 VIEWS Jalil Lomeli MD [address] [place] [address] Xr Imaging Referral ID Status Reason Start Date Expiration Date V isits Requested Visits Authorized [id number] Closed Auto-Generate d Referral 07/14/2022 10/29/2022 1 1 [facility] for referral (narrative)* Diagnostic Procedure Only (Urgent) - Closed Specialty Diagnoses / Procedures Referred By Contac t Referred To Contact XR IMAGING Diagnoses Upper back pain Procedures XR THORACIC LIMITED 2V AP/LAT RADEX SPINE THORACIC 2 VIEWS Jalil Lomeli MD [address] [place] [address] [place] [address] Referral ID Status Reason Start Date Expiration Date V isits Requested Visits Authorized [id number] Closed Auto-Generate d Referral 07/14/2022 10/29/2022 1 1 [facility] for referral (narrative)No reason for referral information availableWMercy Health [facility]ard Hospital Work Phone: [facility] Narrative* Diagnostic Procedure Only (Urgent) - Closed Specialty Diagnoses / Procedures Referred By Contac t Referred To Contact XR IMAGING Diagnoses Upper back pain Procedures XR THORACIC LIMITED 2V AP/LAT RADEX SPINE THORACIC 2 VIEWS Jalil Lomeli MD [address] [place] [address] [place] [address] Referral ID Status Reason Start Date Expiration Date V isits Requested Visits Authorized [id number] Closed Auto-Generate d Referral 07/14/2022 10/29/2022 1 1 [facility] for visit Narrative* Diagnostic Procedure Only (Urgent) - Closed Specialty Diagnoses / Procedures Referred By Contac t Referred To Contact XR IMAGING Diagnoses Foot injury, left, initial encounter Procedures XR FOOT GENERAL 3V AP/LAT/OBL LEFT RADEX FOOT COMPLETE MINIMUM 3 VIEWS VuJose, DRY PAN OPERATOR.LASER SPECIALIST [address] [place] [address] [place] [address] Referral ID Status Reason Start Date Expiration Date V isits Requested Visits Authorized [id number] Closed Auto-Generate d Referral 11/23/2021 10/29/2022 1 1 [facility] Summary Purpose Family History No Family History Records Found Relationship Condition Age at Onset Recorded Date/T osiris Not Specified Disorder of intestine Unknown Disorder of liver Unknown Diabetes mellitus Unknown Cardiac disease Unknown Hyperlipidemia Unknown Kidney disorder Unknown Myocardial infarction Unknown Hemorrhagic disorder Unknown Malignant neoplasm Unknown Hypertension Unknown Malignant neoplasm of uterus Unknown Cerebrovascular accident (CVA) Unknown Advance Directives No Advanced Directives Records FoundNo Advanced Directives Records FoundNo Advanced Directives Records FoundNo Advanced Directives Records FoundNo Advanced Directives Records Found Additional Source Comments INFORMATION SOURCE (unrecogn ized section and content) DATE CREATED AUTHOR 04/03/2020 [facility] DATE CREATED AUTHOR AUTHOR'S ORGANIZ ATION 05/29/2023 [facility] ([place]) DATE CREATED AUTHOR AUTHOR'S ORGANIZ ATION 10/21/2023 [facility] DATE CREATED AUTHOR AUTHOR'S ORGANIZ ATION 07/17/2025 [facility] DATE CREATED AUTHOR AUTHOR'S ORGANIZ ATION 07/24/2025 [facility] Source Comments (unrecognize d section and content) In the event this informatio n is protected by the Federal Confidentiality of Alcohol and Drug Abuse Patient Records regulations: The Federal rules restrict any use of the information to criminally investigate or prosecute any alcohol or drug abuse patient.[facility] the event this information is protected by the Federal Confidentiality of Alcohol and Drug Abuse Patient Records regulations: The Federal rules restrict any use of the information to criminally investigate or prosecute any alcohol or drug abuse patient.[facility] the event this information is protected by the Federal Confidentiality of Alcohol and Drug Abuse Patient Records regulations: The Federal rules restrict any use of the information to criminally investigate or prosecute any alcohol or drug abuse patient.[facility] the event this information is protected by the Federal Confidentiality of Alcohol and Drug Abuse Patient Records regulations: The Federal rules restrict any use of the information to criminally investigate or prosecute any alcohol or drug abuse patient.[facility] Reason for Visit (unrecogniz ed section and content) Reason Comments Fall Pt reported fall at home 07/13/2022 mid back pain rated 8 w/mvmt. Specialty Diagnoses / Procedures Referred By David t Referred To Contact [facility] Diagnoses Examination Tripped and fell into bath tub hurting back (patient denies hitting head) Procedures OFFICE/OUTPATIENT ESTABLISHED MOD MDM 30-39 MIN NEW SAME DAY [facility] [address] [place] [address] Referral ID Status Reason Start Date Expiration Date Visits Re quested Visits Authorized [id number] Closed 07/14/2022 10/29/2022 1 1 Specialty Diagnoses / Procedures Referred By David lopez Referred To Contact [facility] Diagnoses RIGHT HAND BELOW INDEX FINGER SOMETHING IN IT Procedures URGENT CARE [facility] [address] [facility] [place] [address] Referral ID Status Reason Start Date Expiration Date Visits Re quested Visits Authorized [id number] Closed 09/28/2020 12/27/2020 99 99 Care Teams (unrecognized sec tion and content) Electrical Research Engineer Relationship Specialty Start Date End Date Gigi Walker DO [address] [place] [address] PCP - General Family Practice 08/24/18 Electrical Research Engineer Relationship Specialty Start Date End Date Gigi Walker DO [address] [address] PCP - General Family Medicine 08/24/18 Electrical Research Engineer Relationship Specialty Start Date End Date Giig Walker DO [address] [place] [address] PCP - General Family Medicine 08/24/18 Electrical Research Engineer Relationship Specialty Start Date End Date Gigi Walker DO [address] [place] [address] PCP - General Family Medicine 08/24/18 Team Status: Active Member Role/Relationship Status Dates Dr. Gigi Walker DO Family Provider Active Dr. Gigi Walker DO Primary Care Provider Active Team Status: Inactive Member Role/Relationship Status Dates Dr. Gigi Walker DO Primary Care Provider Active Start: June 25, 2025 End: June 25, 2025 Dr. Gigi Walker DO Attending Provider Active Start: June 25, 2025 End: June 25, 2025 Goals (unrecognized section and content) Goals may be documented in a n alternate section FOR RECORDS PERTAINING TO PATIENTS WHO ARE OR HAVE BEEN ENROLLED IN A CHEMICAL DEPENDENCY/SUBSTANCEABUSE PROGRAM, SOME INFORMATION MAY BE OMITTED. This clinical summary was aggregated from multiple sources. Caution should be exercised in using it in the provision of clinical care. This summary normalizes information from multiple sources, and as a consequence, information in this document may materially change the coding, format and clinical context of patient data. In addition, data may be omitted in some cases. CLINICAL DECISIONS SHOULD BE BASED ON THE PRIMARY CLINICAL RECORDS. [email or web address]. provides no warranty or guarantee of the accuracy or completeness of information in this document.
[2025-07-24] MEDS: Lidocaine 1% (20 ml mdv) 20 ML Vial INFILT (20:44)
--- NOTE | 2025-07-24 21:17 | EX.ED.DYSGE1 ---
HPI History of Present Illness Chief Complaint: Wound Detail of Chief Complaint: Read painful swollen area left temporal area Informant: patient Onset/Context/Timing Onset: Days Context: Sudden Onset Timing: Continuous Quality: Pain and swelling Location: Left temporal region Current Severity: Mild Maximum Severity: Moderate Worsened by: Palpation Relieved by: Nothing Associated Symptoms Associated Symptoms: No constitutional visual symptoms. Narrative Narrative: Patient is a 49-year-old woman. She presents with redness swelling pain left muslim area. She has no ocular symptoms. She denies fever, chills night sweats. She is not diabetic. She does have a history of GERD/reflux and hypothyroidism. She has no other complaints. Prior similar symptoms: No Recent Illness/Hospitalization: No [facility] Medical History (Updated 07/24/25 @ 21:[address] 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 07/24/25 Unknown History Thyroid) Allergy/AdvReac Type Severity Reaction Status Date / Time adhesive tape Allergy Severe Unknown Verified 07/24/25 19:47 Penicillins AdvReac Severe Vomiting Verified 07/24/25 19:47 tramadol AdvReac Intermediate Vomiting Verified 07/24/25 19:47 Family History Other Bleeding disorder Bowel disease CVA (cerebral vascular accident) Cancer Diabetes Heart disease Hyperlipidemia Hypertension Kidney disease Liver disease Myocardial infarction Uterine cancer Surgical History H/O hand surgery Hx of tubal ligation H/O adenoidectomy Hx of tonsillectomy Social History Smoking Status: Current every day smoker tobacco type: e-cigarettes alcohol intake: current substance use type: does not use what type of physical activity do you participate in: none ROS ROS ED Constitutional Constitutional ED: Denies chills, fever(s), subjective or sweats Eyes Eyes: Denies blurry vision, change in vision or diplopia ENT ENT ED: Denies ear pain, rhinorrhea or sore throat Cardiovascular Cardiovascular: Denies chest pain or palpitations Respiratory/Chest Respiratory/Chest: Denies cough or dyspnea Gastrointestinal Gastrointestinal: Denies nausea or vomiting Neurologic Neurologic: Denies headache(s), paresthesias or weakness Hematologic/Lymphatic Hematologic/Lymphatic: Denies easy bleeding or easy bruising EXAM Physical Exam Const Vital Signs: 07/24/25 19:43 07/24/25 20:05 Temperature 97.6 F L Temperature Source Temporal Pulse Rate 94 Respiratory Rate 18 Respiratory Effort Normal Non-Labored Respiratory Pattern Normal Blood Pressure 154/87 H Blood Pressure Mean 109 Pulse Ox 100 Oxygen Delivery Method Room Air Positive well nourished and well developed Constitutional Narrative: Vital signs are marked for an elevated blood pressure otherwise unremarkable General Appearance ED: well developed; Negative for cyanotic or diaphoretic HEENT Denies moist mucous membranes HEENT Narrative: Near the left muslim area there is a area of erythema swelling that is 1 cm x 2 cm. The area is fluctuant. Ears are normal. tenderness; Negative for trauma Eyes PERRL and EOMs intact bilaterally General Eye ED: Negative for pale conjunctiva or scleral icterus Resp normal respiratory effort Cardio regular rate and regular rhythm Neuro oriented x3 and CN's II-XII intact bilaterally Sensorium / Orientation: alert Psych mental status grossly normal Skin No no rashes or lesions noted, no wounds and skin turgor normal Skin Narrative: Abscess left side of the head near the hairline and forehead [facility] [place] Medical decision making narrative: With left muslim area at an age of 50 need to consider temporal arteritis however since this is erythematous fluctuant suspect this is an abscess. Patient was consented for I&D. Patient was prepped draped sterile manner. The area anesthetized with 1% lidocaine. An incision was made with a 15 blade. The length and incision was 1 cm. There was a white purulent material noted. There is a small cavity approximately the size of a chickpea with further purulent material noted. Wick was placed. Patient received first dose of antibiotics in the emergency department. Procedures Other Procedures Procedure(s): I&D of scalp abscess. 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 Follow-up with Dr. Rodgers for wound check in 2 days and have wick removed. 2. Take antibiotics until gone Print Language: American Disposition Disposition: Home, Self Care
[2025-07-24 21:28] VITALS: BP 139/98; PULSE 63; RESP 18; TEMP 36.6; O2SAT 100
== END 2025-07-24 21:29 | disposition home or self-care (01) ==
PROVIDERS: Emergency Provider Emergency Medicine; PCP Family Medicine; Visit Provider Emergency Medicine
DX: L02.811 Cutaneous abscess of head [any part, except face] (principal); K21.9 Gastro-esophageal reflux disease without esophagitis; E06.3 Autoimmune thyroiditis; Z79.890 Hormone replacement therapy; Z79.899 Other long term (current) drug therapy; F17.290 Nicotine dependence, other tobacco product, uncomplicated
CPT/HCPCS: 10060; 99284